=== PATIENT | male | born 1930 | race Caucasian/White ===

== ENCOUNTER 2017-11-12 19:06 | Inpatient (IN) | payer MEDICARE ==
[~2017-11-12] VITALS: Ht 182.9 cm; Wt 61.0 kg
--- NOTE | 2017-11-12 19:41 | PHYS DOC ---
Adult General Chief Complaint Chief Complaint: PSYCH EVALUATION HPI HPI Patient is a 87 year old M who presents with medical clearance for [facility]. Patient has been accepted to the [facility] for increased combativeness and worsening altered mental status. Patient has no family at bedside and is an alert and oriented 1. Review of Systems Review of Systems Review of systems unable to obtain secondary to clinical condition All other systems were reviewed and found to be within normal limits, except as documented in this note. Physical Exam Physical Exam GEN.: No apparent distress. Alert and oriented x 1 HEENT: Head is normocephalic, atraumatic NECK: Supple. LUNGS: CTAB. HEART: RRR, 4/6 REFUGIO. Peripheral pulses intact ABDOMEN: Soft, nontender. Positive bowel sounds. EXTREMITIES: Without any cyanosis. NEUROLOGIC: AOx1 PSYCHIATRIC: Confused SKIN: No ulcerations EKG EKG 1943: EKG shows normal sinus rhythm rate of 85 no STEMI[] Radiology/Procedures Radiology/Procedures [] Course & Med Decision Making Course & Med Decision Making Pertinent Labs and Imaging studies reviewed. (See chart for details) MDM: After reviewing the chart, CC/HPI/PMH, physical exam, [lab results], I do not believe the patient has emergent medical condition warranting further workup and /or admission at this time. I believe the patient is stable to be transferred to the [facility] unit for further psychiatric evaluation. [] Dragon Disclaimer Dragon Disclaimer This electronic medical record was generated, in whole or in part, using a voice recognition dictation system. Departure Departure: Impression: Primary Impression: Combative behavior Additional Impression: Dementia Disposition: 65 XFER TO PSYCH HOSP/UNIT Condition: STABLE Referrals: PCP,UNKNOWN (PCP) Problem Qualifiers JAYY GARY DO Nov 12, 2017 19:41
[2017-11-12 19:45] VITALS: BP 172/72
[2017-11-12 20:31] LABS: BASO # 0.1 x10^3/uL (0.0-0.2); BASO % 1 % (0-3); EOS # 0.4 x10^3/uL (0.0-0.7); EOS % 7 % (0-3); HEMATOCRIT 35.5 % (39.0-53.0); HEMOGLOBIN 12.1 g/dL (13.0-17.5); LYMPH # 1.2 x10^3/uL (1.0-4.8); LYMPH % 20 % (24-48); MEAN CORPUSCULAR HEMOGLOBIN 31 pg (25-35); MEAN CORPUSCULAR HGB CONC 34 g/dL (31-37); MEAN CORPUSCULAR VOLUME 92 fL (79-100); MONO # 0.7 x10^3/uL (0.0-1.1); MONO % 11 % (0-9); NEUT # 3.8 x10^3uL (1.8-7.7); NEUT % 62 % (31-73); PLATELET COUNT 223 x10^3/uL (140-400); RED BLOOD COUNT 3.85 x10^6/uL (4.30-5.70); RED CELL DISTRIBUTION WIDTH 15.8 % (11.5-14.5); WHITE BLOOD COUNT 6.2 x10^3/uL (4.0-11.0)
[2017-11-12 20:51] LABS: ALBUMIN 3.2 g/dL (3.4-5.0); ALBUMIN/GLOBULIN RATIO 0.9 (1.0-1.7); CALCIUM 8.6 mg/dL (8.5-10.1); GFR 70.4; POTASSIUM 3.6 mmol/L (3.5-5.1); TOTAL BILIRUBIN 0.4 mg/dL (0.2-1.0); TOTAL PROTEIN 6.7 g/dL (6.4-8.2)
[2017-11-12 20:53] LABS: BILIRUBIN,URINE NEG (NEG); CLARITY,URINE CLEAR; COLOR,URINE YELLOW; GLUCOSE,URINE NEG (NEG)
[2017-11-12 20:54] LABS: BACTERIA,URINE 0 /HPF (0-FEW); NITRITE,URINE NEG (NEG); SQUAMOUS EPITHELIAL CELL,UR OCC /LPF; UROBILINOGEN,URINE 2 mg/dL (0.2 mg/dL); WBC,URINE OCC /HPF (0-4)
[2017-11-12 20:58] LABS: AMPHETAMINE/METHAMPHETAMINE NEG (NEG); BARBITURATES NEG (NEG); BENZODIAZEPINES NEG (NEG); CANNABINOIDS NEG (NEG); COCAINE NEG (NEG); METHADONE NEG (NEG); OPIATES NEG (NEG); PHENCYCLIDINE NEG (NEG)
[2017-11-12] MEDS ORDERED: CLOP75TA PO (22:01)
[2017-11-12] MEDS ORDERED: ACET325T9 PO ×2 (22:01)
[2017-11-12] MEDS ORDERED: LEVE500T56 PO (22:01)
[2017-11-12] MEDS ORDERED: CHOL500021 PO (22:01)
[2017-11-12] MEDS ORDERED: TRIA15CR50 TP (22:01)
[2017-11-12] MEDS ORDERED: HYDR1TAB12 PO (22:01)
[2017-11-12] MEDS ORDERED: LEVO100T5 PO (22:01)
[2017-11-12] MEDS ORDERED: VIT1CAPS12 PO (22:01)
[2017-11-12] MEDS ORDERED: MIRT15TA PO (22:01)
[2017-11-12] MEDS ORDERED: LORA0.5T PO (22:01)
[2017-11-12] MEDS ORDERED: MAG HYDROX/AL HYDROX/SIMETH 30 ML ORAL.SUSP PO PRN (22:15)
[2017-11-12] MEDS ORDERED: ACETAMINOPHEN 325 MG TABLET PO PRN ×2 (22:15→23:15)
[2017-11-12 22:22] VITALS: BP 142/75
[2017-11-12] MEDS: MIRTAZAPINE 15 MG TABLET PO SCH (22:30)
[2017-11-12] MEDS: LORazepam 0.5 MG TABLET PO SCH (22:30)
--- NOTE | 2017-11-12 22:41 | EKG ---
[address] [address] Test Date: 2017-11-12 Test Time: 19:40:14 Pat Name: CHRIS MEHTA Department: Room: [address] [place] [address] Gender: M [employer]per: : 1930 Requested By: JAYY GARY Order Number: [id number] Reading MD: Tanvir Whitman Measurements Intervals [place] Rate: 85 P: 36 SD: 186 QRS: 33 QRSD: 78 T: 44 QT: 356 QTc: 429 Interpretive Statements SINUS RHYTHM Electronically Signed On 11-25-2017 9:54:45 CDT by Tanvir Whitman
[2017-11-12] MEDS ORDERED: TRIAMCINOLONE ACETONIDE 0.1% TOPICAL CREAM 15GM TUBE. TP PRN (23:15)
[2017-11-13] MEDS: MIRTAZAPINE 15 MG TABLET PO SCH ×2 (02:09→19:33)
[2017-11-13] MEDS: LORazepam 0.5 MG TABLET PO SCH ×4 (02:09→19:33)
[2017-11-13 06:29] VITALS: BP 137/65
[2017-11-13] MEDS: LEVOTHYROXINE 100 MCG TABLET PO SCH (08:34)
[2017-11-13] MEDS: MULTIVITAMIN I-VITE TABLET. PO SCH (08:34)
[2017-11-13] MEDS: ACETAMINOPHEN 325 MG TABLET PO SCH ×2 (08:34→19:33)
[2017-11-13] MEDS: CLOPIDOGREL BISULFATE 75 MG TABLET PO SCH (08:34)
[2017-11-13] MEDS ORDERED: levETIRAcetam 500 MG TABLET PO SCH (09:00)
[2017-11-13 14:29] LABS: THYROID STIM HORMONE (TSH) 1.443 uIU/mL (0.358-3.740)
[2017-11-13 15:55] VITALS: BP 120/57
[2017-11-13] MEDS: CYANOCOBALAMIN (VITAMIN B-12) 1,000 MCG/ML VIAL IM SCH (18:23)
[2017-11-13 19:12] LABS: T3 TOTAL 80 ng/dL (71-180)
--- NOTE | 2017-11-13 19:47 | HP ---
ADMIT DATE: 11/13/2017 PSYCHIATRIC ADMISSION HISTORY/EVALUATION This note covers elements not covered in my initial note of 11/13/2017. IDENTIFYING DATA: The patient is an 87-year-old male referred from [facility] by Dr. Mccormick, his primary care physician, Dr. Phipps, psychiatrist on account of worsening confusion and agitation. The patient has been combative, restless, having increased falls, disoriented. Ativan p.r.n. was utilized and he had to be placed on one-on-one status due to his restlessness and he was unmanageable at the long term, thus resulting in this referral. CHIEF COMPLAINT: "I have been here a long time." In fact, the patient was just admitted yesterday. HISTORY OF PRESENT ILLNESS: The patient has a history of dementia, Alzheimer's vascular type. He has been residing at [facility]. More recently, he has been increasingly agitated with marked mood lability from appearing depressed, psychotic sleep and appetite changes. No clear history of suicidal or homicidal ideation. No clear history of bipolar disorder. Confusion has been progressively worsening. PAST PSYCHIATRIC HISTORY: As above. PAST MEDICAL HISTORY: Hypothyroidism, macular degeneration, impaired ambulation, in wheelchair, history of kidney stones, seizure disorder, vitamin deficiency. ALLERGIES: TO ASPIRIN. CODE STATUS: DNR. DIET: Regular. FAMILY HISTORY: Noncontributory. SOCIAL HISTORY: No history of alcohol, drug abuse, physical, sexual or elder abuse history is noted. Not known to be a perpetrator. CURRENT PSYCHOTROPICS: Keppra 500 mg b.i.d., Ativan 0.5 mg t.i.d., Remeron 7.5 mg at bedtime. FAMILY HISTORY: Noncontributory. MENTAL STATUS EXAMINATION: The patient was seen individually in evening of 11/13/2017. He is in his wheelchair. Eye contact is poor. Speech moderate to marked latency, low in rate and rhythm, low in volume, often responses monosyllabic. He is not very verbal. Insight, judgment, recent and remote memory, attention, concentration, fund of knowledge is poor, consistent with his diagnoses. ASSETS: Stable living at the long term. REACTION TO HOSPITALIZATION: The patient is oblivious and accepting. IMPRESSION: Major neurocognitive disorder, Alzheimer, vascular with depression, delusion, behavioral disturbance; anxiety disorder, unspecified; impulse control disorder, unspecified. Rest as above. PLAN: Admit the Geropsychiatry Unit at [facility]. I will see the patient daily individually from a psychiatric standpoint, medical followup per Dr. Martins/Dr Martin. Could continue current psychotropics, observe baseline followup with routine labs then adjust psychotropics as clinically indicated. Estimated length of stay is 10-12 days. DISCHARGE PLANS: Back to [facility] when stable. MAN Rosas SEPULVEDA MD DR: CHASE/wally JOB#: [id number] / [id number]
--- NOTE | 2017-11-13 20:33 | PDOC ---
Exam Note: Slava Note: Please also refer to the separate dictated note~for this date of service dictated separately.~Patient seen individually. Discussed the patient with Nursing staff reviewed the chart.~Reviewed interim history and current functioning. Reviewed vital signs,~Labs/ Radiology~and current medications noted below. Continue current treatment with the changes noted in the dictated addendum note Assessment: Vital Signs: Vital Signs Date Time Temp Pulse Resp B/P (MAP) Pulse Ox O2 Delivery O2 Flow Rate FiO2 11/13/17 15:55 97.1 74 16 120/57 (78) 93 11/12/17 19:57 Room Air I&O Intake and Output 11/13/17 07:00 Intake Total 120 ml Balance 120 ml Intake Oral 120 ml # Voids 1 Current Medications: Meds: Current Medications Acetaminophen (Tylenol) 650 mg PRN Q6HRS PRN PO PAIN / TEMP; Start 11/12/17 at 22:15; Stop 11/12/17 at 23:06; Status DC Al Hydroxide/Mg Hydroxide (Mylanta Plus Xs) 15 ml PRN AFTMEALHC PRN PO DYSPEPSIA; Start 11/12/17 at 22:15 Magnesium Hydroxide (Milk Of Magnesia) 2,400 mg PRN QHS PRN PO CONSTIPATION; Start 11/12/17 at 22:15 Lorazepam (Ativan) 0.5 mg TID PO Last administered on 11/13/17at 19:33; Start at 22:30 Mirtazapine (Remeron) 15 mg QHS PO Last administered on 11/13/17 19:33; Start 11/12/17 at 22:30 Acetaminophen (Tylenol) 650 mg BID PO Last administered on 11/13/17at 19:33; Start 11/13/17 at 09:00 Acetaminophen (Tylenol) 650 mg PRN Q4HRS PRN PO PAIN / TEMP; Start 11/12/17 at 23:15 Vitamin D (Vitamin D3) 50,000 unit QTH PO ; Start 11/14/17 at 16:00 Clopidogrel Bisulfate (Plavix) 75 mg DAILY PO Last administered on 11/13/17at 08 :34; Start 11/13/17 at 09:00 Levetiracetam (Keppra) 500 mg BID PO Last administered on 11/13/17at 08:34; Start 11/13/17 at 09:00; Stop 11/13/17 at 09:43; Status DC Levothyroxine Sodium (Synthroid) 100 mcg DAILYAC PO Last administered on at 08:34; Start 11/13/17 at 07:30 Acetaminophen/ Hydrocodone Bitart (Lortab 5/325) 1 tab PRN Q4HRS PRN PO PAIN; Start 11/12/17 at 23:15 Triamcinolone Acetonide (Kenalog) 1 jyoti PRN DAILY PRN TP ITCHING/REDNESS; Start 11/12/17 at 23:15 Multivitamins/ Minerals (I-Kevin) 1 tab DAILY PO Last administered on 11/13/17at 08:34; Start 11/13/17 at 09:00 Levetiracetam (Keppra) 500 mg BID PO Last administered on 11/13/17at 19:34; Start 11/13/17 at 10:00 Cyanocobalamin (Vitamin B-12) 1,000 mcg WEEKLY IM Last administered on at 18:23; Start 11/13/17 at 17:30 Active Scripts Active Reported D3-50 (Cholecalciferol (Vitamin D3)) 50,000 Unit Capsule 50,000 Unit PO QTH Vicodin 5-300 Mg Tablet (Hydrocodone Bit/Acetaminophen) 1 Each Tablet 1 Tab PO PRN Q4HRS PRN Tylenol (Acetaminophen) 325 Mg Tablet 650 Mg PO BID Tylenol (Acetaminophen) 325 Mg Tablet 650 Mg PO PRN Q4HRS PRN Triamcinolone Acetonide 15 Gm Cream..g. 1 Gm TP PRN DAILY PRN Remeron (Mirtazapine) 15 Mg Tablet 7.5 Mg PO QHS Preservision Areds Softgel (Vit A/Vit C/Vit E/Zinc/Copper) 1 Each Capsule 1 Cap PO DAILY Lorazepam 0.5 Mg Tablet 0.5 Mg PO TID Levothyroxine Sodium 100 Mcg Tablet 100 Mcg PO DAILYAC Keppra (Levetiracetam) 500 Mg Tablet 500 Mg PO BID Clopidogrel (Clopidogrel Bisulfate) 75 Mg Tablet 75 Mg PO DAILY I have reviewed the current psychotropics carefully including drug interactions. Risk benefit ratio favors no change other than as noted in my dictated progress note. Diagnosis: Problems: (1) Dementia (2) Combative behavior (3) Anxiety disorder (4) Dementia in Alzheimer's disease with delusions (5) Dementia in Alzheimer's disease with depression (6) Dementia, vascular, with delusions (7) Dementia, vascular, with depression (8) Impulse control disorder (9) Psychosis, atypical AYSHA SEPULVEDA MD Nov 13, 2017 20:33
[2017-11-14 02:08] LABS: HEMOGLOBIN A1C 5.3 % (4.8-5.6)
[2017-11-14 06:23] VITALS: BP 171/63
[2017-11-14] MEDS: LEVOTHYROXINE 100 MCG TABLET PO SCH (09:17)
[2017-11-14] MEDS: CLOPIDOGREL BISULFATE 75 MG TABLET PO SCH (09:17)
[2017-11-14] MEDS: ACETAMINOPHEN 325 MG TABLET PO SCH ×2 (09:17→19:33)
[2017-11-14] MEDS: LORazepam 0.5 MG TABLET PO SCH ×3 (09:17→19:32)
[2017-11-14] MEDS: MULTIVITAMIN I-VITE TABLET. PO SCH (09:17)
--- NOTE | 2017-11-14 13:14 | CONS ---
DATE OF CONSULTATION: 11/13/2017 REASON FOR CONSULTATION: Medical management. HISTORY OF PRESENT ILLNESS: The patient is an 87-year-old male patient who basically was [facility] on account of increasing combativeness, worsening altered mental status. He apparently has been more disoriented with increased falls. All this in the background of dementia with behavioral disorder and was admitted to this facility for inpatient psychiatric stabilization. PAST MEDICAL HISTORY: Significant for hypothyroidism, senile macular degeneration, kidney stones, seizure disorder, and vitamin deficiency. PAST SURGICAL HISTORY: Unremarkable. PAST PSYCHIATRIC HISTORY: Significant for dementia, insomnia, major depressive disorder and generalized anxiety disorder. ALLERGIES: He is allergic to ASPIRIN. MEDICATIONS: He is currently on following medications: He is on Plavix 75 mg once a day, hydrocodone/APAP 5/325 mg 1 tablet every 4 hours, Tylenol 650 every 4 hours as needed, Keppra 500 mg twice a day, mirtazapine 7.5 mg at bedtime, lorazepam 0.5 mg 3 times a day, levothyroxine sodium 100 mcg once a day, triamcinolone acetonide cream applied topically as needed for inflammation or redness, ergocalciferol 50,000 units once a week, multivitamin 1 tablet once a day. REVIEW OF SYSTEMS: As per history of present illness. FAMILY HISTORY: Unremarkable. SOCIAL HISTORY: He apparently a resident at [facility]. He is , has a son and a daughter has never smoked, does not drink alcohol. PHYSICAL EXAMINATION: GENERAL: When I examined him, he was pale, cachectic, but no jaundice or cyanosis. No lymphadenopathy, no thyromegaly. No jugular venous distension. No limb edema. VITAL SIGNS: His heart rate was 74, blood pressure was 120/57, temperature was 97.1, respiratory rate was 16, and oxygen saturation was 93%. HEAD, EYES, EARS, NOSE, AND THROAT: Showed normocephalic, atraumatic. NECK: Supple. HEART: Showed normal first and second heart sounds with no gallop, rub or murmur. CHEST: Clear to auscultation. No crepitation or rhonchi. ABDOMEN: Distended, soft, nontender. No guarding or rigidity. No organomegaly. Hernial orifices intact. Bowel sounds normal. NEUROLOGIC: He is awake, alert, clearly visually impaired, but all other cranial nerves are intact. EXTREMITIES: He moves extremities without difficulty; however, he is mostly wheelchair bound. LABORATORY DATA: Showed a white cell count of 6200, hemoglobin 12, hematocrit 36, MCV 92, and platelet count 223,000. His chemistry showed a serum sodium 143, potassium 3.6, chloride 106, bicarbonate 32, anion gap of 5, BUN 15, creatinine 1, estimated GFR was 70 mL per minute. His glucose was 122, calcium was 8.6, magnesium was 2. Serum iron 149, TIBC was 227 and percent saturation was 22%. Total bilirubin, AST, ALT, alkaline phosphatase were normal. Total protein 6.7, albumin was 3.2. His serum triglycerides were 69, total cholesterol 191, LDL 125, VLDL was 13, and HDL cholesterol was 53. His TSH is normal at 1.44, 25-hydroxy vitamin D was 60; however, vitamin B12 is low at 245 pg/mL. His urinalysis which showed on the urine was yellow, clear with a pH of 6.5, specific gravity of 1.025. There was small amount of blood, negative for nitrite and leukocyte esterase. There is 1-2 rbc's, occasional wbc's, no bacteria and toxic screen was negative. IMPRESSION: In summary, this is an 87-year-old male patient who was admitted on account of increasing combativeness, restlessness, agitation. All this in a background of dementia with behavioral disorder and his signs are stable. His lab work is mostly within acceptable range except his vitamin B12 is low for which I will start him on cyanocobalamin. I will follow all his other lab work and decide on further management. Thank you, Dr. Pena for allowing me to participate in the care of this patient. CRIS BOBBY MD DR: OMER/wally JOB#: [id number] / [id number]
[2017-11-14] MEDS ORDERED: LORazepam 0.5 MG TABLET PO PRN (14:00)
[2017-11-14] MEDS: CHOLECALCIFEROL (VITAMIN D3) 50,000 UNIT CAPSULE PO SCH (16:20)
[2017-11-14 16:38] VITALS: BP 114/68
[2017-11-14] MEDS: MIRTAZAPINE 15 MG TABLET PO SCH (19:32)
[2017-11-14] MEDS ORDERED: LORazepam 0.5 MG TABLET PO SCH (21:00)
--- NOTE | 2017-11-14 21:18 | PDOC ---
Exam Note: Slava Note: Please also refer to the separate dictated note~for this date of service dictated separately.~Patient seen individually. Discussed the patient with Nursing staff reviewed the chart.~Reviewed interim history and current functioning. Reviewed vital signs,~Labs/ Radiology~and current medications noted below. Continue current treatment with the changes noted in the dictated addendum note Assessment: Vital Signs: Vital Signs Date Time Temp Pulse Resp B/P (MAP) Pulse Ox O2 Delivery O2 Flow Rate FiO2 11/14/17 16:38 97.4 85 16 114/68 (83) 96 11/12/17 19:57 Room Air I&O Intake and Output 11/14/17 07:00 Intake Total 1020 ml Balance 1020 ml Intake Oral 1020 ml # Voids 1 Current Medications: Meds: Current Medications Acetaminophen (Tylenol) 650 mg PRN Q6HRS PRN PO PAIN / TEMP; Start 11/12/17 at 22:15; Stop 11/12/17 at 23:06; Status DC Al Hydroxide/Mg Hydroxide (Mylanta Plus Xs) 15 ml PRN AFTMEALHC PRN PO DYSPEPSIA; Start 11/12/17 at 22:15 Magnesium Hydroxide (Milk Of Magnesia) 2,400 mg PRN QHS PRN PO CONSTIPATION; Start 11/12/17 at 22:15 Lorazepam (Ativan) 0.5 mg TID PO Last administered on 11/14/17at 09:17; Start at 22:30; Stop 11/14/17 at 13:07; Status DC Mirtazapine (Remeron) 15 mg QHS PO Last administered on 11/14/17at 19:32; Start 11/12/17 at 22:30 Acetaminophen (Tylenol) 650 mg BID PO Last administered on 11/14/17at 19:33; Start 11/13/17 at 09:00 Acetaminophen (Tylenol) 650 mg PRN Q4HRS PRN PO PAIN / TEMP; Start 11/12/17 at 23:15 Vitamin D (Vitamin D3) 50,000 unit QTH PO Last administered on 11/14/17at 16:20 ; Start 11/14/17 at 16:00 Clopidogrel Bisulfate (Plavix) 75 mg DAILY PO Last administered on 11/14/17at 09 :17; Start 11/13/17 at 09:00 Levetiracetam (Keppra) 500 mg BID PO Last administered on 11/13/17at 08:34; Start 11/13/17 at 09:00; Stop 11/13/17 at 09:43; Status DC Levothyroxine Sodium (Synthroid) 100 mcg DAILYAC PO Last administered on at 09:17; Start 11/13/17 at 07:30; Stop 11/14/17 at 16:49; Status DC Acetaminophen/ Hydrocodone Bitart (Lortab 5/325) 1 tab PRN Q4HRS PRN PO PAIN; Start 11/12/17 at 23:15 Triamcinolone Acetonide (Kenalog) 1 jyoti PRN DAILY PRN TP ITCHING/REDNESS; Start 11/12/17 at 23:15 Multivitamins/ Minerals (I-Kevin) 1 tab DAILY PO Last administered on 11/14/17at 09:17; Start 11/13/17 at 09:00 Levetiracetam (Keppra) 500 mg BID PO Last administered on 11/14/17at 19:32; Start 11/13/17 at 10:00 Cyanocobalamin (Vitamin B-12) 1,000 mcg WEEKLY IM Last administered on at 18:23; Start 11/13/17 at 17:30 Lorazepam (Ativan) 0.5 mg BID PO ; Start 11/14/17 at 21:00; Stop 11/14/17 at 21: 00; Status DC Lorazepam (Ativan) 0.25 mg DAILY@1400 PRN PO ANXIETY / AGITATION; Start at 14:00; Stop 11/14/17 at 14:00; Status DC Lorazepam (Ativan) 0.25 mg DAILY PO ; Start 11/16/17 at 09:00; Stop 11/23/17 at 09:01 Lorazepam (Ativan) 0.25 mg DAILY@1400 PO Last administered on 11/14/17at 13:40; Start 11/14/17 at 14:00; Stop 11/19/17 at 14:01 Lorazepam (Ativan) 0.5 mg QHS PO Last administered on 11/14/17at 19:32; Start at 21:00; Stop 4/29/18 at 21:01 Lorazepam (Ativan) 0.25 mg QHS PO ; Start 11/18/17 at 21:00; Stop 11/21/17 at 21: 01 Lorazepam (Ativan) 0.5 mg DAILY PO ; Start 11/15/17 at 09:00; Stop 11/15/17 at 09:01 Levothyroxine Sodium (Synthroid) 100 mcg DAILY06 PO ; Start 11/15/17 at 06:00 Quetiapine Fumarate (SEROquel) 12.5 mg DAILY PO ; Start 11/15/17 at 09:00 Olanzapine (ZyPREXA ZYDIS) 1.25 mg PRN Q2HR PRN PO PSYCHOSIS; Start 11/14/17 at 18:15 Active Scripts Active Reported D3-50 (Cholecalciferol (Vitamin D3)) 50,000 Unit Capsule 50,000 Unit PO QTH Vicodin 5-300 Mg Tablet (Hydrocodone Bit/Acetaminophen) 1 Each Tablet 1 Tab PO PRN Q4HRS PRN Tylenol (Acetaminophen) 325 Mg Tablet 650 Mg PO BID Tylenol (Acetaminophen) 325 Mg Tablet 650 Mg PO PRN Q4HRS PRN Triamcinolone Acetonide 15 Gm Cream..g. 1 Gm TP PRN DAILY PRN Remeron (Mirtazapine) 15 Mg Tablet 7.5 Mg PO QHS Preservision Areds Softgel (Vit A/Vit C/Vit E/Zinc/Copper) 1 Each Capsule 1 Cap PO DAILY Lorazepam 0.5 Mg Tablet 0.5 Mg PO TID Levothyroxine Sodium 100 Mcg Tablet 100 Mcg PO DAILYAC Keppra (Levetiracetam) 500 Mg Tablet 500 Mg PO BID Clopidogrel (Clopidogrel Bisulfate) 75 Mg Tablet 75 Mg PO DAILY I have reviewed the current psychotropics carefully including drug interactions. Risk benefit ratio favors no change other than as noted in my dictated progress note. Diagnosis: Problems: (1) Dementia (2) Combative behavior (3) Anxiety disorder (4) Dementia in Alzheimer's disease with delusions (5) Dementia in Alzheimer's disease with depression (6) Dementia, vascular, with delusions (7) Dementia, vascular, with depression (8) Impulse control disorder (9) Psychosis, atypical AYSHA SEPULVEDA MD Nov 14, 2017 21:17
[2017-11-15] MEDS: LEVOTHYROXINE 100 MCG TABLET PO SCH (05:45)
[2017-11-15 06:03] VITALS: BP 123/65
[2017-11-15] MEDS ORDERED: LORazepam 0.5 MG TABLET PO SCH (09:00)
[2017-11-15] MEDS: CLOPIDOGREL BISULFATE 75 MG TABLET PO SCH (09:41)
[2017-11-15] MEDS: ACETAMINOPHEN 325 MG TABLET PO SCH ×2 (09:41→19:25)
[2017-11-15] MEDS: MULTIVITAMIN I-VITE TABLET. PO SCH (09:41)
[2017-11-15] MEDS: QUEtiapine 25 MG TABLET. PO SCH (09:44)
[2017-11-15] MEDS: LORazepam 0.5 MG TABLET PO SCH ×2 (14:10→19:27)
[2017-11-15 16:34] VITALS: BP 106/53
[2017-11-15] MEDS: MIRTAZAPINE 15 MG TABLET PO SCH (19:25)
--- NOTE | 2017-11-15 23:05 | PDOC ---
Exam Note: Slava Note: Please also refer to the separate dictated note~for this date of service dictated separately.~Patient seen individually. Discussed the patient with Nursing staff reviewed the chart.~Reviewed interim history and current functioning. Reviewed vital signs,~Labs/ Radiology~and current medications noted below. Continue current treatment with the changes noted in the dictated addendum note Assessment: Vital Signs: Vital Signs Date Time Temp Pulse Resp B/P (MAP) Pulse Ox O2 Delivery O2 Flow Rate FiO2 11/15/17 16:34 98.4 91 20 106/53 (70) 96 11/12/17 19:57 Room Air I&O Intake and Output 11/15/17 07:00 Intake Total 480 ml Balance 480 ml Intake Oral 480 ml # Voids 3 Current Medications: Meds: Current Medications Acetaminophen (Tylenol) 650 mg PRN Q6HRS PRN PO PAIN / TEMP; Start 11/12/17 at 22:15; Stop 11/12/17 at 23:06; Status DC Al Hydroxide/Mg Hydroxide (Mylanta Plus Xs) 15 ml PRN AFTMEALHC PRN PO DYSPEPSIA; Start 11/12/17 at 22:15 Magnesium Hydroxide (Milk Of Magnesia) 2,400 mg PRN QHS PRN PO CONSTIPATION; Start 11/12/17 at 22:15 Lorazepam (Ativan) 0.5 mg TID PO Last administered on 11/14/17at 09:17; Start at 22:30; Stop 11/14/17 at 13:07; Status DC Mirtazapine (Remeron) 15 mg QHS PO Last administered on 11/15/17at 19:25; Start 11/12/17 at 22:30 Acetaminophen (Tylenol) 650 mg BID PO Last administered on 11/15/17 19:25; Start 11/13/17 at 09:00 Acetaminophen (Tylenol) 650 mg PRN Q4HRS PRN PO PAIN / TEMP; Start 11/12/17 at 23:15 Vitamin D (Vitamin D3) 50,000 unit QTH PO Last administered on 11/14/17at 16:20 ; Start 11/14/17 at 16:00 Clopidogrel Bisulfate (Plavix) 75 mg DAILY PO Last administered on 11/15/17at 09 :41; Start 11/13/17 at 09:00 Levetiracetam (Keppra) 500 mg BID PO Last administered on 11/13/17at 08:34; Start 11/13/17 at 09:00; Stop 11/13/17 at 09:43; Status DC Levothyroxine Sodium (Synthroid) 100 mcg DAILYAC PO Last administered on at 09:17; Start 11/13/17 at 07:30; Stop 11/14/17 at 16:49; Status DC Acetaminophen/ Hydrocodone Bitart (Lortab 5/325) 1 tab PRN Q4HRS PRN PO PAIN; Start 11/12/17 at 23:15 Triamcinolone Acetonide (Kenalog) 1 jyoti PRN DAILY PRN TP ITCHING/REDNESS; Start 11/12/17 at 23:15 Multivitamins/ Minerals (I-Kevin) 1 tab DAILY PO Last administered on 11/15/17at 09:41; Start 11/13/17 at 09:00 Levetiracetam (Keppra) 500 mg BID PO Last administered on 11/15/17at 19:27; Start 11/13/17 at 10:00 Cyanocobalamin (Vitamin B-12) 1,000 mcg WEEKLY IM Last administered on at 18:23; Start 11/13/17 at 17:30 Lorazepam (Ativan) 0.5 mg BID PO ; Start 11/14/17 at 21:00; Stop 11/14/17 at 21: 00; Status DC Lorazepam (Ativan) 0.25 mg DAILY@1400 PRN PO ANXIETY / AGITATION; Start at 14:00; Stop 11/14/17 at 14:00; Status DC Lorazepam (Ativan) 0.25 mg DAILY PO ; Start 11/16/17 at 09:00; Stop 11/23/17 at 09:01 Lorazepam (Ativan) 0.25 mg DAILY@1400 PO Last administered on 11/15/17at 14:10; Start 11/14/17 at 14:00; Stop 11/19/17 at 14:01 Lorazepam (Ativan) 0.5 mg QHS PO Last administered on 11/15/17at 19:27; Start at 21:00; Stop 11/17/17 at 21:01 Lorazepam (Ativan) 0.25 mg QHS PO ; Start 11/18/17 at 21:00; Stop 11/21/17 at 21: 01 Lorazepam (Ativan) 0.5 mg DAILY PO Last administered on 11/15/17at 09:43; Start 11/15/17 at 09:00; Stop 11/15/17 at 09:01; Status DC Levothyroxine Sodium (Synthroid) 100 mcg DAILY06 PO Last administered on at 05:45; Start 11/15/17 at 06:00 Quetiapine Fumarate (SEROquel) 12.5 mg DAILY PO Last administered on 11/15/17at 09:44; Start 11/15/17 at 09:00 Olanzapine (ZyPREXA ZYDIS) 1.25 mg PRN Q2HR PRN PO PSYCHOSIS Last administered on 11/15/17at 14:25; Start 11/14/17 at 18:15 Active Scripts Active Reported D3-50 (Cholecalciferol (Vitamin D3)) 50,000 Unit Capsule 50,000 Unit PO QTH Vicodin 5-300 Mg Tablet (Hydrocodone Bit/Acetaminophen) 1 Each Tablet 1 Tab PO PRN Q4HRS PRN Tylenol (Acetaminophen) 325 Mg Tablet 650 Mg PO BID Tylenol (Acetaminophen) 325 Mg Tablet 650 Mg PO PRN Q4HRS PRN Triamcinolone Acetonide 15 Gm Cream..g. 1 Gm TP PRN DAILY PRN Remeron (Mirtazapine) 15 Mg Tablet 7.5 Mg PO QHS Preservision Areds Softgel (Vit A/Vit C/Vit E/Zinc/Copper) 1 Each Capsule 1 Cap PO DAILY Lorazepam 0.5 Mg Tablet 0.5 Mg PO TID Levothyroxine Sodium 100 Mcg Tablet 100 Mcg PO DAILYAC Keppra (Levetiracetam) 500 Mg Tablet 500 Mg PO BID Clopidogrel (Clopidogrel Bisulfate) 75 Mg Tablet 75 Mg PO DAILY I have reviewed the current psychotropics carefully including drug interactions. Risk benefit ratio favors no change other than as noted in my dictated progress note. Diagnosis: Problems: (1) Dementia (2) Combative behavior (3) Anxiety disorder (4) Dementia in Alzheimer's disease with delusions (5) Dementia in Alzheimer's disease with depression (6) Dementia, vascular, with delusions (7) Dementia, vascular, with depression (8) Impulse control disorder (9) Psychosis, atypical AYSHA SEPULVEDA MD Nov 15, 2017 23:05
[2017-11-16] MEDS: LEVOTHYROXINE 100 MCG TABLET PO SCH (06:16)
[2017-11-16 06:45] VITALS: BP 137/77
[2017-11-16] MEDS: MULTIVITAMIN I-VITE TABLET. PO SCH (08:46)
[2017-11-16] MEDS: LORazepam 0.5 MG TABLET PO SCH ×3 (08:46→20:04)
[2017-11-16] MEDS: CLOPIDOGREL BISULFATE 75 MG TABLET PO SCH (08:47)
[2017-11-16] MEDS: QUEtiapine 25 MG TABLET. PO SCH (08:47)
[2017-11-16] MEDS: ACETAMINOPHEN 325 MG TABLET PO SCH ×2 (08:48→20:01)
[2017-11-16 17:46] VITALS: BP 109/68
[2017-11-16] MEDS: MIRTAZAPINE 15 MG TABLET PO SCH (20:01)
--- NOTE | 2017-11-16 21:51 | PN ---
DATE: 11/14/2017 PSYCHIATRIC PROGRESS NOTE This is a late entry for 11/14/2017, covers elements not covered in my initial note of 11/14/2017. SUBJECTIVE: The patient was staffed at a treatment team meeting with the entire team in the morning and the patient's son, Celestino attended this conference and seen individually in the evening. The patient slept about 6 hours. He is resistive to taking his medications, appropriate with assessments, takes his medications crushed in ice cream, quite confused, needs helping fed as well, restless, anxious, more so in the morning. History from the son indicates he had a seizure episode in August, started on Keppra in 03/2017. Son would like the Ativan reduced, which is very understandable since part of the problems the patient has been are recurrent falls and worsening confusion. Benzodiazepines could contribute to this within the context of his dementia. REVIEW OF SYSTEMS: Ambulation impaired. No CV, , pulmonary, eye, ENT system symptoms on review. Reliability poor. MENTAL STATUS EXAM: Oriented to himself. Insight, judgment, recent and remote memory, attention, concentration, fund of knowledge poor, consistent with his diagnosis. IMPRESSION: Major neurocognitive disorder, Alzheimer, vascular with depression, delusion, behavioral disturbance. Rest unchanged. PLAN: Taper the Ativan gradually and I have entered a detailed taper for this. Continue rest unchanged. We will add Seroquel 12.5 mg at 9:00 a.m. to help with the marked agitation noted by nursing staff in the morning. AYSHA SEPULVEDA MD DR: CHASE/wally JOB#: [id number] / [id number]
--- NOTE | 2017-11-16 22:39 | PDOC ---
Exam Note: Slava Note: Please also refer to the separate dictated note~for this date of service dictated separately.~Patient seen individually. Discussed the patient with Nursing staff reviewed the chart.~Reviewed interim history and current functioning. Reviewed vital signs,~Labs/ Radiology~and current medications noted below. Continue current treatment with the changes noted in the dictated addendum note Assessment: Vital Signs: Vital Signs Date Time Temp Pulse Resp B/P (MAP) Pulse Ox O2 Delivery O2 Flow Rate FiO2 11/16/17 17:46 97.9 66 18 109/68 (82) 97 11/12/17 19:57 Room Air I&O Intake and Output 11/16/17 07:00 Intake Total 780 ml Balance 780 ml Intake Oral 780 ml # Voids 3 Current Medications: Meds: Current Medications Acetaminophen (Tylenol) 650 mg PRN Q6HRS PRN PO PAIN / TEMP; Start 11/12/17 at 22:15; Stop 11/12/17 at 23:06; Status DC Al Hydroxide/Mg Hydroxide (Mylanta Plus Xs) 15 ml PRN AFTMEALHC PRN PO DYSPEPSIA; Start 11/12/17 at 22:15 Magnesium Hydroxide (Milk Of Magnesia) 2,400 mg PRN QHS PRN PO CONSTIPATION; Start 11/12/17 at 22:15 Lorazepam (Ativan) 0.5 mg TID PO Last administered on 11/14/17at 09:17; Start at 22:30; Stop 11/14/17 at 13:07; Status DC Mirtazapine (Remeron) 15 mg QHS PO Last administered on 11/16/17at 20:01; Start 11/12/17 at 22:30 Acetaminophen (Tylenol) 650 mg BID PO Last administered on 11/16/17at 20:01; Start 11/13/17 at 09:00 Acetaminophen (Tylenol) 650 mg PRN Q4HRS PRN PO PAIN / TEMP; Start 11/12/17 at 23:15 Vitamin D (Vitamin D3) 50,000 unit QTH PO Last administered on 11/14/17at 16:20 ; Start 11/14/17 at 16:00 Clopidogrel Bisulfate (Plavix) 75 mg DAILY PO Last administered on 11/16/17at 08 :47; Start 11/13/17 at 09:00 Levetiracetam (Keppra) 500 mg BID PO Last administered on 11/13/17at 08:34; Start 11/13/17 at 09:00; Stop 11/13/17 at 09:43; Status DC Levothyroxine Sodium (Synthroid) 100 mcg DAILYAC PO Last administered on at 09:17; Start 11/13/17 at 07:30; Stop 11/14/17 at 16:49; Status DC Acetaminophen/ Hydrocodone Bitart (Lortab 5/325) 1 tab PRN Q4HRS PRN PO PAIN; Start 11/12/17 at 23:15 Triamcinolone Acetonide (Kenalog) 1 jyoti PRN DAILY PRN TP ITCHING/REDNESS; Start 11/12/17 at 23:15 Multivitamins/ Minerals (I-Kevin) 1 tab DAILY PO Last administered on 11/16/17at 08:46; Start 11/13/17 at 09:00 Levetiracetam (Keppra) 500 mg BID PO Last administered on 11/16/17at 20:11; Start 11/13/17 at 10:00 Cyanocobalamin (Vitamin B-12) 1,000 mcg WEEKLY IM Last administered on at 18:23; Start 11/13/17 at 17:30 Lorazepam (Ativan) 0.5 mg BID PO ; Start 11/14/17 at 21:00; Stop 11/14/17 at 21: 00; Status DC Lorazepam (Ativan) 0.25 mg DAILY@1400 PRN PO ANXIETY / AGITATION; Start at 14:00; Stop 11/14/17 at 14:00; Status DC Lorazepam (Ativan) 0.25 mg DAILY PO Last administered on 11/16/17at 08:46; Start 11/16/17 at 09:00; Stop 11/23/17 at 09:01 Lorazepam (Ativan) 0.25 mg DAILY@1400 PO Last administered on 11/16/17at 13:25; Start 11/14/17 at 14:00; Stop 11/19/17 at 14:01 Lorazepam (Ativan) 0.5 mg QHS PO Last administered on 11/16/17at 20:04; Start at 21:00; Stop 11/17/17 at 21:01 Lorazepam (Ativan) 0.25 mg QHS PO ; Start 11/18/17 at 21:00; Stop 11/21/17 at 21: 01 Lorazepam (Ativan) 0.5 mg DAILY PO Last administered on 11/15/17at 09:43; Start 11/15/17 at 09:00; Stop 11/15/17 at 09:01; Status DC Levothyroxine Sodium (Synthroid) 100 mcg DAILY06 PO Last administered on at 06:16; Start 11/15/17 at 06:00 Quetiapine Fumarate (SEROquel) 12.5 mg DAILY PO Last administered on 11/16/17at 08:47; Start 11/15/17 at 09:00 Olanzapine (ZyPREXA ZYDIS) 1.25 mg PRN Q2HR PRN PO PSYCHOSIS Last administered on 11/15/17at 23:34; Start 11/14/17 at 18:15 Active Scripts Active Reported D3-50 (Cholecalciferol (Vitamin D3)) 50,000 Unit Capsule 50,000 Unit PO QTH Vicodin 5-300 Mg Tablet (Hydrocodone Bit/Acetaminophen) 1 Each Tablet 1 Tab PO PRN Q4HRS PRN Tylenol (Acetaminophen) 325 Mg Tablet 650 Mg PO BID Tylenol (Acetaminophen) 325 Mg Tablet 650 Mg PO PRN Q4HRS PRN Triamcinolone Acetonide 15 Gm Cream..g. 1 Gm TP PRN DAILY PRN Remeron (Mirtazapine) 15 Mg Tablet 7.5 Mg PO QHS Preservision Areds Softgel (Vit A/Vit C/Vit E/Zinc/Copper) 1 Each Capsule 1 Cap PO DAILY Lorazepam 0.5 Mg Tablet 0.5 Mg PO TID Levothyroxine Sodium 100 Mcg Tablet 100 Mcg PO DAILYAC Keppra (Levetiracetam) 500 Mg Tablet 500 Mg PO BID Clopidogrel (Clopidogrel Bisulfate) 75 Mg Tablet 75 Mg PO DAILY I have reviewed the current psychotropics carefully including drug interactions. Risk benefit ratio favors no change other than as noted in my dictated progress note. Diagnosis: Problems: (1) Dementia (2) Combative behavior (3) Anxiety disorder (4) Dementia in Alzheimer's disease with delusions (5) Dementia in Alzheimer's disease with depression (6) Dementia, vascular, with delusions (7) Dementia, vascular, with depression (8) Impulse control disorder (9) Psychosis, atypical AYSHA SEPULVEDA MD Nov 16, 2017 22:39
[2017-11-17] MEDS: LEVOTHYROXINE 100 MCG TABLET PO SCH (06:14)
[2017-11-17 06:34] VITALS: BP 123/68
[2017-11-17 08:26] LABS: BASO # 0.1 x10^3/uL (0.0-0.2); BASO % 1 % (0-3); EOS # 0.5 x10^3/uL (0.0-0.7); EOS % 5 % (0-3); HEMATOCRIT 36.6 % (39.0-53.0); HEMOGLOBIN 12.6 g/dL (13.0-17.5); LYMPH # 1.5 x10^3/uL (1.0-4.8); LYMPH % 16 % (24-48); MEAN CORPUSCULAR HEMOGLOBIN 32 pg (25-35); MEAN CORPUSCULAR HGB CONC 35 g/dL (31-37); MEAN CORPUSCULAR VOLUME 92 fL (79-100); MONO # 0.9 x10^3/uL (0.0-1.1); MONO % 10 % (0-9); NEUT # 6.2 x10^3uL (1.8-7.7); NEUT % 68 % (31-73); PLATELET COUNT 249 x10^3/uL (140-400); RED BLOOD COUNT 3.97 x10^6/uL (4.30-5.70); RED CELL DISTRIBUTION WIDTH 16.2 % (11.5-14.5); WHITE BLOOD COUNT 9.1 x10^3/uL (4.0-11.0)
[2017-11-17] MEDS: MULTIVITAMIN I-VITE TABLET. PO SCH (08:29)
[2017-11-17] MEDS: LORazepam 0.5 MG TABLET PO SCH ×3 (08:29→20:05)
[2017-11-17] MEDS: QUEtiapine 25 MG TABLET. PO SCH (08:30)
[2017-11-17] MEDS: CLOPIDOGREL BISULFATE 75 MG TABLET PO SCH (08:30)
[2017-11-17] MEDS: ACETAMINOPHEN 325 MG TABLET PO SCH ×3 (08:30→21:00)
[2017-11-17 08:44] LABS: ALBUMIN 3.4 g/dL (3.4-5.0); ALBUMIN/GLOBULIN RATIO 0.9 (1.0-1.7); GFR 70.4; POTASSIUM 3.6 mmol/L (3.5-5.1); TOTAL BILIRUBIN 0.6 mg/dL (0.2-1.0); TOTAL PROTEIN 7.1 g/dL (6.4-8.2)
[2017-11-17 16:20] VITALS: BP 98/64
[2017-11-17] MEDS: MIRTAZAPINE 15 MG TABLET PO SCH ×2 (20:03→21:00)
--- NOTE | 2017-11-17 22:26 | PDOC ---
Exam Note: Slava Note: Please also refer to the separate dictated note~for this date of service dictated separately.~Patient seen individually. Discussed the patient with Nursing staff reviewed the chart.~Reviewed interim history and current functioning. Reviewed vital signs,~Labs/ Radiology~and current medications noted below. Continue current treatment with the changes noted in the dictated addendum note Assessment: Vital Signs: Vital Signs Date Time Temp Pulse Resp B/P (MAP) Pulse Ox O2 Delivery O2 Flow Rate FiO2 11/17/17 16:20 98.0 87 16 98/64 (75) 97 11/12/17 19:57 Room Air I&O Intake and Output 11/17/17 07:00 Intake Total 480 ml Balance 480 ml Intake Oral 480 ml # Voids 1 Labs: Laboratory Tests Test 11/17/17 07:43 White Blood Count 9.1 x10^3/uL (4.0-11.0) Red Blood Count 3.97 x10^6/uL (4.30-5.70) L Hemoglobin 12.6 g/dL (13.0-17.5) L Hematocrit 36.6 % (39.0-53.0) L Mean Corpuscular Volume 92 fL (79-100) Mean Corpuscular Hemoglobin 32 pg (25-35) Mean Corpuscular Hemoglobin Concent 35 g/dL (31-37) Red Cell Distribution Width 16.2 % (11.5-14.5) H Platelet Count 249 x10^3/uL (140-400) Neutrophils (%) (Auto) 68 % (31-73) Lymphocytes (%) (Auto) 16 % (24-48) L Monocytes (%) (Auto) 10 % (0-9) H Eosinophils (%) (Auto) 5 % (0-3) H Basophils (%) (Auto) 1 % (0-3) Neutrophils # (Auto) 6.2 x10^3uL (1.8-7.7) Lymphocytes # (Auto) 1.5 x10^3/uL (1.0-4.8) Monocytes # (Auto) 0.9 x10^3/uL (0.0-1.1) Eosinophils # (Auto) 0.5 x10^3/uL (0.0-0.7) Basophils # (Auto) 0.1 x10^3/uL (0.0-0.2) Sodium Level 140 mmol/L (136-145) Potassium Level 3.6 mmol/L (3.5-5.1) Chloride Level 103 mmol/L (98-107) Carbon Dioxide Level 30 mmol/L (21-32) Anion Gap 7 (6-14) Blood Urea Nitrogen 21 mg/dL (8-26) Creatinine 1.0 mg/dL (0.7-1.3) Estimated GFR (Cockcroft-Gault) 70.4 BUN/Creatinine Ratio 21 (6-20) H Glucose Level 93 mg/dL (70-99) Calcium Level 9.0 mg/dL (8.5-10.1) Total Bilirubin 0.6 mg/dL (0.2-1.0) Aspartate Amino Transferase (AST) 28 U/L (15-37) Alanine Aminotransferase (ALT) 24 U/L (16-63) Alkaline Phosphatase 96 U/L (46-116) Total Protein 7.1 g/dL (6.4-8.2) Albumin 3.4 g/dL (3.4-5.0) Albumin/Globulin Ratio 0.9 (1.0-1.7) L Current Medications: Meds: Current Medications Acetaminophen (Tylenol) 650 mg PRN Q6HRS PRN PO PAIN / TEMP; Start 11/12/17 at 22:15; Stop 11/12/17 at 23:06; Status DC Al Hydroxide/Mg Hydroxide (Mylanta Plus Xs) 15 ml PRN AFTMEALHC PRN PO DYSPEPSIA; Start 11/12/17 at 22:15 Magnesium Hydroxide (Milk Of Magnesia) 2,400 mg PRN QHS PRN PO CONSTIPATION; Start 11/12/17 at 22:15 Lorazepam (Ativan) 0.5 mg TID PO Last administered on 11/14/17at 09:17; Start at 22:30; Stop 11/14/17 at 13:07; Status DC Mirtazapine (Remeron) 15 mg QHS PO Last administered on 11/16/17at 20:01; Start 11/12/17 at 22:30 Acetaminophen (Tylenol) 650 mg BID PO Last administered on 11/17/17at 08:30; Start 11/13/17 at 09:00 Acetaminophen (Tylenol) 650 mg PRN Q4HRS PRN PO PAIN / TEMP; Start 11/12/17 at 23:15 Vitamin D (Vitamin D3) 50,000 unit QTH PO Last administered on 11/14/17at 16:20 ; Start 11/14/17 at 16:00 Clopidogrel Bisulfate (Plavix) 75 mg DAILY PO Last administered on 11/17/17 08 :30; Start 11/13/17 at 09:00 Levetiracetam (Keppra) 500 mg BID PO Last administered on 11/13/17at 08:34; Start 11/13/17 at 09:00; Stop 11/13/17 at 09:43; Status DC Levothyroxine Sodium (Synthroid) 100 mcg DAILYAC PO Last administered on at 09:17; Start 11/13/17 at 07:30; Stop 11/14/17 at 16:49; Status DC Acetaminophen/ Hydrocodone Bitart (Lortab 5/325) 1 tab PRN Q4HRS PRN PO PAIN; Start 11/12/17 at 23:15 Triamcinolone Acetonide (Kenalog) 1 jyoti PRN DAILY PRN TP ITCHING/REDNESS; Start 11/12/17 at 23:15 Multivitamins/ Minerals (I-Kevin) 1 tab DAILY PO Last administered on 11/17/17at 08:29; Start 11/13/17 at 09:00 Levetiracetam (Keppra) 500 mg BID PO Last administered on 11/17/17at 08:30; Start 11/13/17 at 10:00 Cyanocobalamin (Vitamin B-12) 1,000 mcg WEEKLY IM Last administered on at 18:23; Start 11/13/17 at 17:30 Lorazepam (Ativan) 0.5 mg BID PO ; Start 11/14/17 at 21:00; Stop 11/14/17 at 21: 00; Status DC Lorazepam (Ativan) 0.25 mg DAILY@1400 PRN PO ANXIETY / AGITATION; Start at 14:00; Stop 11/14/17 at 14:00; Status DC Lorazepam (Ativan) 0.25 mg DAILY PO Last administered on 11/17/17at 08:29; Start 11/16/17 at 09:00; Stop 11/23/17 at 09:01 Lorazepam (Ativan) 0.25 mg DAILY@1400 PO Last administered on 11/16/17at 13:25; Start 11/14/17 at 14:00; Stop 11/19/17 at 14:01 Lorazepam (Ativan) 0.5 mg QHS PO Last administered on 11/17/17at 20:05; Start at 21:00; Stop 11/17/17 at 21:01; Status DC Lorazepam (Ativan) 0.25 mg QHS PO ; Start 11/18/17 at 21:00; Stop 11/21/17 at 21: 01 Lorazepam (Ativan) 0.5 mg DAILY PO Last administered on 11/15/17at 09:43; Start 11/15/17 at 09:00; Stop 11/15/17 at 09:01; Status DC Levothyroxine Sodium (Synthroid) 100 mcg DAILY06 PO Last administered on at 06:14; Start 11/15/17 at 06:00 Quetiapine Fumarate (SEROquel) 12.5 mg DAILY PO Last administered on 11/17/17at 08:30; Start 11/15/17 at 09:00 Olanzapine (ZyPREXA ZYDIS) 1.25 mg PRN Q2HR PRN PO PSYCHOSIS Last administered on 11/15/17at 23:34; Start 11/14/17 at 18:15 Active Scripts Active Reported D3-50 (Cholecalciferol (Vitamin D3)) 50,000 Unit Capsule 50,000 Unit PO QTH Vicodin 5-300 Mg Tablet (Hydrocodone Bit/Acetaminophen) 1 Each Tablet 1 Tab PO PRN Q4HRS PRN Tylenol (Acetaminophen) 325 Mg Tablet 650 Mg PO BID Tylenol (Acetaminophen) 325 Mg Tablet 650 Mg PO PRN Q4HRS PRN Triamcinolone Acetonide 15 Gm Cream..g. 1 Gm TP PRN DAILY PRN Remeron (Mirtazapine) 15 Mg Tablet 7.5 Mg PO QHS Preservision Areds Softgel (Vit A/Vit C/Vit E/Zinc/Copper) 1 Each Capsule 1 Cap PO DAILY Lorazepam 0.5 Mg Tablet 0.5 Mg PO TID Levothyroxine Sodium 100 Mcg Tablet 100 Mcg PO DAILYAC Keppra (Levetiracetam) 500 Mg Tablet 500 Mg PO BID Clopidogrel (Clopidogrel Bisulfate) 75 Mg Tablet 75 Mg PO DAILY I have reviewed the current psychotropics carefully including drug interactions. Risk benefit ratio favors no change other than as noted in my dictated progress note. Diagnosis: Problems: (1) Dementia (2) Combative behavior (3) Anxiety disorder (4) Dementia in Alzheimer's disease with delusions (5) Dementia in Alzheimer's disease with depression (6) Dementia, vascular, with delusions (7) Dementia, vascular, with depression (8) Impulse control disorder (9) Psychosis, atypical AYSHA SEPULVEDA MD Nov 17, 2017 22:26
--- NOTE | 2017-11-18 00:35 | PN ---
DATE: 11/15/2017 This is a late entry, 11/15/2017, covers the elements not covered in my initial note, 11/15/2017. SUBJECTIVE: I met with the patient in the evening. The patient slept 4-1/2 hours after lunch, he was anxious, restless. Received Zyprexa then was better. We are tapering the Ativan. REVIEW OF SYSTEMS: No CV, , pulmonary, eye, ENT system symptoms on review. Gait unsteady in wheelchair. Reliability poor. MENTAL STATUS EXAM: Oriented to himself. Insight, judgment, recent and remote memory, attention, concentration, fund of knowledge poor, consistent with his diagnosis. He is somewhat sedated withdrawn, less so than before. LABORATORY DATA: Reviewed. IMPRESSION: Unchanged from initial note. PLAN: Taper the Ativan. Rest unchanged from initial note. MAN Rosas SEPULVEDA MD DR: CHASE/wally JOB#: [id number] / [id number]
[2017-11-18] MEDS: LEVOTHYROXINE 100 MCG TABLET PO SCH (05:12)
[2017-11-18 06:20] VITALS: BP 165/83
[2017-11-18] MEDS: LORazepam 0.5 MG TABLET PO SCH ×3 (08:30→21:16)
[2017-11-18] MEDS: ACETAMINOPHEN 325 MG TABLET PO SCH ×2 (08:31→21:15)
[2017-11-18] MEDS: QUEtiapine 25 MG TABLET. PO SCH (08:31)
[2017-11-18] MEDS: CLOPIDOGREL BISULFATE 75 MG TABLET PO SCH (08:31)
[2017-11-18] MEDS: MULTIVITAMIN I-VITE TABLET. PO SCH (09:00)
[2017-11-18 16:20] VITALS: BP 110/75
[2017-11-18] MEDS: MIRTAZAPINE 15 MG TABLET PO SCH (21:14)
--- NOTE | 2017-11-18 21:38 | PDOC ---
Exam Note: Slava Note: Please also refer to the separate dictated note~for this date of service dictated separately.~Patient seen individually. Discussed the patient with Nursing staff reviewed the chart.~Reviewed interim history and current functioning. Reviewed vital signs,~Labs/ Radiology~and current medications noted below. Continue current treatment with the changes noted in the dictated addendum note Assessment: Vital Signs: Vital Signs Date Time Temp Pulse Resp B/P (MAP) Pulse Ox O2 Delivery O2 Flow Rate FiO2 11/18/17 16:20 98.7 84 20 110/75 (87) 98 11/12/17 19:57 Room Air I&O Intake and Output 11/18/17 07:00 Intake Total 740 ml Balance 740 ml Intake Oral 740 ml # Voids 2 Current Medications: Meds: Current Medications Acetaminophen (Tylenol) 650 mg PRN Q6HRS PRN PO PAIN / TEMP; Start 11/12/17 at 22:15; Stop 11/12/17 at 23:06; Status DC Al Hydroxide/Mg Hydroxide (Mylanta Plus Xs) 15 ml PRN AFTMEALHC PRN PO DYSPEPSIA; Start 11/12/17 at 22:15 Magnesium Hydroxide (Milk Of Magnesia) 2,400 mg PRN QHS PRN PO CONSTIPATION; Start 11/12/17 at 22:15 Lorazepam (Ativan) 0.5 mg TID PO Last administered on 11/14/17at 09:17; Start at 22:30; Stop 11/14/17 at 13:07; Status DC Mirtazapine (Remeron) 15 mg QHS PO Last administered on 11/18/17at 21:14; Start 11/12/17 at 22:30 Acetaminophen (Tylenol) 650 mg BID PO Last administered on 11/18/17at 21:15; Start 11/13/17 at 09:00 Acetaminophen (Tylenol) 650 mg PRN Q4HRS PRN PO PAIN / TEMP; Start 11/12/17 at 23:15 Vitamin D (Vitamin D3) 50,000 unit QTH PO Last administered on 11/14/17at 16:20 ; Start 11/14/17 at 16:00 Clopidogrel Bisulfate (Plavix) 75 mg DAILY PO Last administered on 11/18/17at 08 :31; Start 11/13/17 at 09:00 Levetiracetam (Keppra) 500 mg BID PO Last administered on 11/13/17at 08:34; Start 11/13/17 at 09:00; Stop 11/13/17 at 09:43; Status DC Levothyroxine Sodium (Synthroid) 100 mcg DAILYAC PO Last administered on at 09:17; Start 11/13/17 at 07:30; Stop 11/14/17 at 16:49; Status DC Acetaminophen/ Hydrocodone Bitart (Lortab 5/325) 1 tab PRN Q4HRS PRN PO PAIN; Start 11/12/17 at 23:15 Triamcinolone Acetonide (Kenalog) 1 jyoti PRN DAILY PRN TP ITCHING/REDNESS; Start 11/12/17 at 23:15 Multivitamins/ Minerals (I-Kevin) 1 tab DAILY PO Last administered on 11/17/17at 08:29; Start 11/13/17 at 09:00 Levetiracetam (Keppra) 500 mg BID PO Last administered on 11/18/17at 21:14; Start 11/13/17 at 10:00 Cyanocobalamin (Vitamin B-12) 1,000 mcg WEEKLY IM Last administered on at 18:23; Start 11/13/17 at 17:30 Lorazepam (Ativan) 0.5 mg BID PO ; Start 11/14/17 at 21:00; Stop 11/14/17 at 21: 00; Status DC Lorazepam (Ativan) 0.25 mg DAILY@1400 PRN PO ANXIETY / AGITATION; Start at 14:00; Stop 11/14/17 at 14:00; Status DC Lorazepam (Ativan) 0.25 mg DAILY PO Last administered on 11/18/17at 08:30; Start 11/16/17 at 09:00; Stop 11/23/17 at 09:01 Lorazepam (Ativan) 0.25 mg DAILY@1400 PO Last administered on 11/18/17at 13:35; Start 11/14/17 at 14:00; Stop 11/19/17 at 14:01 Lorazepam (Ativan) 0.5 mg QHS PO Last administered on 11/17/17at 20:05; Start at 21:00; Stop 11/17/17 at 21:01; Status DC Lorazepam (Ativan) 0.25 mg QHS PO Last administered on 11/18/17at 21:16; Start 11/18/17 at 21:00; Stop 11/21/17 at 21:01 Lorazepam (Ativan) 0.5 mg DAILY PO Last administered on 11/15/17at 09:43; Start 11/15/17 at 09:00; Stop 11/15/17 at 09:01; Status DC Levothyroxine Sodium (Synthroid) 100 mcg DAILY06 PO Last administered on at 05:12; Start 11/15/17 at 06:00 Quetiapine Fumarate (SEROquel) 12.5 mg DAILY PO Last administered on 11/18/17at 08:31; Start 11/15/17 at 09:00 Olanzapine (ZyPREXA ZYDIS) 1.25 mg PRN Q2HR PRN PO PSYCHOSIS Last administered on 11/15/17at 23:34; Start 11/14/17 at 18:15 Active Scripts Active Reported D3-50 (Cholecalciferol (Vitamin D3)) 50,000 Unit Capsule 50,000 Unit PO QTH Vicodin 5-300 Mg Tablet (Hydrocodone Bit/Acetaminophen) 1 Each Tablet 1 Tab PO PRN Q4HRS PRN Tylenol (Acetaminophen) 325 Mg Tablet 650 Mg PO BID Tylenol (Acetaminophen) 325 Mg Tablet 650 Mg PO PRN Q4HRS PRN Triamcinolone Acetonide 15 Gm Cream..g. 1 Gm TP PRN DAILY PRN Remeron (Mirtazapine) 15 Mg Tablet 7.5 Mg PO QHS Preservision Areds Softgel (Vit A/Vit C/Vit E/Zinc/Copper) 1 Each Capsule 1 Cap PO DAILY Lorazepam 0.5 Mg Tablet 0.5 Mg PO TID Levothyroxine Sodium 100 Mcg Tablet 100 Mcg PO DAILYAC Keppra (Levetiracetam) 500 Mg Tablet 500 Mg PO BID Clopidogrel (Clopidogrel Bisulfate) 75 Mg Tablet 75 Mg PO DAILY I have reviewed the current psychotropics carefully including drug interactions. Risk benefit ratio favors no change other than as noted in my dictated progress note. Diagnosis: Problems: (1) Dementia (2) Combative behavior (3) Anxiety disorder (4) Dementia in Alzheimer's disease with delusions (5) Dementia in Alzheimer's disease with depression (6) Dementia, vascular, with delusions (7) Dementia, vascular, with depression (8) Impulse control disorder (9) Psychosis, atypical AYSHA SEPULVEDA MD Nov 18, 2017 21:38
--- NOTE | 2017-11-19 03:31 | PN ---
DATE: 11/16/2017 This late entry for 11/16/2017 covers elements not covered in my initial note of 11/16/2017. SUBJECTIVE: I met with the patient in the evening. The patient slept 4-1/2 hours previous evening, was quite agitated, restless at night, spitting out his meds, took them later. REVIEW OF SYSTEMS: Ambulation impaired, in wheelchair. No CV, , pulmonary, eye, ENT system symptoms on review. Reliability poor. MENTAL STATUS EXAM: Oriented to himself. Insight, judgment, recent and remote memory, attention, concentration, fund of knowledge poor, consistent with his diagnosis mentioned in my initial note. IMPRESSION: Major neurocognitive disorder, Alzheimer, vascular with delusion, depression, behavioral disturbance. Rest unchanged. PLAN: Continue psychotropics mentioned in my initial note. Adjust as indicated. Ativan is being tapered. He is on Remeron, low-dose Seroquel for now and we are trying to minimize all psychotropics as much as we can. MAN Rosas SEPULVEDA MD DR: CHASE/wally JOB#: [id number] / [id number]
--- NOTE | 2017-11-19 04:55 | PN ---
DATE: 11/17/2017 PSYCHIATRIC PROGRESS NOTE This late entry 11/17/2017 covers elements not covered in my initial note 11/17/2017. SUBJECTIVE: I met with the patient in the evening. The patient slept 7 hours previous evening, somewhat sedated, confused. Ativan was held at 1400 due to sedation. Family revealed that he told the son prior to admission that everyone was dying around him. He wanted to pass off himself. This was more of an observation rather than an intent to end his life. REVIEW OF SYSTEMS: No CV, , pulmonary, eye, ENT system symptoms on review. Reliability poor. He is in a wheelchair. MENTAL STATUS EXAM: Oriented to himself. Insight, judgment, recent and remote memory, attention, concentration, fund of knowledge poor, consistent with his diagnosis mentioned in my initial note. PLAN: Continue current psychotropics, taper the Ativan until is discontinued. Maintain Seroquel. MAN Rosas SEPULVEDA MD DR: CHASE/wally JOB#: [id number] / [id number]
[2017-11-19] MEDS: LEVOTHYROXINE 100 MCG TABLET PO SCH (05:35)
[2017-11-19 06:37] VITALS: BP 111/71
[2017-11-19] MEDS: QUEtiapine 25 MG TABLET. PO SCH (08:01)
[2017-11-19] MEDS: ACETAMINOPHEN 325 MG TABLET PO SCH ×2 (08:01→19:56)
[2017-11-19] MEDS: CLOPIDOGREL BISULFATE 75 MG TABLET PO SCH (08:01)
[2017-11-19] MEDS: MULTIVITAMIN I-VITE TABLET. PO SCH (08:01)
[2017-11-19] MEDS: LORazepam 0.5 MG TABLET PO SCH ×3 (08:04→21:00)
[2017-11-19] MEDS: HYDROcodone/APAP 5/325MG 1 TAB TABLET PO PRN (13:01)
[2017-11-19] MEDS: MAGNESIUM HYDROXIDE 2,400 MG/30 ML ORAL.SUSP. PO PRN ×2 (13:06→19:55)
[2017-11-19 16:01] VITALS: BP 105/82
[2017-11-19] MEDS: MIRTAZAPINE 15 MG TABLET PO SCH (19:56)
--- NOTE | 2017-11-19 21:39 | PDOC ---
Exam Note: Slava Note: Please also refer to the separate dictated note~for this date of service dictated separately.~Patient seen individually. Discussed the patient with Nursing staff reviewed the chart.~Reviewed interim history and current functioning. Reviewed vital signs,~Labs/ Radiology~and current medications noted below. Continue current treatment with the changes noted in the dictated addendum note Assessment: Vital Signs: Vital Signs Date Time Temp Pulse Resp B/P (MAP) Pulse Ox O2 Delivery O2 Flow Rate FiO2 11/19/17 16:01 96.4 69 20 105/82 (90) 96 I&O Intake and Output 11/19/17 07:00 Intake Total 600 ml Balance 600 ml Intake Oral 600 ml # Voids 1 Current Medications: Meds: Current Medications Acetaminophen (Tylenol) 650 mg PRN Q6HRS PRN PO PAIN / TEMP; Start 11/12/17 at 22:15; Stop 11/12/17 at 23:06; Status DC Al Hydroxide/Mg Hydroxide (Mylanta Plus Xs) 15 ml PRN AFTMEALHC PRN PO DYSPEPSIA; Start 11/12/17 at 22:15 Magnesium Hydroxide (Milk Of Magnesia) 2,400 mg PRN QHS PRN PO CONSTIPATION Last administered on 11/19/17at 19:55; Start 11/12/17 at 22:15 Lorazepam (Ativan) 0.5 mg TID PO Last administered on 11/14/17at 09:17; Start at 22:30; Stop 11/14/17 at 13:07; Status DC Mirtazapine (Remeron) 15 mg QHS PO Last administered on 11/19/17 19:56; Start 11/12/17 at 22:30 Acetaminophen (Tylenol) 650 mg BID PO Last administered on 11/19/17 19:56; Start 11/13/17 at 09:00 Acetaminophen (Tylenol) 650 mg PRN Q4HRS PRN PO PAIN / TEMP; Start 11/12/17 at 23:15 Vitamin D (Vitamin D3) 50,000 unit QTH PO Last administered on 11/14/17at 16:20 ; Start 11/14/17 at 16:00 Clopidogrel Bisulfate (Plavix) 75 mg DAILY PO Last administered on 11/19/17at 08: 01; Start 11/13/17 at 09:00 Levetiracetam (Keppra) 500 mg BID PO Last administered on 11/13/17at 08:34; Start 11/13/17 at 09:00; Stop 11/13/17 at 09:43; Status DC Levothyroxine Sodium (Synthroid) 100 mcg DAILYAC PO Last administered on at 09:17; Start 11/13/17 at 07:30; Stop 11/14/17 at 16:49; Status DC Acetaminophen/ Hydrocodone Bitart (Lortab 5/325) 1 tab PRN Q4HRS PRN PO PAIN Last administered on 11/19/17 13:01; Start 11/12/17 at 23:15 Triamcinolone Acetonide (Kenalog) 1 jyoti PRN DAILY PRN TP ITCHING/REDNESS; Start 11/12/17 at 23:15 Multivitamins/ Minerals (I-Kevin) 1 tab DAILY PO Last administered on 11/19/17at 08:01; Start 11/13/17 at 09:00 Levetiracetam (Keppra) 500 mg BID PO Last administered on 11/19/17at 19:56; Start 11/13/17 at 10:00 Cyanocobalamin (Vitamin B-12) 1,000 mcg WEEKLY IM Last administered on at 18:23; Start 11/13/17 at 17:30 Lorazepam (Ativan) 0.5 mg BID PO ; Start 11/14/17 at 21:00; Stop 11/14/17 at 21: 00; Status DC Lorazepam (Ativan) 0.25 mg DAILY@1400 PRN PO ANXIETY / AGITATION; Start at 14:00; Stop 11/14/17 at 14:00; Status DC Lorazepam (Ativan) 0.25 mg DAILY PO Last administered on 11/19/17at 08:04; Start 11/16/17 at 09:00; Stop 11/23/17 at 09:01 Lorazepam (Ativan) 0.25 mg DAILY@1400 PO Last administered on 11/19/17at 13:00; Start 11/14/17 at 14:00; Stop 11/19/17 at 14:02; Status DC Lorazepam (Ativan) 0.5 mg QHS PO Last administered on 11/17/17at 20:05; Start at 21:00; Stop 11/17/17 at 21:01; Status DC Lorazepam (Ativan) 0.25 mg QHS PO Last administered on 11/18/17at 21:16; Start 11/18/17 at 21:00; Stop 11/21/17 at 21:01 Lorazepam (Ativan) 0.5 mg DAILY PO Last administered on 11/15/17at 09:43; Start 11/15/17 at 09:00; Stop 11/15/17 at 09:01; Status DC Levothyroxine Sodium (Synthroid) 100 mcg DAILY06 PO Last administered on at 05:35; Start 11/15/17 at 06:00 Quetiapine Fumarate (SEROquel) 12.5 mg DAILY PO Last administered on 11/19/17at 08:01; Start 11/15/17 at 09:00 Olanzapine (ZyPREXA ZYDIS) 1.25 mg PRN Q2HR PRN PO PSYCHOSIS Last administered on 11/15/17at 23:34; Start 11/14/17 at 18:15 Quetiapine Fumarate (SEROquel) 6.25 mg DAILY@1300 PO ; Start 11/20/17 at 13:00 Active Scripts Active Reported D3-50 (Cholecalciferol (Vitamin D3)) 50,000 Unit Capsule 50,000 Unit PO QTH Vicodin 5-300 Mg Tablet (Hydrocodone Bit/Acetaminophen) 1 Each Tablet 1 Tab PO PRN Q4HRS PRN Tylenol (Acetaminophen) 325 Mg Tablet 650 Mg PO BID Tylenol (Acetaminophen) 325 Mg Tablet 650 Mg PO PRN Q4HRS PRN Triamcinolone Acetonide 15 Gm Cream..g. 1 Gm TP PRN DAILY PRN Remeron (Mirtazapine) 15 Mg Tablet 7.5 Mg PO QHS Preservision Areds Softgel (Vit A/Vit C/Vit E/Zinc/Copper) 1 Each Capsule 1 Cap PO DAILY Lorazepam 0.5 Mg Tablet 0.5 Mg PO TID Levothyroxine Sodium 100 Mcg Tablet 100 Mcg PO DAILYAC Keppra (Levetiracetam) 500 Mg Tablet 500 Mg PO BID Clopidogrel (Clopidogrel Bisulfate) 75 Mg Tablet 75 Mg PO DAILY I have reviewed the current psychotropics carefully including drug interactions. Risk benefit ratio favors no change other than as noted in my dictated progress note. 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
--- NOTE | 2017-11-20 03:06 | PN ---
DATE: 11/18/2017 PSYCHIATRIC PROGRESS NOTE This is a late entry for 11/18/2017, covers elements not covered in my initial note of 11/18/2017. SUBJECTIVE: I met with the patient in the evening, the patient slept 9-1/4 hours previous evening. He is quite sedated at night and at bedtime medications were held because BP was low as well. Staff are feeding him. REVIEW OF SYSTEMS: Ambulation impaired, in wheelchair, poor vision due to macular degeneration. No CV, , pulmonary, ENT system symptoms on review. Reliability poor. MENTAL STATUS EXAM: Oriented to himself. Insight, judgment, recent and remote memory, attention, concentration, fund of knowledge poor, consistent with his diagnosis mentioned in my initial note. PLAN: Continue to taper the Ativan. Continue rest unchanged. MAN Rosas SEPULVEDA MD DR: CHASE/wally JOB#: [id number] / [id number]
[2017-11-20] MEDS: LEVOTHYROXINE 100 MCG TABLET PO SCH ×2 (05:24→08:48)
[2017-11-20 06:28] VITALS: BP 108/65
[2017-11-20] MEDS: MULTIVITAMIN I-VITE TABLET. PO SCH (08:47)
[2017-11-20] MEDS: CLOPIDOGREL BISULFATE 75 MG TABLET PO SCH (08:48)
[2017-11-20] MEDS: QUEtiapine 25 MG TABLET. PO SCH ×2 (08:48→13:56)
[2017-11-20] MEDS: ACETAMINOPHEN 325 MG TABLET PO SCH ×2 (08:48→20:28)
[2017-11-20] MEDS: CYANOCOBALAMIN (VITAMIN B-12) 1,000 MCG/ML VIAL IM SCH (08:51)
[2017-11-20] MEDS: LORazepam 0.5 MG TABLET PO SCH ×2 (08:52→20:33)
--- NOTE | 2017-11-20 13:50 | RAD ---
KUB, 11/20/2017: HISTORY: No bowel sounds There is gas and a moderate amount of stool scattered throughout the colon in a nonspecific pattern. There is no evidence of organomegaly. Extensive aortoiliac calcific plaquing is present. There is a mild lumbar scoliosis with moderate multilevel degenerative change. IMPRESSION: No acute abdominal abnormality is detected. Electronically signed by: Byron Peoples MD (11/20/2017 1:47 PM) [facility]
[2017-11-20 16:58] VITALS: BP 95/57
[2017-11-20] MEDS: MIRTAZAPINE 15 MG TABLET PO SCH (20:28)
[2017-11-20] MEDS: MELATONIN 3 MG TABLET PO SCH (20:33)
[2017-11-20] MEDS: BISACODYL 10 MG SUPP.RECT PR PRN (20:38)
--- NOTE | 2017-11-20 21:02 | PDOC ---
Exam Note: Slava Note: Please also refer to the separate dictated note~for this date of service dictated separately.~Patient seen individually. Discussed the patient with Nursing staff reviewed the chart.~Reviewed interim history and current functioning. Reviewed vital signs,~Labs/ Radiology~and current medications noted below. Continue current treatment with the changes noted in the dictated addendum note Assessment: Vital Signs: Vital Signs Date Time Temp Pulse Resp B/P (MAP) Pulse Ox O2 Delivery O2 Flow Rate FiO2 11/20/17 16:58 97.5 80 18 95/57 (70) 95 I&O Intake and Output 11/20/17 07:00 Intake Total 480 ml Balance 480 ml Intake Oral 480 ml # Voids 1 Current Medications: Meds: Current Medications Acetaminophen (Tylenol) 650 mg PRN Q6HRS PRN PO PAIN / TEMP; Start 11/12/17 at 22:15; Stop 11/12/17 at 23:06; Status DC Al Hydroxide/Mg Hydroxide (Mylanta Plus Xs) 15 ml PRN AFTMEALHC PRN PO DYSPEPSIA; Start 11/12/17 at 22:15 Magnesium Hydroxide (Milk Of Magnesia) 2,400 mg PRN QHS PRN PO CONSTIPATION Last administered on 11/19/17at 19:55; Start 11/12/17 at 22:15 Lorazepam (Ativan) 0.5 mg TID PO Last administered on 11/14/17at 09:17; Start at 22:30; Stop 11/14/17 at 13:07; Status DC Mirtazapine (Remeron) 15 mg QHS PO Last administered on 11/20/17 20:28; Start 11/12/17 at 22:30 Acetaminophen (Tylenol) 650 mg BID PO Last administered on 11/20/17 20:28; Start 11/13/17 at 09:00 Acetaminophen (Tylenol) 650 mg PRN Q4HRS PRN PO PAIN / TEMP; Start 11/12/17 at 23:15 Vitamin D (Vitamin D3) 50,000 unit QTH PO Last administered on 11/14/17at 16:20 ; Start 11/14/17 at 16:00 Clopidogrel Bisulfate (Plavix) 75 mg DAILY PO Last administered on 11/20/17at 08: 48; Start 11/13/17 at 09:00 Levetiracetam (Keppra) 500 mg BID PO Last administered on 11/13/17at 08:34; Start 11/13/17 at 09:00; Stop 11/13/17 at 09:43; Status DC Levothyroxine Sodium (Synthroid) 100 mcg DAILYAC PO Last administered on at 09:17; Start 11/13/17 at 07:30; Stop 11/14/17 at 16:49; Status DC Acetaminophen/ Hydrocodone Bitart (Lortab 5/325) 1 tab PRN Q4HRS PRN PO PAIN Last administered on 11/19/17 13:01; Start 11/12/17 at 23:15 Triamcinolone Acetonide (Kenalog) 1 jyoti PRN DAILY PRN TP ITCHING/REDNESS; Start 11/12/17 at 23:15 Multivitamins/ Minerals (I-Kevin) 1 tab DAILY PO Last administered on 11/20/17at 08:47; Start 11/13/17 at 09:00 Levetiracetam (Keppra) 500 mg BID PO Last administered on 11/20/17at 20:29; Start 11/13/17 at 10:00 Cyanocobalamin (Vitamin B-12) 1,000 mcg WEEKLY IM Last administered on at 08:51; Start 11/13/17 at 17:30 Lorazepam (Ativan) 0.5 mg BID PO ; Start 11/14/17 at 21:00; Stop 11/14/17 at 21: 00; Status DC Lorazepam (Ativan) 0.25 mg DAILY@1400 PRN PO ANXIETY / AGITATION; Start at 14:00; Stop 11/14/17 at 14:00; Status DC Lorazepam (Ativan) 0.25 mg DAILY PO Last administered on 11/20/17at 08:52; Start 11/16/17 at 09:00; Stop 11/23/17 at 09:01 Lorazepam (Ativan) 0.25 mg DAILY@1400 PO Last administered on 11/19/17at 13:00; Start 11/14/17 at 14:00; Stop 11/19/17 at 14:02; Status DC Lorazepam (Ativan) 0.5 mg QHS PO Last administered on 11/17/17 20:05; Start at 21:00; Stop 11/17/17 at 21:01; Status DC Lorazepam (Ativan) 0.25 mg QHS PO Last administered on 11/20/17 20:33; Start at 21:00; Stop 11/21/17 at 21:01 Lorazepam (Ativan) 0.5 mg DAILY PO Last administered on 11/15/17 09:43; Start 11/15/17 at 09:00; Stop 11/15/17 at 09:01; Status DC Levothyroxine Sodium (Synthroid) 100 mcg DAILY06 PO Last administered on 05:35; Start 11/15/17 at 06:00 Quetiapine Fumarate (SEROquel) 12.5 mg DAILY PO Last administered on 11/20/17 08:48; Start 11/15/17 at 09:00 Olanzapine (ZyPREXA ZYDIS) 1.25 mg PRN Q2HR PRN PO PSYCHOSIS Last administered on 11/15/17 23:34; Start 11/14/17 at 18:15 Quetiapine Fumarate (SEROquel) 6.25 mg DAILY@1300 PO Last administered on 13:56; Start 11/20/17 at 13:00 Bisacodyl (Dulcolax Supp) 10 mg PRN DAILY PRN [place] CONSTIPATION Last administered on 11/20/17 20:38; Start 11/20/17 at 19:15 Melatonin 3 mg HS PO Last administered on 11/20/17 20:33; Start 11/20/17 at 21: 00 Active Scripts Active Reported D3-50 (Cholecalciferol (Vitamin D3)) 50,000 Unit Capsule 50,000 Unit PO QTH Vicodin 5-300 Mg Tablet (Hydrocodone Bit/Acetaminophen) 1 Each Tablet 1 Tab PO PRN Q4HRS PRN Tylenol (Acetaminophen) 325 Mg Tablet 650 Mg PO BID Tylenol (Acetaminophen) 325 Mg Tablet 650 Mg PO PRN Q4HRS PRN Triamcinolone Acetonide 15 Gm Cream..g. 1 Gm TP PRN DAILY PRN Remeron (Mirtazapine) 15 Mg Tablet 7.5 Mg PO QHS Preservision Areds Softgel (Vit A/Vit C/Vit E/Zinc/Copper) 1 Each Capsule 1 Cap PO DAILY Lorazepam 0.5 Mg Tablet 0.5 Mg PO TID Levothyroxine Sodium 100 Mcg Tablet 100 Mcg PO DAILYAC Keppra (Levetiracetam) 500 Mg Tablet 500 Mg PO BID Clopidogrel (Clopidogrel Bisulfate) 75 Mg Tablet 75 Mg PO DAILY I have reviewed the current psychotropics carefully including drug interactions. Risk benefit ratio favors no change other than as noted in my dictated progress note. Diagnosis: Problems: (1) Dementia (2) Combative behavior (3) Anxiety disorder (4) Dementia in Alzheimer's disease with delusions (5) Dementia in Alzheimer's disease with depression (6) Dementia, vascular, with delusions (7) Dementia, vascular, with depression (8) Impulse control disorder (9) Psychosis, atypical AYSHA SEPULVEDA MD November 20, 2017 21:02
--- NOTE | 2017-11-20 23:31 | PN ---
DATE: 11/19/2017 This is a late entry of 11/19/2017 covers elements not covered in my initial note of 11/19/2017. SUBJECTIVE: I met with the patient in the evening. The patient slept 6-1/2 hours, somewhat restless in his chair, talked to his son, was a little calmer after this. REVIEW OF SYSTEMS: Ambulation impaired, in his wheelchair, poor vision. No CV, , pulmonary, eye system symptoms on review other than above. Reliability poor. MENTAL STATUS EXAM: Oriented to himself. Insight, judgment, recent and remote memory, attention, concentration, fund of knowledge poor, consistent with his diagnosis mentioned in my initial note. IMPRESSION: Major neurocognitive disorder, Alzheimer, vascular with delusion, depression, behavioral disturbance. PLAN: Increase Seroquel from 12.5 mg daily to 12.5 mg in the morning and 6.25 mg at 01:00 p.m. Rest unchanged. Taper the Ativan. MAN Rosas SEPULVEDA MD DR: CHASE/wally JOB#: [id number] / [id number]
[2017-11-21 05:43] VITALS: BP 134/59
[2017-11-21] MEDS: ACETAMINOPHEN 325 MG TABLET PO SCH ×2 (09:21→20:05)
[2017-11-21] MEDS: QUEtiapine 25 MG TABLET. PO SCH ×2 (09:21→12:22)
[2017-11-21] MEDS: MULTIVITAMIN I-VITE TABLET. PO SCH (09:21)
[2017-11-21] MEDS: CLOPIDOGREL BISULFATE 75 MG TABLET PO SCH (09:21)
[2017-11-21] MEDS: LEVOTHYROXINE 100 MCG TABLET PO SCH (09:21)
[2017-11-21] MEDS: LORazepam 0.5 MG TABLET PO SCH ×2 (09:24→20:07)
[2017-11-21] MEDS: CHOLECALCIFEROL (VITAMIN D3) 50,000 UNIT CAPSULE PO SCH (16:23)
[2017-11-21 16:29] VITALS: BP 121/74
[2017-11-21] MEDS: MELATONIN 3 MG TABLET PO SCH (20:04)
[2017-11-21] MEDS: MIRTAZAPINE 15 MG TABLET PO SCH (20:05)
--- NOTE | 2017-11-21 21:06 | PDOC ---
Exam Note: Slava Note: Please also refer to the separate dictated note~for this date of service dictated separately.~Patient seen individually. Discussed the patient with Nursing staff reviewed the chart.~Reviewed interim history and current functioning. Reviewed vital signs,~Labs/ Radiology~and current medications noted below. Continue current treatment with the changes noted in the dictated addendum note Assessment: Vital Signs: Vital Signs Date Time Temp Pulse Resp B/P (MAP) Pulse Ox O2 Delivery O2 Flow Rate FiO2 11/21/17 16:29 97.8 105 20 121/74 (90) 94 I&O Intake and Output 11/21/17 07:00 Intake Total 270 ml Balance 270 ml Intake Oral 270 ml # Voids 2 # Bowel Movements 1 Current Medications: Meds: Current Medications Acetaminophen (Tylenol) 650 mg PRN Q6HRS PRN PO PAIN / TEMP; Start 11/12/17 at 22:15; Stop 11/12/17 at 23:06; Status DC Al Hydroxide/Mg Hydroxide (Mylanta Plus Xs) 15 ml PRN AFTMEALHC PRN PO DYSPEPSIA; Start 11/12/17 at 22:15 Magnesium Hydroxide (Milk Of Magnesia) 2,400 mg PRN QHS PRN PO CONSTIPATION Last administered on 11/19/17at 19:55; Start 11/12/17 at 22:15 Lorazepam (Ativan) 0.5 mg TID PO Last administered on 11/14/17at 09:17; Start at 22:30; Stop 11/14/17 at 13:07; Status DC Mirtazapine (Remeron) 15 mg QHS PO Last administered on 11/21/17 20:05; Start 11/12/17 at 22:30 Acetaminophen (Tylenol) 650 mg BID PO Last administered on 11/21/17 20:05; Start 11/13/17 at 09:00 Acetaminophen (Tylenol) 650 mg PRN Q4HRS PRN PO PAIN / TEMP; Start 11/12/17 at 23:15 Vitamin D (Vitamin D3) 50,000 unit QTH PO Last administered on 11/21/17at 16:23; Start 11/14/17 at 16:00 Clopidogrel Bisulfate (Plavix) 75 mg DAILY PO Last administered on 11/21/17at 09: 21; Start 11/13/17 at 09:00 Levetiracetam (Keppra) 500 mg BID PO Last administered on 11/13/17at 08:34; Start 11/13/17 at 09:00; Stop 11/13/17 at 09:43; Status DC Levothyroxine Sodium (Synthroid) 100 mcg DAILYAC PO Last administered on at 09:17; Start 11/13/17 at 07:30; Stop 11/14/17 at 16:49; Status DC Acetaminophen/ Hydrocodone Bitart (Lortab 5/325) 1 tab PRN Q4HRS PRN PO PAIN Last administered on 11/19/17at 13:01; Start 11/12/17 at 23:15 Triamcinolone Acetonide (Kenalog) 1 jyoti PRN DAILY PRN TP ITCHING/REDNESS; Start 11/12/17 at 23:15 Multivitamins/ Minerals (I-Kevin) 1 tab DAILY PO Last administered on 11/21/17 09:21; Start 11/13/17 at 09:00 Levetiracetam (Keppra) 500 mg BID PO Last administered on 11/21/17at 20:05; Start 11/13/17 at 10:00 Cyanocobalamin (Vitamin B-12) 1,000 mcg WEEKLY IM Last administered on at 08:51; Start 11/13/17 at 17:30 Lorazepam (Ativan) 0.5 mg BID PO ; Start 11/14/17 at 21:00; Stop 11/14/17 at 21: 00; Status DC Lorazepam (Ativan) 0.25 mg DAILY@1400 PRN PO ANXIETY / AGITATION; Start at 14:00; Stop 11/14/17 at 14:00; Status DC Lorazepam (Ativan) 0.25 mg DAILY PO Last administered on 11/21/17 09:24; Start 11/16/17 at 09:00; Stop 11/23/17 at 09:01 Lorazepam (Ativan) 0.25 mg DAILY@1400 PO Last administered on 11/19/17at 13:00; Start 11/14/17 at 14:00; Stop 11/19/17 at 14:02; Status DC Lorazepam (Ativan) 0.5 mg QHS PO Last administered on 11/17/17 20:05; Start at 21:00; Stop 11/17/17 at 21:01; Status DC Lorazepam (Ativan) 0.25 mg QHS PO Last administered on 11/21/17 20:07; Start at 21:00; Stop 11/21/17 at 21:01; Status DC Lorazepam (Ativan) 0.5 mg DAILY PO Last administered on 11/15/17 09:43; Start 11/15/17 at 09:00; Stop 11/15/17 at 09:01; Status DC Levothyroxine Sodium (Synthroid) 100 mcg DAILY06 PO Last administered on 09:21; Start 11/15/17 at 06:00 Quetiapine Fumarate (SEROquel) 12.5 mg DAILY PO Last administered on 11/21/17 09:21; Start 11/15/17 at 09:00 Olanzapine (ZyPREXA ZYDIS) 1.25 mg PRN Q2HR PRN PO PSYCHOSIS Last administered on 11/21/17 17:29; Start 11/14/17 at 18:15 Quetiapine Fumarate (SEROquel) 6.25 mg DAILY@1300 PO Last administered on 12:22; Start 11/20/17 at 13:00 Bisacodyl (Dulcolax Supp) 10 mg PRN DAILY PRN [place] CONSTIPATION Last administered on 11/20/17 20:38; Start 11/20/17 at 19:15 Melatonin 3 mg HS PO Last administered on 11/21/17 20:04; Start 11/20/17 at 21: 00 Active Scripts Active Reported D3-50 (Cholecalciferol (Vitamin D3)) 50,000 Unit Capsule 50,000 Unit PO QTH Vicodin 5-300 Mg Tablet (Hydrocodone Bit/Acetaminophen) 1 Each Tablet 1 Tab PO PRN Q4HRS PRN Tylenol (Acetaminophen) 325 Mg Tablet 650 Mg PO BID Tylenol (Acetaminophen) 325 Mg Tablet 650 Mg PO PRN Q4HRS PRN Triamcinolone Acetonide 15 Gm Cream..g. 1 Gm TP PRN DAILY PRN Remeron (Mirtazapine) 15 Mg Tablet 7.5 Mg PO QHS Preservision Areds Softgel (Vit A/Vit C/Vit E/Zinc/Copper) 1 Each Capsule 1 Cap PO DAILY Lorazepam 0.5 Mg Tablet 0.5 Mg PO TID Levothyroxine Sodium 100 Mcg Tablet 100 Mcg PO DAILYAC Keppra (Levetiracetam) 500 Mg Tablet 500 Mg PO BID Clopidogrel (Clopidogrel Bisulfate) 75 Mg Tablet 75 Mg PO DAILY I have reviewed the current psychotropics carefully including drug interactions. Risk benefit ratio favors no change other than as noted in my dictated progress note. Diagnosis: Problems: (1) Dementia (2) Combative behavior (3) Anxiety disorder (4) Dementia in Alzheimer's disease with delusions (5) Dementia in Alzheimer's disease with depression (6) Dementia, vascular, with delusions (7) Dementia, vascular, with depression (8) Impulse control disorder (9) Psychosis, atypical AYSHA SEPULVEDA MD November 21, 2017 21:06
[2017-11-22 06:02] VITALS: BP 114/66
[2017-11-22] MEDS: LEVOTHYROXINE 100 MCG TABLET PO SCH (06:07)
[2017-11-22] MEDS: MULTIVITAMIN I-VITE TABLET. PO SCH (08:41)
[2017-11-22] MEDS: ACETAMINOPHEN 325 MG TABLET PO SCH ×2 (08:41→20:04)
[2017-11-22] MEDS: CLOPIDOGREL BISULFATE 75 MG TABLET PO SCH (08:41)
[2017-11-22] MEDS: QUEtiapine 25 MG TABLET. PO SCH ×2 (08:42→12:50)
[2017-11-22] MEDS: LORazepam 0.5 MG TABLET PO SCH (08:44)
[2017-11-22 15:59] VITALS: BP 93/50
[2017-11-22] MEDS: MELATONIN 3 MG TABLET PO SCH (20:03)
[2017-11-22] MEDS: MIRTAZAPINE 15 MG TABLET PO SCH (20:04)
[2017-11-22] MEDS: traZODone 50 MG TABLET. PO PRN ×2 (20:05→21:03)
--- NOTE | 2017-11-22 21:10 | PDOC ---
Exam Note: Slava Note: Please also refer to the separate dictated note~for this date of service dictated separately.~Patient seen individually. Discussed the patient with Nursing staff reviewed the chart.~Reviewed interim history and current functioning. Reviewed vital signs,~Labs/ Radiology~and current medications noted below. Continue current treatment with the changes noted in the dictated addendum note Assessment: Vital Signs: Vital Signs Date Time Temp Pulse Resp B/P (MAP) Pulse Ox O2 Delivery O2 Flow Rate FiO2 11/22/17 15:59 97.1 97 16 93/50 (64) 92 I&O Intake and Output 11/22/17 07:00 Intake Total 240 ml Balance 240 ml Intake Oral 240 ml Current Medications: Meds: Current Medications Acetaminophen (Tylenol) 650 mg PRN Q6HRS PRN PO PAIN / TEMP; Start 11/12/17 at 22:15; Stop 11/12/17 at 23:06; Status DC Al Hydroxide/Mg Hydroxide (Mylanta Plus Xs) 15 ml PRN AFTMEALHC PRN PO DYSPEPSIA; Start 11/12/17 at 22:15 Magnesium Hydroxide (Milk Of Magnesia) 2,400 mg PRN QHS PRN PO CONSTIPATION Last administered on 11/19/17at 19:55; Start 11/12/17 at 22:15 Lorazepam (Ativan) 0.5 mg TID PO Last administered on 11/14/17at 09:17; Start at 22:30; Stop 11/14/17 at 13:07; Status DC Mirtazapine (Remeron) 15 mg QHS PO Last administered on 11/22/17 20:04; Start 11/12/17 at 22:30 Acetaminophen (Tylenol) 650 mg BID PO Last administered on 11/22/17 20:04; Start 11/13/17 at 09:00 Acetaminophen (Tylenol) 650 mg PRN Q4HRS PRN PO PAIN / TEMP; Start 11/12/17 at 23:15 Vitamin D (Vitamin D3) 50,000 unit QTH PO Last administered on 11/21/17 16:23; Start 11/14/17 at 16:00 Clopidogrel Bisulfate (Plavix) 75 mg DAILY PO Last administered on 11/22/17at 08: 41; Start 11/13/17 at 09:00 Levetiracetam (Keppra) 500 mg BID PO Last administered on 11/13/17 08:34; Start 11/13/17 at 09:00; Stop 11/13/17 at 09:43; Status DC Levothyroxine Sodium (Synthroid) 100 mcg DAILYAC PO Last administered on at 09:17; Start 11/13/17 at 07:30; Stop 11/14/17 at 16:49; Status DC Acetaminophen/ Hydrocodone Bitart (Lortab 5/325) 1 tab PRN Q4HRS PRN PO PAIN Last administered on 11/19/17at 13:01; Start 11/12/17 at 23:15 Triamcinolone Acetonide (Kenalog) 1 jyoti PRN DAILY PRN TP ITCHING/REDNESS; Start 11/12/17 at 23:15 Multivitamins/ Minerals (I-Kevin) 1 tab DAILY PO Last administered on 11/22/17at 08:41; Start 11/13/17 at 09:00 Levetiracetam (Keppra) 500 mg BID PO Last administered on 11/22/17at 20:04; Start 11/13/17 at 10:00 Cyanocobalamin (Vitamin B-12) 1,000 mcg WEEKLY IM Last administered on at 08:51; Start 11/13/17 at 17:30 Lorazepam (Ativan) 0.5 mg BID PO ; Start 11/14/17 at 21:00; Stop 11/14/17 at 21: 00; Status DC Lorazepam (Ativan) 0.25 mg DAILY@1400 PRN PO ANXIETY / AGITATION; Start at 14:00; Stop 11/14/17 at 14:00; Status DC Lorazepam (Ativan) 0.25 mg DAILY PO Last administered on 11/22/17 08:44; Start 11/16/17 at 09:00; Stop 11/23/17 at 09:01 Lorazepam (Ativan) 0.25 mg DAILY@1400 PO Last administered on 11/19/17at 13:00; Start 11/14/17 at 14:00; Stop 11/19/17 at 14:02; Status DC Lorazepam (Ativan) 0.5 mg QHS PO Last administered on 11/17/17at 20:05; Start at 21:00; Stop 11/17/17 at 21:01; Status DC Lorazepam (Ativan) 0.25 mg QHS PO Last administered on 11/21/17 20:07; Start at 21:00; Stop 11/21/17 at 21:01; Status DC Lorazepam (Ativan) 0.5 mg DAILY PO Last administered on 11/15/17 09:43; Start 11/15/17 at 09:00; Stop 11/15/17 at 09:01; Status DC Levothyroxine Sodium (Synthroid) 100 mcg DAILY06 PO Last administered on 06:07; Start 11/15/17 at 06:00 Quetiapine Fumarate (SEROquel) 12.5 mg DAILY PO Last administered on 11/22/17 08:42; Start 11/15/17 at 09:00 Olanzapine (ZyPREXA ZYDIS) 1.25 mg PRN Q2HR PRN PO PSYCHOSIS Last administered on 11/22/17 02:49; Start 11/14/17 at 18:15 Quetiapine Fumarate (SEROquel) 6.25 mg DAILY@1300 PO Last administered on 12:50; Start 11/20/17 at 13:00 Bisacodyl (Dulcolax Supp) 10 mg PRN DAILY PRN [place] CONSTIPATION Last administered on 11/20/17 20:38; Start 11/20/17 at 19:15 Melatonin 3 mg HS PO Last administered on 11/22/17 20:03; Start 11/20/17 at 21: 00 Trazodone HCl (Desyrel) 25 mg PRN QHS PRN PO INSOMNIA, MAY REPEAT X1 Last administered on 11/22/17 21:03; Start 11/22/17 at 18:45 Active Scripts Active Reported D3-50 (Cholecalciferol (Vitamin D3)) 50,000 Unit Capsule 50,000 Unit PO QTH Vicodin 5-300 Mg Tablet (Hydrocodone Bit/Acetaminophen) 1 Each Tablet 1 Tab PO PRN Q4HRS PRN Tylenol (Acetaminophen) 325 Mg Tablet 650 Mg PO BID Tylenol (Acetaminophen) 325 Mg Tablet 650 Mg PO PRN Q4HRS PRN Triamcinolone Acetonide 15 Gm Cream..g. 1 Gm TP PRN DAILY PRN Remeron (Mirtazapine) 15 Mg Tablet 7.5 Mg PO QHS Preservision Areds Softgel (Vit A/Vit C/Vit E/Zinc/Copper) 1 Each Capsule 1 Cap PO DAILY Lorazepam 0.5 Mg Tablet 0.5 Mg PO TID Levothyroxine Sodium 100 Mcg Tablet 100 Mcg PO DAILYAC Keppra (Levetiracetam) 500 Mg Tablet 500 Mg PO BID Clopidogrel (Clopidogrel Bisulfate) 75 Mg Tablet 75 Mg PO DAILY I have reviewed the current psychotropics carefully including drug interactions. Risk benefit ratio favors no change other than as noted in my dictated progress note. Diagnosis: Problems: (1) Dementia (2) Combative behavior (3) Anxiety disorder (4) Dementia in Alzheimer's disease with delusions (5) Dementia in Alzheimer's disease with depression (6) Dementia, vascular, with delusions (7) Dementia, vascular, with depression (8) Impulse control disorder (9) Psychosis, atypical AYSHA SEPULVEDA MD November 22, 2017 21:10
--- NOTE | 2017-11-23 05:00 | PN ---
DATE: 11/20/2017 PSYCHIATRIC PROGRESS NOTE This late entry 11/20/2017 covers elements not covered in my initial note 11/20/2017. SUBJECTIVE: I met with the patient in the evening. The patient slept just 1-1/2 hours previous evening and we will start melatonin 3 mg at bedtime. Continue Remeron 7.5 mg at bedtime. Staff have to feed him his meals. REVIEW OF SYSTEMS: Ambulation impaired, in wheelchair. No CV, , pulmonary, eye system symptoms on review. Reliability poor. MENTAL STATUS EXAM: Oriented to himself. Insight, judgment, recent and remote memory, attention, concentration, fund of knowledge poor, consistent with his diagnosis mentioned in my initial note. PLAN: Continue current psychotropics with changes noted above. MAN Rosas SEPULVEDA MD DR: CHASE/wally JOB#: [id number] / [id number]
[2017-11-23] MEDS: LEVOTHYROXINE 100 MCG TABLET PO SCH (05:11)
[2017-11-23 06:26] VITALS: BP 113/65
[2017-11-23] MEDS: MULTIVITAMIN I-VITE TABLET. PO SCH (08:44)
[2017-11-23] MEDS: CLOPIDOGREL BISULFATE 75 MG TABLET PO SCH (08:44)
[2017-11-23] MEDS: QUEtiapine 25 MG TABLET. PO SCH ×2 (08:45→12:12)
[2017-11-23] MEDS: ACETAMINOPHEN 325 MG TABLET PO SCH ×2 (08:45→20:02)
[2017-11-23] MEDS: LORazepam 0.5 MG TABLET PO SCH (08:50)
[2017-11-23 17:00] VITALS: BP 121/93
--- NOTE | 2017-11-23 18:04 | PN ---
DATE: 11/21/2017 This is a late entry 11/21, covers elements not covered in my initial note. SUBJECTIVE: I met with the patient in the evening, staffed at a treatment team meeting with the entire team in the morning. His son, Celestino was to attend. We attempted to contact Celestino, but he was unavailable. The patient slept 3 hours previous evening. Appetite is 50%. He was better in the morning. In the evening, he was somewhat agitated, then quiet at times. Attempted to put himself on the floor. Ativan is being tapered. REVIEW OF SYSTEMS: Ambulation impaired, in wheelchair. No CV, , pulmonary, eye system symptoms on review. MENTAL STATUS EXAM: Oriented to himself. Insight, judgment, recent and remote memory, attention, concentration, fund of knowledge poor, consistent with his diagnosis mentioned in my initial note. PLAN: Continue to taper and stop the Ativan on 11/24. Rest continue unchanged per initial note. MAN Rosas SEPULVEDA MD DR: CHASE/wally JOB#: [id number] / [id number]
[2017-11-23] MEDS: MELATONIN 3 MG TABLET PO SCH (20:02)
[2017-11-23] MEDS: MIRTAZAPINE 15 MG TABLET PO SCH (20:02)
--- NOTE | 2017-11-23 23:06 | PDOC ---
Exam Note: Slava Note: Please also refer to the separate dictated note~for this date of service dictated separately.~Patient seen individually. Discussed the patient with Nursing staff reviewed the chart.~Reviewed interim history and current functioning. Reviewed vital signs,~Labs/ Radiology~and current medications noted below. Continue current treatment with the changes noted in the dictated addendum note Assessment: Vital Signs: Vital Signs Date Time Temp Pulse Resp B/P (MAP) Pulse Ox O2 Delivery O2 Flow Rate FiO2 11/23/17 19:36 95 11/23/17 17:00 95.8 105 16 121/93 (102) I&O Intake and Output 11/23/17 07:00 Intake Total 1200 ml Balance 1200 ml Intake Oral 1200 ml Current Medications: Meds: Current Medications Acetaminophen (Tylenol) 650 mg PRN Q6HRS PRN PO PAIN / TEMP; Start 11/12/17 at 22:15; Stop 11/12/17 at 23:06; Status DC Al Hydroxide/Mg Hydroxide (Mylanta Plus Xs) 15 ml PRN AFTMEALHC PRN PO DYSPEPSIA; Start 11/12/17 at 22:15 Magnesium Hydroxide (Milk Of Magnesia) 2,400 mg PRN QHS PRN PO CONSTIPATION Last administered on 11/19/17at 19:55; Start 11/12/17 at 22:15 Lorazepam (Ativan) 0.5 mg TID PO Last administered on 11/14/17at 09:17; Start at 22:30; Stop 11/14/17 at 13:07; Status DC Mirtazapine (Remeron) 15 mg QHS PO Last administered on 11/23/17 20:02; Start 11/12/17 at 22:30 Acetaminophen (Tylenol) 650 mg BID PO Last administered on 11/23/17 20:02; Start 11/13/17 at 09:00 Acetaminophen (Tylenol) 650 mg PRN Q4HRS PRN PO PAIN / TEMP; Start 11/12/17 at 23:15 Vitamin D (Vitamin D3) 50,000 unit QTH PO Last administered on 11/21/17 16:23; Start 11/14/17 at 16:00 Clopidogrel Bisulfate (Plavix) 75 mg DAILY PO Last administered on 11/23/17at 08: 44; Start 11/13/17 at 09:00 Levetiracetam (Keppra) 500 mg BID PO Last administered on 11/13/17at 08:34; Start 11/13/17 at 09:00; Stop 11/13/17 at 09:43; Status DC Levothyroxine Sodium (Synthroid) 100 mcg DAILYAC PO Last administered on at 09:17; Start 11/13/17 at 07:30; Stop 11/14/17 at 16:49; Status DC Acetaminophen/ Hydrocodone Bitart (Lortab 5/325) 1 tab PRN Q4HRS PRN PO PAIN Last administered on 11/19/17at 13:01; Start 11/12/17 at 23:15 Triamcinolone Acetonide (Kenalog) 1 jyoti PRN DAILY PRN TP ITCHING/REDNESS; Start 11/12/17 at 23:15 Multivitamins/ Minerals (I-Kevin) 1 tab DAILY PO Last administered on 11/23/17at 08:44; Start 11/13/17 at 09:00 Levetiracetam (Keppra) 500 mg BID PO Last administered on 11/23/17at 20:03; Start 11/13/17 at 10:00 Cyanocobalamin (Vitamin B-12) 1,000 mcg WEEKLY IM Last administered on at 08:51; Start 11/13/17 at 17:30 Lorazepam (Ativan) 0.5 mg BID PO ; Start 11/14/17 at 21:00; Stop 11/14/17 at 21: 00; Status DC Lorazepam (Ativan) 0.25 mg DAILY@1400 PRN PO ANXIETY / AGITATION; Start at 14:00; Stop 11/14/17 at 14:00; Status DC Lorazepam (Ativan) 0.25 mg DAILY PO Last administered on 11/23/17at 08:50; Start 11/16/17 at 09:00; Stop 11/23/17 at 09:01; Status DC Lorazepam (Ativan) 0.25 mg DAILY@1400 PO Last administered on 11/19/17at 13:00; Start 11/14/17 at 14:00; Stop 11/19/17 at 14:02; Status DC Lorazepam (Ativan) 0.5 mg QHS PO Last administered on 11/17/17 20:05; Start at 21:00; Stop 11/17/17 at 21:01; Status DC Lorazepam (Ativan) 0.25 mg QHS PO Last administered on 11/21/17 20:07; Start at 21:00; Stop 11/21/17 at 21:01; Status DC Lorazepam (Ativan) 0.5 mg DAILY PO Last administered on 11/15/17 09:43; Start 11/15/17 at 09:00; Stop 11/15/17 at 09:01; Status DC Levothyroxine Sodium (Synthroid) 100 mcg DAILY06 PO Last administered on 05:11; Start 11/15/17 at 06:00 Quetiapine Fumarate (SEROquel) 12.5 mg DAILY PO Last administered on 11/23/17 08:45; Start 11/15/17 at 09:00 Olanzapine (ZyPREXA ZYDIS) 1.25 mg PRN Q2HR PRN PO PSYCHOSIS Last administered on 11/23/17 11:15; Start 11/14/17 at 18:15 Quetiapine Fumarate (SEROquel) 6.25 mg DAILY@1300 PO Last administered on 12:12; Start 11/20/17 at 13:00 Bisacodyl (Dulcolax Supp) 10 mg PRN DAILY PRN [place] CONSTIPATION Last administered on 11/20/17 20:38; Start 11/20/17 at 19:15 Melatonin 3 mg HS PO Last administered on 11/23/17 20:02; Start 11/20/17 at 21: 00 Trazodone HCl (Desyrel) 25 mg PRN QHS PRN PO INSOMNIA, MAY REPEAT X1 Last administered on 11/22/17 21:03; Start 11/22/17 at 18:45 Polyethylene Glycol (miraLAX) 17 gm DAILY PO ; Start 11/24/17 at 09:00 Active Scripts Active Reported D3-50 (Cholecalciferol (Vitamin D3)) 50,000 Unit Capsule 50,000 Unit PO QTH Vicodin 5-300 Mg Tablet (Hydrocodone Bit/Acetaminophen) 1 Each Tablet 1 Tab PO PRN Q4HRS PRN Tylenol (Acetaminophen) 325 Mg Tablet 650 Mg PO BID Tylenol (Acetaminophen) 325 Mg Tablet 650 Mg PO PRN Q4HRS PRN Triamcinolone Acetonide 15 Gm Cream..g. 1 Gm TP PRN DAILY PRN Remeron (Mirtazapine) 15 Mg Tablet 7.5 Mg PO QHS Preservision Areds Softgel (Vit A/Vit C/Vit E/Zinc/Copper) 1 Each Capsule 1 Cap PO DAILY Lorazepam 0.5 Mg Tablet 0.5 Mg PO TID Levothyroxine Sodium 100 Mcg Tablet 100 Mcg PO DAILYAC Keppra (Levetiracetam) 500 Mg Tablet 500 Mg PO BID Clopidogrel (Clopidogrel Bisulfate) 75 Mg Tablet 75 Mg PO DAILY I have reviewed the current psychotropics carefully including drug interactions. Risk benefit ratio favors no change other than as noted in my dictated progress note. Diagnosis: Problems: (1) Dementia (2) Combative behavior (3) Anxiety disorder (4) Dementia in Alzheimer's disease with delusions (5) Dementia in Alzheimer's disease with depression (6) Dementia, vascular, with delusions (7) Dementia, vascular, with depression (8) Impulse control disorder (9) Psychosis, atypical AYSHA SEPULVEDA MD November 23, 2017 23:06
[2017-11-24] MEDS: LEVOTHYROXINE 100 MCG TABLET PO SCH (05:26)
[2017-11-24 06:26] VITALS: BP 117/51
[2017-11-24] MEDS: ACETAMINOPHEN 325 MG TABLET PO SCH ×2 (09:00→20:19)
[2017-11-24] MEDS: POLYETHYLENE GLYCOL 3350 17 GM PACKET. PO SCH (09:00)
[2017-11-24] MEDS: MULTIVITAMIN I-VITE TABLET. PO SCH (09:00)
[2017-11-24] MEDS: QUEtiapine 25 MG TABLET. PO SCH ×3 (09:00→20:20)
[2017-11-24] MEDS: CLOPIDOGREL BISULFATE 75 MG TABLET PO SCH (09:00)
[2017-11-24 10:09] LABS: BASO # 0.1 x10^3/uL (0.0-0.2); BASO % 1 % (0-3); EOS # 0.5 x10^3/uL (0.0-0.7); EOS % 7 % (0-3); HEMATOCRIT 35.4 % (39.0-53.0); HEMOGLOBIN 11.9 g/dL (13.0-17.5); LYMPH # 1.1 x10^3/uL (1.0-4.8); LYMPH % 15 % (24-48); MEAN CORPUSCULAR HEMOGLOBIN 31 pg (25-35); MEAN CORPUSCULAR HGB CONC 34 g/dL (31-37); MEAN CORPUSCULAR VOLUME 94 fL (79-100); MONO # 0.5 x10^3/uL (0.0-1.1); MONO % 7 % (0-9); NEUT % 70 % (31-73); PLATELET COUNT 245 x10^3/uL (140-400); RED BLOOD COUNT 3.78 x10^6/uL (4.30-5.70); RED CELL DISTRIBUTION WIDTH 15.8 % (11.5-14.5); WHITE BLOOD COUNT 7.2 x10^3/uL (4.0-11.0)
[2017-11-24 10:29] LABS: ALBUMIN 3.1 g/dL (3.4-5.0); ALBUMIN/GLOBULIN RATIO 0.9 (1.0-1.7); CALCIUM 8.8 mg/dL (8.5-10.1); GFR 70.4; POTASSIUM 3.6 mmol/L (3.5-5.1); TOTAL BILIRUBIN 0.5 mg/dL (0.2-1.0); TOTAL PROTEIN 6.7 g/dL (6.4-8.2)
[2017-11-24 16:44] VITALS: BP 114/60
--- NOTE | 2017-11-24 18:52 | PDOC ---
Exam Note: Slava Note: Please also refer to the separate dictated note~for this date of service dictated separately.~Patient seen individually. Discussed the patient with Nursing staff reviewed the chart.~Reviewed interim history and current functioning. Reviewed vital signs,~Labs/ Radiology~and current medications noted below. Continue current treatment with the changes noted in the dictated addendum note Assessment: Vital Signs: Vital Signs Date Time Temp Pulse Resp B/P (MAP) Pulse Ox O2 Delivery O2 Flow Rate FiO2 11/24/17 16:44 97.5 80 24 114/60 (78) 96 I&O Intake and Output 11/24/17 07:00 Intake Total 900 ml Balance 900 ml Intake Oral 900 ml Labs: Laboratory Tests Test 11/24/17 09:23 White Blood Count 7.2 x10^3/uL (4.0-11.0) Red Blood Count 3.78 x10^6/uL (4.30-5.70) L Hemoglobin 11.9 g/dL (13.0-17.5) L Hematocrit 35.4 % (39.0-53.0) L Mean Corpuscular Volume 94 fL (79-100) Mean Corpuscular Hemoglobin 31 pg (25-35) Mean Corpuscular Hemoglobin Concent 34 g/dL (31-37) Red Cell Distribution Width 15.8 % (11.5-14.5) H Platelet Count 245 x10^3/uL (140-400) Neutrophils (%) (Auto) 70 % (31-73) Lymphocytes (%) (Auto) 15 % (24-48) L Monocytes (%) (Auto) 7 % (0-9) Eosinophils (%) (Auto) 7 % (0-3) H Basophils (%) (Auto) 1 % (0-3) Neutrophils # (Auto) 5.0 x10^3uL (1.8-7.7) Lymphocytes # (Auto) 1.1 x10^3/uL (1.0-4.8) Monocytes # (Auto) 0.5 x10^3/uL (0.0-1.1) Eosinophils # (Auto) 0.5 x10^3/uL (0.0-0.7) Basophils # (Auto) 0.1 x10^3/uL (0.0-0.2) Sodium Level 146 mmol/L (136-145) H Potassium Level 3.6 mmol/L (3.5-5.1) Chloride Level 108 mmol/L (98-107) H Carbon Dioxide Level 33 mmol/L (21-32) H Anion Gap 5 (6-14) L Blood Urea Nitrogen 23 mg/dL (8-26) Creatinine 1.0 mg/dL (0.7-1.3) Estimated GFR (Cockcroft-Gault) 70.4 BUN/Creatinine Ratio 23 (6-20) H Glucose Level 134 mg/dL (70-99) H Calcium Level 8.8 mg/dL (8.5-10.1) Total Bilirubin 0.5 mg/dL (0.2-1.0) Aspartate Amino Transferase (AST) 41 U/L (15-37) H Alanine Aminotransferase (ALT) 31 U/L (16-63) Alkaline Phosphatase 89 U/L (46-116) Total Protein 6.7 g/dL (6.4-8.2) Albumin 3.1 g/dL (3.4-5.0) L Albumin/Globulin Ratio 0.9 (1.0-1.7) L Current Medications: Meds: Current Medications Acetaminophen (Tylenol) 650 mg PRN Q6HRS PRN PO PAIN / TEMP; Start 11/12/17 at 22:15; Stop 11/12/17 at 23:06; Status DC Al Hydroxide/Mg Hydroxide (Mylanta Plus Xs) 15 ml PRN AFTMEALHC PRN PO DYSPEPSIA; Start 11/12/17 at 22:15 Magnesium Hydroxide (Milk Of Magnesia) 2,400 mg PRN QHS PRN PO CONSTIPATION Last administered on 11/19/17at 19:55; Start 11/12/17 at 22:15 Lorazepam (Ativan) 0.5 mg TID PO Last administered on 11/14/17at 09:17; Start at 22:30; Stop 11/14/17 at 13:07; Status DC Mirtazapine (Remeron) 15 mg QHS PO Last administered on 11/23/17at 20:02; Start 11/12/17 at 22:30 Acetaminophen (Tylenol) 650 mg BID PO Last administered on 11/24/17at 09:00; Start 11/13/17 at 09:00 Acetaminophen (Tylenol) 650 mg PRN Q4HRS PRN PO PAIN / TEMP; Start 11/12/17 at 23:15 Vitamin D (Vitamin D3) 50,000 unit QTH PO Last administered on 11/21/17 16:23; Start 11/14/17 at 16:00 Clopidogrel Bisulfate (Plavix) 75 mg DAILY PO Last administered on 11/24/17 09: 00; Start 11/13/17 at 09:00 Levetiracetam (Keppra) 500 mg BID PO Last administered on 11/13/17at 08:34; Start 11/13/17 at 09:00; Stop 11/13/17 at 09:43; Status DC Levothyroxine Sodium (Synthroid) 100 mcg DAILYAC PO Last administered on 09:17; Start 11/13/17 at 07:30; Stop 11/14/17 at 16:49; Status DC Acetaminophen/ Hydrocodone Bitart (Lortab 5/325) 1 tab PRN Q4HRS PRN PO PAIN Last administered on 11/19/17at 13:01; Start 11/12/17 at 23:15 Triamcinolone Acetonide (Kenalog) 1 jyoti PRN DAILY PRN TP ITCHING/REDNESS; Start 11/12/17 at 23:15 Multivitamins/ Minerals (I-Kevin) 1 tab DAILY PO Last administered on 11/24/17at 09:00; Start 11/13/17 at 09:00 Levetiracetam (Keppra) 500 mg BID PO Last administered on 11/24/17 09:00; Start 11/13/17 at 10:00 Cyanocobalamin (Vitamin B-12) 1,000 mcg WEEKLY IM Last administered on at 08:51; Start 11/13/17 at 17:30 Lorazepam (Ativan) 0.5 mg BID PO ; Start 11/14/17 at 21:00; Stop 11/14/17 at 21: 00; Status DC Lorazepam (Ativan) 0.25 mg DAILY@1400 PRN PO ANXIETY / AGITATION; Start at 14:00; Stop 11/14/17 at 14:00; Status DC Lorazepam (Ativan) 0.25 mg DAILY PO Last administered on 11/23/17 08:50; Start 11/16/17 at 09:00; Stop 11/23/17 at 09:01; Status DC Lorazepam (Ativan) 0.25 mg DAILY@1400 PO Last administered on 11/19/17 13:00; Start 11/14/17 at 14:00; Stop 11/19/17 at 14:02; Status DC Lorazepam (Ativan) 0.5 mg QHS PO Last administered on 11/17/17 20:05; Start at 21:00; Stop 11/17/17 at 21:01; Status DC Lorazepam (Ativan) 0.25 mg QHS PO Last administered on 11/21/17 20:07; Start at 21:00; Stop 11/21/17 at 21:01; Status DC Lorazepam (Ativan) 0.5 mg DAILY PO Last administered on 11/15/17 09:43; Start 11/15/17 at 09:00; Stop 11/15/17 at 09:01; Status DC Levothyroxine Sodium (Synthroid) 100 mcg DAILY06 PO Last administered on 05:26; Start 11/15/17 at 06:00 Quetiapine Fumarate (SEROquel) 12.5 mg DAILY PO Last administered on 11/24/17 09:00; Start 11/15/17 at 09:00 Olanzapine (ZyPREXA ZYDIS) 1.25 mg PRN Q2HR PRN PO PSYCHOSIS Last administered on 11/23/17 11:15; Start 11/14/17 at 18:15 Quetiapine Fumarate (SEROquel) 6.25 mg DAILY@1300 PO Last administered on 15:18; Start 11/20/17 at 13:00 Bisacodyl (Dulcolax Supp) 10 mg PRN DAILY PRN [place] CONSTIPATION Last administered on 11/20/17 20:38; Start 11/20/17 at 19:15 Melatonin 3 mg HS PO Last administered on 11/23/17 20:02; Start 11/20/17 at 21: 00 Trazodone HCl (Desyrel) 25 mg PRN QHS PRN PO INSOMNIA, MAY REPEAT X1 Last administered on 5/4/18at 21:03; Start 11/22/17 at 18:45 Polyethylene Glycol (miraLAX) 17 gm DAILY PO Last administered on 11/24/17at 09: 00; Start 11/24/17 at 09:00 Active Scripts Active Reported D3-50 (Cholecalciferol (Vitamin D3)) 50,000 Unit Capsule 50,000 Unit PO QTH Vicodin 5-300 Mg Tablet (Hydrocodone Bit/Acetaminophen) 1 Each Tablet 1 Tab PO PRN Q4HRS PRN Tylenol (Acetaminophen) 325 Mg Tablet 650 Mg PO BID Tylenol (Acetaminophen) 325 Mg Tablet 650 Mg PO PRN Q4HRS PRN Triamcinolone Acetonide 15 Gm Cream..g. 1 Gm TP PRN DAILY PRN Remeron (Mirtazapine) 15 Mg Tablet 7.5 Mg PO QHS Preservision Areds Softgel (Vit A/Vit C/Vit E/Zinc/Copper) 1 Each Capsule 1 Cap PO DAILY Lorazepam 0.5 Mg Tablet 0.5 Mg PO TID Levothyroxine Sodium 100 Mcg Tablet 100 Mcg PO DAILYAC Keppra (Levetiracetam) 500 Mg Tablet 500 Mg PO BID Clopidogrel (Clopidogrel Bisulfate) 75 Mg Tablet 75 Mg PO DAILY I have reviewed the current psychotropics carefully including drug interactions. Risk benefit ratio favors no change other than as noted in my dictated progress note. Diagnosis: Problems: (1) Psychosis, atypical (2) Impulse control disorder (3) Dementia, vascular, with depression (4) Dementia, vascular, with delusions (5) Dementia in Alzheimer's disease with depression (6) Dementia in Alzheimer's disease with delusions (7) Anxiety disorder AYSHA SEPULVEDA MD November 24, 2017 18:52
[2017-11-24] MEDS: MIRTAZAPINE 15 MG TABLET PO SCH (20:19)
[2017-11-24] MEDS: MELATONIN 3 MG TABLET PO SCH (20:19)
[2017-11-25] MEDS: LEVOTHYROXINE 100 MCG TABLET PO SCH (05:04)
[2017-11-25 06:24] VITALS: BP 105/71
[2017-11-25] MEDS: ACETAMINOPHEN 325 MG TABLET PO SCH ×2 (06:28→20:56)
[2017-11-25] MEDS: POLYETHYLENE GLYCOL 3350 17 GM PACKET. PO SCH (06:28)
[2017-11-25] MEDS: MULTIVITAMIN I-VITE TABLET. PO SCH (06:28)
[2017-11-25] MEDS: QUEtiapine 25 MG TABLET. PO SCH ×3 (06:28→17:15)
[2017-11-25] MEDS: CLOPIDOGREL BISULFATE 75 MG TABLET PO SCH (06:28)
[2017-11-25] MEDS: BISACODYL 10 MG SUPP.RECT PR PRN (14:33)
[2017-11-25 16:34] VITALS: BP 118/74
[2017-11-25] MEDS: MELATONIN 3 MG TABLET PO SCH (20:56)
[2017-11-25] MEDS: MIRTAZAPINE 15 MG TABLET PO SCH (20:56)
--- NOTE | 2017-11-25 21:02 | PDOC ---
Exam Note: Slava Note: Please also refer to the separate dictated note~for this date of service dictated separately.~Patient seen individually. Discussed the patient with Nursing staff reviewed the chart.~Reviewed interim history and current functioning. Reviewed vital signs,~Labs/ Radiology~and current medications noted below. Continue current treatment with the changes noted in the dictated addendum note Assessment: Vital Signs: Vital Signs Date Time Temp Pulse Resp B/P (MAP) Pulse Ox O2 Delivery O2 Flow Rate FiO2 11/25/17 16:34 98.9 97 16 118/74 (89) 95 I&O Intake and Output 11/25/17 07:00 Intake Total 840 ml Balance 840 ml Intake Oral 840 ml Current Medications: Meds: Current Medications Acetaminophen (Tylenol) 650 mg PRN Q6HRS PRN PO PAIN / TEMP; Start 11/12/17 at 22:15; Stop 11/12/17 at 23:06; Status DC Al Hydroxide/Mg Hydroxide (Mylanta Plus Xs) 15 ml PRN AFTMEALHC PRN PO DYSPEPSIA; Start 11/12/17 at 22:15 Magnesium Hydroxide (Milk Of Magnesia) 2,400 mg PRN QHS PRN PO CONSTIPATION Last administered on 11/19/17at 19:55; Start 11/12/17 at 22:15 Lorazepam (Ativan) 0.5 mg TID PO Last administered on 11/14/17at 09:17; Start at 22:30; Stop 11/14/17 at 13:07; Status DC Mirtazapine (Remeron) 15 mg QHS PO Last administered on 11/25/17 20:56; Start 11/12/17 at 22:30 Acetaminophen (Tylenol) 650 mg BID PO Last administered on 11/25/17 20:56; Start 11/13/17 at 09:00 Acetaminophen (Tylenol) 650 mg PRN Q4HRS PRN PO PAIN / TEMP; Start 11/12/17 at 23:15 Vitamin D (Vitamin D3) 50,000 unit QTH PO Last administered on 11/21/17 16:23; Start 11/14/17 at 16:00 Clopidogrel Bisulfate (Plavix) 75 mg DAILY PO Last administered on 11/25/17at 06: 28; Start 11/13/17 at 09:00 Levetiracetam (Keppra) 500 mg BID PO Last administered on 11/13/17at 08:34; Start 11/13/17 at 09:00; Stop 11/13/17 at 09:43; Status DC Levothyroxine Sodium (Synthroid) 100 mcg DAILYAC PO Last administered on at 09:17; Start 11/13/17 at 07:30; Stop 11/14/17 at 16:49; Status DC Acetaminophen/ Hydrocodone Bitart (Lortab 5/325) 1 tab PRN Q4HRS PRN PO PAIN Last administered on 11/19/17 13:01; Start 11/12/17 at 23:15 Triamcinolone Acetonide (Kenalog) 1 jyoti PRN DAILY PRN TP ITCHING/REDNESS; Start 11/12/17 at 23:15 Multivitamins/ Minerals (I-Kevin) 1 tab DAILY PO Last administered on 11/25/17at 06:28; Start 11/13/17 at 09:00 Levetiracetam (Keppra) 500 mg BID PO Last administered on 11/25/17at 20:56; Start 11/13/17 at 10:00 Cyanocobalamin (Vitamin B-12) 1,000 mcg WEEKLY IM Last administered on at 08:51; Start 11/13/17 at 17:30 Lorazepam (Ativan) 0.5 mg BID PO ; Start 11/14/17 at 21:00; Stop 11/14/17 at 21: 00; Status DC Lorazepam (Ativan) 0.25 mg DAILY@1400 PRN PO ANXIETY / AGITATION; Start at 14:00; Stop 11/14/17 at 14:00; Status DC Lorazepam (Ativan) 0.25 mg DAILY PO Last administered on 11/23/17at 08:50; Start 11/16/17 at 09:00; Stop 11/23/17 at 09:01; Status DC Lorazepam (Ativan) 0.25 mg DAILY@1400 PO Last administered on 11/19/17at 13:00; Start 11/14/17 at 14:00; Stop 11/19/17 at 14:02; Status DC Lorazepam (Ativan) 0.5 mg QHS PO Last administered on 11/17/17 20:05; Start at 21:00; Stop 11/17/17 at 21:01; Status DC Lorazepam (Ativan) 0.25 mg QHS PO Last administered on 11/21/17 20:07; Start at 21:00; Stop 11/21/17 at 21:01; Status DC Lorazepam (Ativan) 0.5 mg DAILY PO Last administered on 11/15/17 09:43; Start 11/15/17 at 09:00; Stop 11/15/17 at 09:01; Status DC Levothyroxine Sodium (Synthroid) 100 mcg DAILY06 PO Last administered on 05:04; Start 11/15/17 at 06:00 Quetiapine Fumarate (SEROquel) 12.5 mg DAILY PO Last administered on 11/25/17 06:28; Start 11/15/17 at 09:00 Olanzapine (ZyPREXA ZYDIS) 1.25 mg PRN Q2HR PRN PO PSYCHOSIS Last administered on 11/25/17 11:46; Start 11/14/17 at 18:15 Quetiapine Fumarate (SEROquel) 6.25 mg DAILY@1300 PO Last administered on 12:33; Start 11/20/17 at 13:00 Bisacodyl (Dulcolax Supp) 10 mg PRN DAILY PRN [place] CONSTIPATION Last administered on 11/25/17 14:33; Start 11/20/17 at 19:15 Melatonin 3 mg HS PO Last administered on 11/25/17 20:56; Start 11/20/17 at 21: 00 Trazodone HCl (Desyrel) 25 mg PRN QHS PRN PO INSOMNIA, MAY REPEAT X1 Last administered on 11/22/17 21:03; Start 11/22/17 at 18:45 Polyethylene Glycol (miraLAX) 17 gm DAILY PO Last administered on 11/25/17 06: 28; Start 11/24/17 at 09:00; Stop 11/25/17 at 16:07; Status DC Quetiapine Fumarate (SEROquel) 6.25 mg DAILYBFRSUP PO Last administered on 17:15; Start 5/6/18 at 19:00 Sennosides (Senna) 8.6 mg DAILY PO ; Start 11/26/17 at 09:00 Active Scripts Active Reported D3-50 (Cholecalciferol (Vitamin D3)) 50,000 Unit Capsule 50,000 Unit PO QTH Vicodin 5-300 Mg Tablet (Hydrocodone Bit/Acetaminophen) 1 Each Tablet 1 Tab PO PRN Q4HRS PRN Tylenol (Acetaminophen) 325 Mg Tablet 650 Mg PO BID Tylenol (Acetaminophen) 325 Mg Tablet 650 Mg PO PRN Q4HRS PRN Triamcinolone Acetonide 15 Gm Cream..g. 1 Gm TP PRN DAILY PRN Remeron (Mirtazapine) 15 Mg Tablet 7.5 Mg PO QHS Preservision Areds Softgel (Vit A/Vit C/Vit E/Zinc/Copper) 1 Each Capsule 1 Cap PO DAILY Lorazepam 0.5 Mg Tablet 0.5 Mg PO TID Levothyroxine Sodium 100 Mcg Tablet 100 Mcg PO DAILYAC Keppra (Levetiracetam) 500 Mg Tablet 500 Mg PO BID Clopidogrel (Clopidogrel Bisulfate) 75 Mg Tablet 75 Mg PO DAILY I have reviewed the current psychotropics carefully including drug interactions. Risk benefit ratio favors no change other than as noted in my dictated progress note. Diagnosis: Problems: (1) Dementia (2) Combative behavior (3) Anxiety disorder (4) Dementia in Alzheimer's disease with delusions (5) Dementia in Alzheimer's disease with depression (6) Dementia, vascular, with delusions (7) Dementia, vascular, with depression (8) Impulse control disorder (9) Psychosis, atypical AYSHA SEPULVEDA MD November 25, 2017 21:02
--- NOTE | 2017-11-26 05:22 | PN ---
DATE: 11/22/2017 This is a late entry for 11/22/2017 and covers the elements not covered in my initial note of 11/22/2017. SUBJECTIVE: I met with the patient in the evening. The patient slept 4-1/4 hours. REVIEW OF SYSTEMS: Ambulation impaired, in wheelchair. No CV, , pulmonary, eye system symptoms on review. Reliability poor. MENTAL STATUS EXAM: Oriented to himself. Insight, judgment, recent and remote memory, attention, concentration, fund of knowledge poor, consistent with his diagnosis mentioned in my initial note. PLAN: Continue to taper the Ativan, start trazodone 25 mg at bedtime p.r.n., november repeat x 1 for insomnia. Rest unchanged from initial note. MAN Rosas SEPULVEDA MD DR: CHASE/wally JOB#: [id number] / [id number]
--- NOTE | 2017-11-26 05:24 | PN ---
DATE: 11/23/2017 This is a late entry for 11/23/2017 and covers the elements not covered in my initial note of 11/23/2017. SUBJECTIVE: I met with the patient in the evening. Overall, the patient remains confused, compliant with medications, takes some of them whole, restless, at times drowsy. REVIEW OF SYSTEMS: Ambulation impaired, in wheelchair. No CV, , pulmonary, eye, ENT system symptoms on review. Reliability poor. Sitting head bent forward not very verbal. MENTAL STATUS EXAM: Insight, judgment, recent and remote memory, attention, concentration, fund of knowledge poor, consistent with his diagnosis mentioned in my initial note. PLAN: Continue current psychotropics. Adjust as indicated. MAN Rosas SEPULVEDA MD DR: CHASE/wally JOB#: [id number] / [id number]
--- NOTE | 2017-11-26 05:28 | PN ---
DATE: 11/24/2017 This is a late entry for 11/24/2017 and covers the elements not covered in my initial note of 11/24/2017. SUBJECTIVE: I met with the patient in the evening. Overall, the patient did well in the morning, been restless around 4:00 p.m., did eat his breakfast, lunch, nothing for dinner, somewhat irritable. REVIEW OF SYSTEMS: Ambulation impaired, in wheelchair. No CV, , pulmonary, eye system symptoms on review. MENTAL STATUS EXAM: Oriented to himself. Insight, judgment, recent and remote memory, attention, concentration, fund of knowledge poor, consistent with his diagnosis. He is seated in the wheelchair head bent forward. IMPRESSION: Unchanged from initial note. PLAN: Continue psychotropics mentioned in my initial note, but add Seroquel 6.25 mg at 5 p.m. to help with his marked mood lability in the evening. MAN Rosas SEPULVEDA MD DR: CHASE/wally JOB#: [id number] / [id number]
[2017-11-26 06:09] VITALS: BP 125/65
[2017-11-26] MEDS: LEVOTHYROXINE 100 MCG TABLET PO SCH (06:19)
[2017-11-26] MEDS: CLOPIDOGREL BISULFATE 75 MG TABLET PO SCH (08:17)
[2017-11-26] MEDS: MULTIVITAMIN I-VITE TABLET. PO SCH (08:17)
[2017-11-26] MEDS: SENNOSIDES 8.6 MG TABLET PO SCH (08:17)
[2017-11-26] MEDS: QUEtiapine 25 MG TABLET. PO SCH ×3 (08:18→17:28)
[2017-11-26] MEDS: ACETAMINOPHEN 325 MG TABLET PO SCH ×2 (08:18→20:53)
[2017-11-26 16:18] VITALS: BP 105/54
[2017-11-26] MEDS: MELATONIN 3 MG TABLET PO SCH (20:52)
[2017-11-26] MEDS: MIRTAZAPINE 15 MG TABLET PO SCH (20:53)
--- NOTE | 2017-11-26 21:01 | PDOC ---
Exam Note: Slava Note: Please also refer to the separate dictated note~for this date of service dictated separately.~Patient seen individually. Discussed the patient with Nursing staff reviewed the chart.~Reviewed interim history and current functioning. Reviewed vital signs,~Labs/ Radiology~and current medications noted below. Continue current treatment with the changes noted in the dictated addendum note Assessment: Vital Signs: Vital Signs Date Time Temp Pulse Resp B/P (MAP) Pulse Ox O2 Delivery O2 Flow Rate FiO2 11/26/17 16:18 97.7 75 18 105/54 (71) 97 11/26/17 06:09 Room Air I&O Intake and Output 11/26/17 07:00 Intake Total 1920 ml Balance 1920 ml Intake Oral 1920 ml # Voids 2 # Bowel Movements 1 Current Medications: Meds: Current Medications Acetaminophen (Tylenol) 650 mg PRN Q6HRS PRN PO PAIN / TEMP; Start 11/12/17 at 22:15; Stop 11/12/17 at 23:06; Status DC Al Hydroxide/Mg Hydroxide (Mylanta Plus Xs) 15 ml PRN AFTMEALHC PRN PO DYSPEPSIA; Start 11/12/17 at 22:15 Magnesium Hydroxide (Milk Of Magnesia) 2,400 mg PRN QHS PRN PO CONSTIPATION Last administered on 11/19/17at 19:55; Start 11/12/17 at 22:15 Lorazepam (Ativan) 0.5 mg TID PO Last administered on 11/14/17at 09:17; Start at 22:30; Stop 11/14/17 at 13:07; Status DC Mirtazapine (Remeron) 15 mg QHS PO Last administered on 11/26/17at 20:53; Start 11/12/17 at 22:30 Acetaminophen (Tylenol) 650 mg BID PO Last administered on 11/26/17 20:53; Start 11/13/17 at 09:00 Acetaminophen (Tylenol) 650 mg PRN Q4HRS PRN PO PAIN / TEMP; Start 11/12/17 at 23:15 Vitamin D (Vitamin D3) 50,000 unit QTH PO Last administered on 11/21/17at 16:23; Start 11/14/17 at 16:00 Clopidogrel Bisulfate (Plavix) 75 mg DAILY PO Last administered on 11/26/17 08: 17; Start 11/13/17 at 09:00 Levetiracetam (Keppra) 500 mg BID PO Last administered on 11/13/17at 08:34; Start 11/13/17 at 09:00; Stop 11/13/17 at 09:43; Status DC Levothyroxine Sodium (Synthroid) 100 mcg DAILYAC PO Last administered on 09:17; Start 11/13/17 at 07:30; Stop 11/14/17 at 16:49; Status DC Acetaminophen/ Hydrocodone Bitart (Lortab 5/325) 1 tab PRN Q4HRS PRN PO PAIN Last administered on 11/19/17 13:01; Start 11/12/17 at 23:15 Triamcinolone Acetonide (Kenalog) 1 jyoti PRN DAILY PRN TP ITCHING/REDNESS; Start 11/12/17 at 23:15 Multivitamins/ Minerals (I-Kevin) 1 tab DAILY PO Last administered on 11/26/17 08:17; Start 11/13/17 at 09:00 Levetiracetam (Keppra) 500 mg BID PO Last administered on 11/26/17at 20:53; Start 11/13/17 at 10:00 Cyanocobalamin (Vitamin B-12) 1,000 mcg WEEKLY IM Last administered on at 08:51; Start 11/13/17 at 17:30 Lorazepam (Ativan) 0.5 mg BID PO ; Start 11/14/17 at 21:00; Stop 11/14/17 at 21: 00; Status DC Lorazepam (Ativan) 0.25 mg DAILY@1400 PRN PO ANXIETY / AGITATION; Start at 14:00; Stop 11/14/17 at 14:00; Status DC Lorazepam (Ativan) 0.25 mg DAILY PO Last administered on 11/23/17at 08:50; Start 11/16/17 at 09:00; Stop 11/23/17 at 09:01; Status DC Lorazepam (Ativan) 0.25 mg DAILY@1400 PO Last administered on 11/19/17at 13:00; Start 11/14/17 at 14:00; Stop 11/19/17 at 14:02; Status DC Lorazepam (Ativan) 0.5 mg QHS PO Last administered on 11/17/17 20:05; Start at 21:00; Stop 11/17/17 at 21:01; Status DC Lorazepam (Ativan) 0.25 mg QHS PO Last administered on 11/21/17 20:07; Start at 21:00; Stop 11/21/17 at 21:01; Status DC Lorazepam (Ativan) 0.5 mg DAILY PO Last administered on 11/15/17 09:43; Start 11/15/17 at 09:00; Stop 11/15/17 at 09:01; Status DC Levothyroxine Sodium (Synthroid) 100 mcg DAILY06 PO Last administered on 06:19; Start 11/15/17 at 06:00 Quetiapine Fumarate (SEROquel) 12.5 mg DAILY PO Last administered on 11/26/17 08:18; Start 11/15/17 at 09:00 Olanzapine (ZyPREXA ZYDIS) 1.25 mg PRN Q2HR PRN PO PSYCHOSIS Last administered on 11/25/17 11:46; Start 11/14/17 at 18:15 Quetiapine Fumarate (SEROquel) 6.25 mg DAILY@1300 PO Last administered on 13:04; Start 11/20/17 at 13:00 Bisacodyl (Dulcolax Supp) 10 mg PRN DAILY PRN [place] CONSTIPATION Last administered on 11/25/17 14:33; Start 11/20/17 at 19:15 Melatonin 3 mg HS PO Last administered on 11/26/17 20:52; Start 11/20/17 at 21: 00 Trazodone HCl (Desyrel) 25 mg PRN QHS PRN PO INSOMNIA, MAY REPEAT X1 Last administered on 11/22/17 21:03; Start 11/22/17 at 18:45 Polyethylene Glycol (miraLAX) 17 gm DAILY PO Last administered on 11/25/17 06: 28; Start 11/24/17 at 09:00; Stop 11/25/17 at 16:07; Status DC Quetiapine Fumarate (SEROquel) 6.25 mg DAILYBFRSUP PO Last administered on 5/8/ 18at 17:28; Start 11/24/17 at 19:00 Sennosides (Senna) 8.6 mg DAILY PO Last administered on 11/26/17at 08:17; Start 11/26/17 at 09:00 Active Scripts Active Reported D3-50 (Cholecalciferol (Vitamin D3)) 50,000 Unit Capsule 50,000 Unit PO QTH Vicodin 5-300 Mg Tablet (Hydrocodone Bit/Acetaminophen) 1 Each Tablet 1 Tab PO PRN Q4HRS PRN Tylenol (Acetaminophen) 325 Mg Tablet 650 Mg PO BID Tylenol (Acetaminophen) 325 Mg Tablet 650 Mg PO PRN Q4HRS PRN Triamcinolone Acetonide 15 Gm Cream..g. 1 Gm TP PRN DAILY PRN Remeron (Mirtazapine) 15 Mg Tablet 7.5 Mg PO QHS Preservision Areds Softgel (Vit A/Vit C/Vit E/Zinc/Copper) 1 Each Capsule 1 Cap PO DAILY Lorazepam 0.5 Mg Tablet 0.5 Mg PO TID Levothyroxine Sodium 100 Mcg Tablet 100 Mcg PO DAILYAC Keppra (Levetiracetam) 500 Mg Tablet 500 Mg PO BID Clopidogrel (Clopidogrel Bisulfate) 75 Mg Tablet 75 Mg PO DAILY I have reviewed the current psychotropics carefully including drug interactions. Risk benefit ratio favors no change other than as noted in my dictated progress note. Diagnosis: Problems: (1) Dementia (2) Combative behavior (3) Anxiety disorder (4) Dementia in Alzheimer's disease with delusions (5) Dementia in Alzheimer's disease with depression (6) Dementia, vascular, with delusions (7) Dementia, vascular, with depression (8) Impulse control disorder (9) Psychosis, atypical AYSHA SEPULVEDA MD November 26, 2017 21:01
--- NOTE | 2017-11-27 00:27 | PN ---
DATE: 11/25/2017 This late entry, 11/25/2017, covers elements not covered in my initial note of 11/25/2017. SUBJECTIVE: I met with the patient in the evening of 11/25/2017. Earlier in the day, discussed with Vaishnavi, social service staff, regarding the patient's progress, information from the son and also completed the statement to activate the patient's DPOA so that his son can help make decisions for him. I also had a message to call the patient's son and called and left a detailed message on the son's voice mail about the patient's current treatment progress. The patient slept 8-1/2 hours, somewhat agitated, restless at times earlier in the day. Later, he was given a suppository, had a large bowel movement, much calmer after that. REVIEW OF SYSTEMS: Ambulation impaired, in wheelchair. No CV, , pulmonary, eye, ENT system symptoms on review. Reliability poor. MENTAL STATUS EXAM: Oriented to himself. Insight, judgment, recent and remote memory, attention, concentration, fund of knowledge poor, consistent with his diagnosis mentioned in my initial note. As I met with the patient individually in the evening after his supper, he was able to tell me he had green beans for supper. One of the staff members felt it was peas, but on double checking this, the patient in fact was correct. IMPRESSION: Major neurocognitive disorder, Alzheimer, vascular with delusion, depression, behavioral disturbance. Rest unchanged. PLAN: Continue psychotropics mentioned in my initial note. Seroquel is 6.25 mg at 1300 and 1700 and 12.5 mg in the morning. Rest unchanged. MAN Rosas SEPULVEDA MD DR: CHASE/wally JOB#: [id number] / [id number]
[2017-11-27 05:58] VITALS: BP 103/47
[2017-11-27] MEDS: LEVOTHYROXINE 100 MCG TABLET PO SCH (06:17)
[2017-11-27] MEDS: MULTIVITAMIN I-VITE TABLET. PO SCH (09:24)
[2017-11-27] MEDS: SENNOSIDES 8.6 MG TABLET PO SCH (09:24)
[2017-11-27] MEDS: ACETAMINOPHEN 325 MG TABLET PO SCH ×2 (09:24→19:36)
[2017-11-27] MEDS: CLOPIDOGREL BISULFATE 75 MG TABLET PO SCH (09:24)
[2017-11-27] MEDS: QUEtiapine 25 MG TABLET. PO SCH ×3 (09:25→17:12)
[2017-11-27] MEDS: CYANOCOBALAMIN (VITAMIN B-12) 1,000 MCG/ML VIAL IM SCH (09:29)
[2017-11-27 18:23] VITALS: BP 115/55
[2017-11-27] MEDS: MELATONIN 3 MG TABLET PO SCH (19:36)
[2017-11-27] MEDS: MIRTAZAPINE 15 MG TABLET PO SCH (19:36)
--- NOTE | 2017-11-27 22:24 | PDOC ---
Exam Note: Slava Note: Please also refer to the separate dictated note~for this date of service dictated separately.~Patient seen individually. Discussed the patient with Nursing staff reviewed the chart.~Reviewed interim history and current functioning. Reviewed vital signs,~Labs/ Radiology~and current medications noted below. Continue current treatment with the changes noted in the dictated addendum note Assessment: Vital Signs: Vital Signs Date Time Temp Pulse Resp B/P (MAP) Pulse Ox O2 Delivery O2 Flow Rate FiO2 11/27/17 18:23 97.1 72 16 115/55 (75) 97 11/27/17 05:58 Room Air I&O Intake and Output 11/27/17 07:00 Intake Total 1080 ml Balance 1080 ml Intake Oral 1080 ml Current Medications: Meds: Current Medications Acetaminophen (Tylenol) 650 mg PRN Q6HRS PRN PO PAIN / TEMP; Start 11/12/17 at 22:15; Stop 11/12/17 at 23:06; Status DC Al Hydroxide/Mg Hydroxide (Mylanta Plus Xs) 15 ml PRN AFTMEALHC PRN PO DYSPEPSIA; Start 11/12/17 at 22:15 Magnesium Hydroxide (Milk Of Magnesia) 2,400 mg PRN QHS PRN PO CONSTIPATION Last administered on 11/19/17at 19:55; Start 11/12/17 at 22:15 Lorazepam (Ativan) 0.5 mg TID PO Last administered on 11/14/17at 09:17; Start at 22:30; Stop 11/14/17 at 13:07; Status DC Mirtazapine (Remeron) 15 mg QHS PO Last administered on 11/27/17 19:36; Start 11/12/17 at 22:30 Acetaminophen (Tylenol) 650 mg BID PO Last administered on 11/27/17 19:36; Start 11/13/17 at 09:00 Acetaminophen (Tylenol) 650 mg PRN Q4HRS PRN PO PAIN / TEMP; Start 11/12/17 at 23:15 Vitamin D (Vitamin D3) 50,000 unit QTH PO Last administered on 11/21/17 16:23; Start 11/14/17 at 16:00 Clopidogrel Bisulfate (Plavix) 75 mg DAILY PO Last administered on 11/27/17at 09: 24; Start 11/13/17 at 09:00 Levetiracetam (Keppra) 500 mg BID PO Last administered on 11/13/17at 08:34; Start 11/13/17 at 09:00; Stop 11/13/17 at 09:43; Status DC Levothyroxine Sodium (Synthroid) 100 mcg DAILYAC PO Last administered on at 09:17; Start 11/13/17 at 07:30; Stop 11/14/17 at 16:49; Status DC Acetaminophen/ Hydrocodone Bitart (Lortab 5/325) 1 tab PRN Q4HRS PRN PO PAIN Last administered on 11/19/17 13:01; Start 11/12/17 at 23:15 Triamcinolone Acetonide (Kenalog) 1 jyoti PRN DAILY PRN TP ITCHING/REDNESS; Start 11/12/17 at 23:15 Multivitamins/ Minerals (I-Kevin) 1 tab DAILY PO Last administered on 11/27/17at 09:24; Start 11/13/17 at 09:00 Levetiracetam (Keppra) 500 mg BID PO Last administered on 11/27/17at 19:39; Start 11/13/17 at 10:00 Cyanocobalamin (Vitamin B-12) 1,000 mcg WEEKLY IM Last administered on at 09:29; Start 11/13/17 at 17:30 Lorazepam (Ativan) 0.5 mg BID PO ; Start 11/14/17 at 21:00; Stop 11/14/17 at 21: 00; Status DC Lorazepam (Ativan) 0.25 mg DAILY@1400 PRN PO ANXIETY / AGITATION; Start at 14:00; Stop 11/14/17 at 14:00; Status DC Lorazepam (Ativan) 0.25 mg DAILY PO Last administered on 11/23/17at 08:50; Start 11/16/17 at 09:00; Stop 11/23/17 at 09:01; Status DC Lorazepam (Ativan) 0.25 mg DAILY@1400 PO Last administered on 11/19/17at 13:00; Start 11/14/17 at 14:00; Stop 11/19/17 at 14:02; Status DC Lorazepam (Ativan) 0.5 mg QHS PO Last administered on 11/17/17 20:05; Start at 21:00; Stop 11/17/17 at 21:01; Status DC Lorazepam (Ativan) 0.25 mg QHS PO Last administered on 11/21/17 20:07; Start at 21:00; Stop 11/21/17 at 21:01; Status DC Lorazepam (Ativan) 0.5 mg DAILY PO Last administered on 11/15/17 09:43; Start 11/15/17 at 09:00; Stop 11/15/17 at 09:01; Status DC Levothyroxine Sodium (Synthroid) 100 mcg DAILY06 PO Last administered on 06:17; Start 11/15/17 at 06:00 Quetiapine Fumarate (SEROquel) 12.5 mg DAILY PO Last administered on 11/27/17 09:25; Start 11/15/17 at 09:00 Olanzapine (ZyPREXA ZYDIS) 1.25 mg PRN Q2HR PRN PO PSYCHOSIS Last administered on 11/25/17 11:46; Start 11/14/17 at 18:15 Quetiapine Fumarate (SEROquel) 6.25 mg DAILY@1300 PO Last administered on 12:38; Start 11/20/17 at 13:00 Bisacodyl (Dulcolax Supp) 10 mg PRN DAILY PRN [place] CONSTIPATION Last administered on 11/25/17 14:33; Start 11/20/17 at 19:15 Melatonin 3 mg HS PO Last administered on 11/27/17 19:36; Start 11/20/17 at 21: 00 Trazodone HCl (Desyrel) 25 mg PRN QHS PRN PO INSOMNIA, MAY REPEAT X1 Last administered on 11/22/17 21:03; Start 11/22/17 at 18:45 Polyethylene Glycol (miraLAX) 17 gm DAILY PO Last administered on 11/25/17 06: 28; Start 11/24/17 at 09:00; Stop 11/25/17 at 16:07; Status DC Quetiapine Fumarate (SEROquel) 6.25 mg DAILYBFRSUP PO Last administered on 17:12; Start 11/24/17 at 19:00 Sennosides (Senna) 8.6 mg DAILY PO Last administered on 11/27/17at 09:24; Start 11/26/17 at 09:00 Active Scripts Active Reported D3-50 (Cholecalciferol (Vitamin D3)) 50,000 Unit Capsule 50,000 Unit PO QTH Vicodin 5-300 Mg Tablet (Hydrocodone Bit/Acetaminophen) 1 Each Tablet 1 Tab PO PRN Q4HRS PRN Tylenol (Acetaminophen) 325 Mg Tablet 650 Mg PO BID Tylenol (Acetaminophen) 325 Mg Tablet 650 Mg PO PRN Q4HRS PRN Triamcinolone Acetonide 15 Gm Cream..g. 1 Gm TP PRN DAILY PRN Remeron (Mirtazapine) 15 Mg Tablet 7.5 Mg PO QHS Preservision Areds Softgel (Vit A/Vit C/Vit E/Zinc/Copper) 1 Each Capsule 1 Cap PO DAILY Lorazepam 0.5 Mg Tablet 0.5 Mg PO TID Levothyroxine Sodium 100 Mcg Tablet 100 Mcg PO DAILYAC Keppra (Levetiracetam) 500 Mg Tablet 500 Mg PO BID Clopidogrel (Clopidogrel Bisulfate) 75 Mg Tablet 75 Mg PO DAILY I have reviewed the current psychotropics carefully including drug interactions. Risk benefit ratio favors no change other than as noted in my dictated progress note. Diagnosis: Problems: (1) Dementia (2) Combative behavior (3) Anxiety disorder (4) Dementia in Alzheimer's disease with delusions (5) Dementia in Alzheimer's disease with depression (6) Dementia, vascular, with delusions (7) Dementia, vascular, with depression (8) Impulse control disorder (9) Psychosis, atypical AYSHA SEPULVEDA MD November 27, 2017 22:24
--- NOTE | 2017-11-28 02:42 | PN ---
DATE: 11/27/2017 PSYCHIATRIC PROGRESS NOTE This is a late entry of 11/26/2017 covers elements not covered in my initial note of 11/26/2017. I met with the patient in the evening. The patient slept 5-1/2 hours previous evening, doing a little better, more awake, trying to feed himself. REVIEW OF SYSTEMS: Ambulation impaired, in Broda chair. Poor vision. No CV, , pulmonary system symptoms on review. Reliability poor. MENTAL STATUS EXAM: Oriented to himself. Insight, judgment, recent and remote memory, attention, concentration, fund of knowledge poor, consistent with his diagnosis mentioned in my initial note. PLAN: Continue current psychotropics including the increased Seroquel for now. MAN Rosas SEPULVEDA MD DR: CHASE/wally JOB#: [id number] / [id number]
[2017-11-28 06:00] VITALS: BP 125/60
[2017-11-28] MEDS: LEVOTHYROXINE 100 MCG TABLET PO SCH (06:00)
[2017-11-28] MEDS: QUEtiapine 25 MG TABLET. PO SCH ×3 (09:00→16:36)
[2017-11-28] MEDS: MULTIVITAMIN I-VITE TABLET. PO SCH (09:00)
[2017-11-28] MEDS: CLOPIDOGREL BISULFATE 75 MG TABLET PO SCH (09:00)
[2017-11-28] MEDS: SENNOSIDES 8.6 MG TABLET PO SCH (09:00)
[2017-11-28] MEDS: ACETAMINOPHEN 325 MG TABLET PO SCH ×2 (09:00→20:40)
[2017-11-28] MEDS: CHOLECALCIFEROL (VITAMIN D3) 50,000 UNIT CAPSULE PO SCH (16:36)
[2017-11-28 18:23] VITALS: BP 129/58
[2017-11-28] MEDS: MIRTAZAPINE 15 MG TABLET PO SCH (20:40)
[2017-11-28] MEDS: MELATONIN 3 MG TABLET PO SCH (20:40)
--- NOTE | 2017-11-28 20:58 | PDOC ---
Exam Note: Slava Note: Please also refer to the separate dictated note~for this date of service dictated separately.~Patient seen individually. Discussed the patient with Nursing staff reviewed the chart.~Reviewed interim history and current functioning. Reviewed vital signs,~Labs/ Radiology~and current medications noted below. Continue current treatment with the changes noted in the dictated addendum note Assessment: Vital Signs: Vital Signs Date Time Temp Pulse Resp B/P (MAP) Pulse Ox O2 Delivery O2 Flow Rate FiO2 11/28/17 18:23 97.8 85 18 129/58 (81) 95 11/27/17 05:58 Room Air I&O Intake and Output 11/28/17 07:00 Intake Total 840 ml Balance 840 ml Intake Oral 840 ml # Voids 1 Current Medications: Meds: Current Medications Acetaminophen (Tylenol) 650 mg PRN Q6HRS PRN PO PAIN / TEMP; Start 11/12/17 at 22:15; Stop 11/12/17 at 23:06; Status DC Al Hydroxide/Mg Hydroxide (Mylanta Plus Xs) 15 ml PRN AFTMEALHC PRN PO DYSPEPSIA; Start 11/12/17 at 22:15 Magnesium Hydroxide (Milk Of Magnesia) 2,400 mg PRN QHS PRN PO CONSTIPATION Last administered on 11/19/17at 19:55; Start 11/12/17 at 22:15 Lorazepam (Ativan) 0.5 mg TID PO Last administered on 11/14/17at 09:17; Start at 22:30; Stop 11/14/17 at 13:07; Status DC Mirtazapine (Remeron) 15 mg QHS PO Last administered on 11/28/17at 20:40; Start 11/12/17 at 22:30 Acetaminophen (Tylenol) 650 mg BID PO Last administered on 11/28/17at 20:40; Start 11/13/17 at 09:00 Acetaminophen (Tylenol) 650 mg PRN Q4HRS PRN PO PAIN / TEMP; Start 11/12/17 at 23:15 Vitamin D (Vitamin D3) 50,000 unit QTH PO Last administered on 11/28/17at 16:36 ; Start 11/14/17 at 16:00 Clopidogrel Bisulfate (Plavix) 75 mg DAILY PO Last administered on 11/28/17at 09 :00; Start 11/13/17 at 09:00 Levetiracetam (Keppra) 500 mg BID PO Last administered on 11/13/17at 08:34; Start 11/13/17 at 09:00; Stop 11/13/17 at 09:43; Status DC Levothyroxine Sodium (Synthroid) 100 mcg DAILYAC PO Last administered on at 09:17; Start 11/13/17 at 07:30; Stop 11/14/17 at 16:49; Status DC Acetaminophen/ Hydrocodone Bitart (Lortab 5/325) 1 tab PRN Q4HRS PRN PO PAIN Last administered on 11/19/17at 13:01; Start 11/12/17 at 23:15 Triamcinolone Acetonide (Kenalog) 1 jyoti PRN DAILY PRN TP ITCHING/REDNESS; Start 11/12/17 at 23:15 Multivitamins/ Minerals (I-Kevin) 1 tab DAILY PO Last administered on 11/28/17at 09:00; Start 11/13/17 at 09:00 Levetiracetam (Keppra) 500 mg BID PO Last administered on 11/28/17at 20:42; Start 11/13/17 at 10:00 Cyanocobalamin (Vitamin B-12) 1,000 mcg WEEKLY IM Last administered on at 09:29; Start 11/13/17 at 17:30 Lorazepam (Ativan) 0.5 mg BID PO ; Start 11/14/17 at 21:00; Stop 11/14/17 at 21: 00; Status DC Lorazepam (Ativan) 0.25 mg DAILY@1400 PRN PO ANXIETY / AGITATION; Start at 14:00; Stop 11/14/17 at 14:00; Status DC Lorazepam (Ativan) 0.25 mg DAILY PO Last administered on 11/23/17at 08:50; Start 11/16/17 at 09:00; Stop 11/23/17 at 09:01; Status DC Lorazepam (Ativan) 0.25 mg DAILY@1400 PO Last administered on 11/19/17at 13:00; Start 11/14/17 at 14:00; Stop 11/19/17 at 14:02; Status DC Lorazepam (Ativan) 0.5 mg QHS PO Last administered on 11/17/17 20:05; Start at 21:00; Stop 11/17/17 at 21:01; Status DC Lorazepam (Ativan) 0.25 mg QHS PO Last administered on 11/21/17 20:07; Start at 21:00; Stop 11/21/17 at 21:01; Status DC Lorazepam (Ativan) 0.5 mg DAILY PO Last administered on 11/15/17 09:43; Start 11/15/17 at 09:00; Stop 11/15/17 at 09:01; Status DC Levothyroxine Sodium (Synthroid) 100 mcg DAILY06 PO Last administered on 06:17; Start 11/15/17 at 06:00 Quetiapine Fumarate (SEROquel) 12.5 mg DAILY PO Last administered on 11/28/17 09:00; Start 11/15/17 at 09:00 Olanzapine (ZyPREXA ZYDIS) 1.25 mg PRN Q2HR PRN PO PSYCHOSIS Last administered on 11/28/17 17:14; Start 11/14/17 at 18:15 Quetiapine Fumarate (SEROquel) 6.25 mg DAILY@1300 PO Last administered on 12:42; Start 11/20/17 at 13:00 Bisacodyl (Dulcolax Supp) 10 mg PRN DAILY PRN [place] CONSTIPATION Last administered on 11/25/17 14:33; Start 11/20/17 at 19:15 Melatonin 3 mg HS PO Last administered on 11/28/17 20:40; Start 11/20/17 at 21: 00 Trazodone HCl (Desyrel) 25 mg PRN QHS PRN PO INSOMNIA, MAY REPEAT X1 Last administered on 11/22/17 21:03; Start 11/22/17 at 18:45 Polyethylene Glycol (miraLAX) 17 gm DAILY PO Last administered on 11/25/17 06: 28; Start 11/24/17 at 09:00; Stop 11/25/17 at 16:07; Status DC Quetiapine Fumarate (SEROquel) 6.25 mg DAILYBFRSUP PO Last administered on 5/10 /18at 16:36; Start 11/24/17 at 19:00 Sennosides (Senna) 8.6 mg DAILY PO Last administered on 11/28/17at 09:00; Start 11/26/17 at 09:00 Active Scripts Active Reported D3-50 (Cholecalciferol (Vitamin D3)) 50,000 Unit Capsule 50,000 Unit PO QTH Vicodin 5-300 Mg Tablet (Hydrocodone Bit/Acetaminophen) 1 Each Tablet 1 Tab PO PRN Q4HRS PRN Tylenol (Acetaminophen) 325 Mg Tablet 650 Mg PO BID Tylenol (Acetaminophen) 325 Mg Tablet 650 Mg PO PRN Q4HRS PRN Triamcinolone Acetonide 15 Gm Cream..g. 1 Gm TP PRN DAILY PRN Remeron (Mirtazapine) 15 Mg Tablet 7.5 Mg PO QHS Preservision Areds Softgel (Vit A/Vit C/Vit E/Zinc/Copper) 1 Each Capsule 1 Cap PO DAILY Lorazepam 0.5 Mg Tablet 0.5 Mg PO TID Levothyroxine Sodium 100 Mcg Tablet 100 Mcg PO DAILYAC Keppra (Levetiracetam) 500 Mg Tablet 500 Mg PO BID Clopidogrel (Clopidogrel Bisulfate) 75 Mg Tablet 75 Mg PO DAILY I have reviewed the current psychotropics carefully including drug interactions. Risk benefit ratio favors no change other than as noted in my dictated progress note. Diagnosis: Problems: (1) Dementia (2) Combative behavior (3) Anxiety disorder (4) Dementia in Alzheimer's disease with delusions (5) Dementia in Alzheimer's disease with depression (6) Dementia, vascular, with delusions (7) Dementia, vascular, with depression (8) Impulse control disorder (9) Psychosis, atypical AYSHA SEPULVEDA MD November 28, 2017 20:58
[2017-11-29 05:42] VITALS: BP 99/61
[2017-11-29] MEDS: LEVOTHYROXINE 100 MCG TABLET PO SCH (05:51)
[2017-11-29] MEDS: CLOPIDOGREL BISULFATE 75 MG TABLET PO SCH (07:44)
[2017-11-29] MEDS: MULTIVITAMIN I-VITE TABLET. PO SCH (07:44)
[2017-11-29] MEDS: SENNOSIDES 8.6 MG TABLET PO SCH (07:45)
[2017-11-29] MEDS: ACETAMINOPHEN 325 MG TABLET PO SCH ×2 (07:45→20:15)
[2017-11-29] MEDS: QUEtiapine 25 MG TABLET. PO SCH ×4 (07:45→18:47)
[2017-11-29 16:44] VITALS: BP 112/57
[2017-11-29] MEDS: MIRTAZAPINE 15 MG TABLET PO SCH (20:15)
[2017-11-29] MEDS: MELATONIN 3 MG TABLET PO SCH (20:15)
--- NOTE | 2017-11-29 20:54 | PDOC ---
Exam Note: Slava Note: Please also refer to the separate dictated note~for this date of service dictated separately.~Patient seen individually. Discussed the patient with Nursing staff reviewed the chart.~Reviewed interim history and current functioning. Reviewed vital signs,~Labs/ Radiology~and current medications noted below. Continue current treatment with the changes noted in the dictated addendum note Assessment: Vital Signs: Vital Signs Date Time Temp Pulse Resp B/P (MAP) Pulse Ox O2 Delivery O2 Flow Rate FiO2 11/29/17 16:44 97.1 94 18 112/57 (75) 95 11/27/17 05:58 Room Air I&O Intake and Output 11/29/17 07:00 Intake Total 360 ml Balance 360 ml Intake Oral 360 ml Current Medications: Meds: Current Medications Acetaminophen (Tylenol) 650 mg PRN Q6HRS PRN PO PAIN / TEMP; Start 11/12/17 at 22:15; Stop 11/12/17 at 23:06; Status DC Al Hydroxide/Mg Hydroxide (Mylanta Plus Xs) 15 ml PRN AFTMEALHC PRN PO DYSPEPSIA; Start 11/12/17 at 22:15 Magnesium Hydroxide (Milk Of Magnesia) 2,400 mg PRN QHS PRN PO CONSTIPATION Last administered on 11/19/17at 19:55; Start 11/12/17 at 22:15 Lorazepam (Ativan) 0.5 mg TID PO Last administered on 11/14/17at 09:17; Start at 22:30; Stop 11/14/17 at 13:07; Status DC Mirtazapine (Remeron) 15 mg QHS PO Last administered on 11/29/17at 20:15; Start 11/12/17 at 22:30 Acetaminophen (Tylenol) 650 mg BID PO Last administered on 11/29/17at 20:15; Start 11/13/17 at 09:00 Acetaminophen (Tylenol) 650 mg PRN Q4HRS PRN PO PAIN / TEMP; Start 11/12/17 at 23:15 Vitamin D (Vitamin D3) 50,000 unit QTH PO Last administered on 11/28/17at 16:36 ; Start 11/14/17 at 16:00 Clopidogrel Bisulfate (Plavix) 75 mg DAILY PO Last administered on 11/29/17at 07 :44; Start 11/13/17 at 09:00 Levetiracetam (Keppra) 500 mg BID PO Last administered on 11/13/17at 08:34; Start 11/13/17 at 09:00; Stop 11/13/17 at 09:43; Status DC Levothyroxine Sodium (Synthroid) 100 mcg DAILYAC PO Last administered on at 09:17; Start 11/13/17 at 07:30; Stop 11/14/17 at 16:49; Status DC Acetaminophen/ Hydrocodone Bitart (Lortab 5/325) 1 tab PRN Q4HRS PRN PO PAIN Last administered on 11/19/17at 13:01; Start 11/12/17 at 23:15 Triamcinolone Acetonide (Kenalog) 1 jyoti PRN DAILY PRN TP ITCHING/REDNESS; Start 11/12/17 at 23:15 Multivitamins/ Minerals (I-Kevin) 1 tab DAILY PO Last administered on 11/29/17at 07:44; Start 11/13/17 at 09:00 Levetiracetam (Keppra) 500 mg BID PO Last administered on 11/29/17at 20:15; Start 11/13/17 at 10:00 Cyanocobalamin (Vitamin B-12) 1,000 mcg WEEKLY IM Last administered on at 09:29; Start 11/13/17 at 17:30 Lorazepam (Ativan) 0.5 mg BID PO ; Start 11/14/17 at 21:00; Stop 11/14/17 at 21: 00; Status DC Lorazepam (Ativan) 0.25 mg DAILY@1400 PRN PO ANXIETY / AGITATION; Start at 14:00; Stop 11/14/17 at 14:00; Status DC Lorazepam (Ativan) 0.25 mg DAILY PO Last administered on 11/23/17at 08:50; Start 11/16/17 at 09:00; Stop 11/23/17 at 09:01; Status DC Lorazepam (Ativan) 0.25 mg DAILY@1400 PO Last administered on 11/19/17at 13:00; Start 11/14/17 at 14:00; Stop 11/19/17 at 14:02; Status DC Lorazepam (Ativan) 0.5 mg QHS PO Last administered on 11/17/17 20:05; Start at 21:00; Stop 11/17/17 at 21:01; Status DC Lorazepam (Ativan) 0.25 mg QHS PO Last administered on 11/21/17 20:07; Start at 21:00; Stop 11/21/17 at 21:01; Status DC Lorazepam (Ativan) 0.5 mg DAILY PO Last administered on 11/15/17 09:43; Start 11/15/17 at 09:00; Stop 11/15/17 at 09:01; Status DC Levothyroxine Sodium (Synthroid) 100 mcg DAILY06 PO Last administered on 05:51; Start 11/15/17 at 06:00 Quetiapine Fumarate (SEROquel) 12.5 mg DAILY PO Last administered on 11/29/17 07:45; Start 11/15/17 at 09:00 Olanzapine (ZyPREXA ZYDIS) 1.25 mg PRN Q2HR PRN PO PSYCHOSIS Last administered on 11/28/17 17:14; Start 11/14/17 at 18:15 Quetiapine Fumarate (SEROquel) 6.25 mg DAILY@1300 PO Last administered on 13:21; Start 11/20/17 at 13:00 Bisacodyl (Dulcolax Supp) 10 mg PRN DAILY PRN [place] CONSTIPATION Last administered on 11/25/17 14:33; Start 11/20/17 at 19:15 Melatonin 3 mg HS PO Last administered on 11/29/17 20:15; Start 11/20/17 at 21: 00 Trazodone HCl (Desyrel) 25 mg PRN QHS PRN PO INSOMNIA, MAY REPEAT X1 Last administered on 11/22/17 21:03; Start 11/22/17 at 18:45 Polyethylene Glycol (miraLAX) 17 gm DAILY PO Last administered on 11/25/17 06: 28; Start 11/24/17 at 09:00; Stop 11/25/17 at 16:07; Status DC Quetiapine Fumarate (SEROquel) 6.25 mg DAILYBFRSUP PO Last administered on 11/28at 16:36; Start 11/24/17 at 19:00 Sennosides (Senna) 8.6 mg DAILY PO Last administered on 11/29/17at 07:45; Start 11/26/17 at 09:00 Active Scripts Active Reported D3-50 (Cholecalciferol (Vitamin D3)) 50,000 Unit Capsule 50,000 Unit PO QTH Vicodin 5-300 Mg Tablet (Hydrocodone Bit/Acetaminophen) 1 Each Tablet 1 Tab PO PRN Q4HRS PRN Tylenol (Acetaminophen) 325 Mg Tablet 650 Mg PO BID Tylenol (Acetaminophen) 325 Mg Tablet 650 Mg PO PRN Q4HRS PRN Triamcinolone Acetonide 15 Gm Cream..g. 1 Gm TP PRN DAILY PRN Remeron (Mirtazapine) 15 Mg Tablet 7.5 Mg PO QHS Preservision Areds Softgel (Vit A/Vit C/Vit E/Zinc/Copper) 1 Each Capsule 1 Cap PO DAILY Lorazepam 0.5 Mg Tablet 0.5 Mg PO TID Levothyroxine Sodium 100 Mcg Tablet 100 Mcg PO DAILYAC Keppra (Levetiracetam) 500 Mg Tablet 500 Mg PO BID Clopidogrel (Clopidogrel Bisulfate) 75 Mg Tablet 75 Mg PO DAILY I have reviewed the current psychotropics carefully including drug interactions. Risk benefit ratio favors no change other than as noted in my dictated progress note. Diagnosis: Problems: (1) Dementia (2) Combative behavior (3) Anxiety disorder (4) Dementia in Alzheimer's disease with delusions (5) Dementia in Alzheimer's disease with depression (6) Dementia, vascular, with delusions (7) Dementia, vascular, with depression (8) Impulse control disorder (9) Psychosis, atypical AYSHA SEPULVEDA MD November 29, 2017 20:54
[2017-11-30] MEDS: LEVOTHYROXINE 100 MCG TABLET PO SCH (05:20)
[2017-11-30 06:27] VITALS: BP 109/53
[2017-11-30] MEDS: ACETAMINOPHEN 325 MG TABLET PO SCH ×2 (08:07→20:05)
[2017-11-30] MEDS: SENNOSIDES 8.6 MG TABLET PO SCH (08:07)
[2017-11-30] MEDS: CLOPIDOGREL BISULFATE 75 MG TABLET PO SCH (08:07)
[2017-11-30] MEDS: QUEtiapine 25 MG TABLET. PO SCH ×3 (08:07→17:00)
[2017-11-30] MEDS: MULTIVITAMIN I-VITE TABLET. PO SCH (08:07)
--- NOTE | 2017-11-30 12:37 | PN ---
DATE: 11/28/2017 PSYCHIATRIC PROGRESS NOTE This is a late entry 11/28/2017, covers elements not covered in my initial note. SUBJECTIVE: I met with the patient in the evening. Staffed it with the entire team in the morning and the patient's son, Celestino attended the conference in the morning. He gets a little delusional at times, restless, anxious, but better than before, especially in the morning, but by the evening, he was quite agitated, yelling, labile, sleeping about 5-1/2 hours. Appetite 70%, takes his medications whole. REVIEW OF SYSTEMS: Ambulation impaired, in a wheelchair. No CV, , pulmonary, eye system symptoms on review. Reliability poor. MENTAL STATUS EXAM: Oriented to himself. Insight, judgment, recent and remote memory, attention, concentration, fund of knowledge poor, consistent with his diagnoses mentioned in my initial note. PLAN: Continue current psychotropics, may need to increase Seroquel further if agitation, lability, yelling, screaming persists. MAN Rosas SEPULVEDA MD DR: CHASE/wally JOB#: [id number] / [id number]
--- NOTE | 2017-11-30 12:40 | PN ---
DATE: 11/27/2017 PSYCHIATRIC PROGRESS NOTE This late entry 11/27/2017 covers elements not covered in my initial note of 11/27/2017. SUBJECTIVE: Met with the patient in the evening. The patient slept 6 hours previous evening, restless redirected, feeding himself, told the staff he wanted to go to the bathroom. REVIEW OF SYSTEMS: Ambulation impaired, in Broda chair. No CV, , pulmonary, eye system symptoms on review. Reliability is poor. MENTAL STATUS EXAM: Oriented to himself. Insight, judgment, recent and remote memory, attention, concentration, fund of knowledge is poor, consistent with his diagnoses mentioned in my initial note. PLAN: No change from initial note. MAN Rosas SEPULVEDA MD DR: CHASE/wally JOB#: [id number] / [id number]
[2017-11-30 16:11] VITALS: BP 107/65
[2017-11-30] MEDS: MIRTAZAPINE 15 MG TABLET PO SCH (20:05)
[2017-11-30] MEDS: MELATONIN 3 MG TABLET PO SCH (20:05)
--- NOTE | 2017-11-30 22:58 | PDOC ---
Exam Note: Slava Note: Please also refer to the separate dictated note~for this date of service dictated separately.~Patient seen individually. Discussed the patient with Nursing staff reviewed the chart.~Reviewed interim history and current functioning. Reviewed vital signs,~Labs/ Radiology~and current medications noted below. Continue current treatment with the changes noted in the dictated addendum note Assessment: Vital Signs: Vital Signs Date Time Temp Pulse Resp B/P (MAP) Pulse Ox O2 Delivery O2 Flow Rate FiO2 11/30/17 16:11 98.1 94 16 107/65 (79) 97 11/27/17 05:58 Room Air I&O Intake and Output 11/30/17 07:00 Intake Total 1080 ml Balance 1080 ml Intake Oral 1080 ml # Voids 1 Labs: Laboratory Tests Test 11/30/17 07:53 Glucose (Fingerstick) 76 mg/dL (70-99) Current Medications: Meds: Current Medications Acetaminophen (Tylenol) 650 mg PRN Q6HRS PRN PO PAIN / TEMP; Start 11/12/17 at 22:15; Stop 11/12/17 at 23:06; Status DC Al Hydroxide/Mg Hydroxide (Mylanta Plus Xs) 15 ml PRN AFTMEALHC PRN PO DYSPEPSIA; Start 11/12/17 at 22:15 Magnesium Hydroxide (Milk Of Magnesia) 2,400 mg PRN QHS PRN PO CONSTIPATION Last administered on 11/19/17at 19:55; Start 11/12/17 at 22:15 Lorazepam (Ativan) 0.5 mg TID PO Last administered on 11/14/17at 09:17; Start at 22:30; Stop 11/14/17 at 13:07; Status DC Mirtazapine (Remeron) 15 mg QHS PO Last administered on 11/30/17at 20:05; Start 11/12/17 at 22:30 Acetaminophen (Tylenol) 650 mg BID PO Last administered on 11/30/17at 20:05; Start 11/13/17 at 09:00 Acetaminophen (Tylenol) 650 mg PRN Q4HRS PRN PO PAIN / TEMP; Start 11/12/17 at 23:15 Vitamin D (Vitamin D3) 50,000 unit QTH PO Last administered on 11/28/17at 16:36 ; Start 11/14/17 at 16:00 Clopidogrel Bisulfate (Plavix) 75 mg DAILY PO Last administered on 11/30/17 08 :07; Start 11/13/17 at 09:00 Levetiracetam (Keppra) 500 mg BID PO Last administered on 11/13/17at 08:34; Start 11/13/17 at 09:00; Stop 11/13/17 at 09:43; Status DC Levothyroxine Sodium (Synthroid) 100 mcg DAILYAC PO Last administered on 09:17; Start 11/13/17 at 07:30; Stop 11/14/17 at 16:49; Status DC Acetaminophen/ Hydrocodone Bitart (Lortab 5/325) 1 tab PRN Q4HRS PRN PO PAIN Last administered on 11/19/17 13:01; Start 11/12/17 at 23:15 Triamcinolone Acetonide (Kenalog) 1 jyoti PRN DAILY PRN TP ITCHING/REDNESS; Start 11/12/17 at 23:15 Multivitamins/ Minerals (I-Kevin) 1 tab DAILY PO Last administered on 11/30/17at 08:07; Start 11/13/17 at 09:00 Levetiracetam (Keppra) 500 mg BID PO Last administered on 11/30/17at 20:06; Start 11/13/17 at 10:00 Cyanocobalamin (Vitamin B-12) 1,000 mcg WEEKLY IM Last administered on at 09:29; Start 11/13/17 at 17:30 Lorazepam (Ativan) 0.5 mg BID PO ; Start 11/14/17 at 21:00; Stop 11/14/17 at 21: 00; Status DC Lorazepam (Ativan) 0.25 mg DAILY@1400 PRN PO ANXIETY / AGITATION; Start at 14:00; Stop 11/14/17 at 14:00; Status DC Lorazepam (Ativan) 0.25 mg DAILY PO Last administered on 11/23/17at 08:50; Start 11/16/17 at 09:00; Stop 11/23/17 at 09:01; Status DC Lorazepam (Ativan) 0.25 mg DAILY@1400 PO Last administered on 11/19/17at 13:00; Start 11/14/17 at 14:00; Stop 11/19/17 at 14:02; Status DC Lorazepam (Ativan) 0.5 mg QHS PO Last administered on 11/17/17 20:05; Start at 21:00; Stop 11/17/17 at 21:01; Status DC Lorazepam (Ativan) 0.25 mg QHS PO Last administered on 11/21/17 20:07; Start at 21:00; Stop 11/21/17 at 21:01; Status DC Lorazepam (Ativan) 0.5 mg DAILY PO Last administered on 11/15/17 09:43; Start 11/15/17 at 09:00; Stop 11/15/17 at 09:01; Status DC Levothyroxine Sodium (Synthroid) 100 mcg DAILY06 PO Last administered on 05:20; Start 11/15/17 at 06:00 Quetiapine Fumarate (SEROquel) 12.5 mg DAILY PO Last administered on 11/30/17 08:07; Start 11/15/17 at 09:00; Stop 11/30/17 at 20:29; Status DC Olanzapine (ZyPREXA ZYDIS) 1.25 mg PRN Q2HR PRN PO PSYCHOSIS Last administered on 11/28/17 17:14; Start 11/14/17 at 18:15 Quetiapine Fumarate (SEROquel) 6.25 mg DAILY@1300 PO Last administered on 14:07; Start 11/20/17 at 13:00; Stop 11/30/17 at 20:29; Status DC Bisacodyl (Dulcolax Supp) 10 mg PRN DAILY PRN IN CONSTIPATION Last administered on 11/25/17 14:33; Start 11/20/17 at 19:15 Melatonin 3 mg HS PO Last administered on 11/30/17 20:05; Start 11/20/17 at 21: 00 Trazodone HCl (Desyrel) 25 mg PRN QHS PRN PO INSOMNIA, MAY REPEAT X1 Last administered on 11/22/17 21:03; Start 11/22/17 at 18:45 Polyethylene Glycol (miraLAX) 17 gm DAILY PO Last administered on 5/7/18at 06: 28; Start 11/24/17 at 09:00; Stop 11/25/17 at 16:07; Status DC Quetiapine Fumarate (SEROquel) 6.25 mg DAILYBFRSUP PO Last administered on 11/30at 17:00; Start 11/24/17 at 19:00; Stop 11/30/17 at 20:32; Status DC Sennosides (Senna) 8.6 mg DAILY PO Last administered on 11/30/17at 08:07; Start 11/26/17 at 09:00 Quetiapine Fumarate (SEROquel) 12.5 mg TIDWMEALS PO ; Start 12/01/17 at 08:00 Active Scripts Active Reported D3-50 (Cholecalciferol (Vitamin D3)) 50,000 Unit Capsule 50,000 Unit PO QTH Vicodin 5-300 Mg Tablet (Hydrocodone Bit/Acetaminophen) 1 Each Tablet 1 Tab PO PRN Q4HRS PRN Tylenol (Acetaminophen) 325 Mg Tablet 650 Mg PO BID Tylenol (Acetaminophen) 325 Mg Tablet 650 Mg PO PRN Q4HRS PRN Triamcinolone Acetonide 15 Gm Cream..g. 1 Gm TP PRN DAILY PRN Remeron (Mirtazapine) 15 Mg Tablet 7.5 Mg PO QHS Preservision Areds Softgel (Vit A/Vit C/Vit E/Zinc/Copper) 1 Each Capsule 1 Cap PO DAILY Lorazepam 0.5 Mg Tablet 0.5 Mg PO TID Levothyroxine Sodium 100 Mcg Tablet 100 Mcg PO DAILYAC Keppra (Levetiracetam) 500 Mg Tablet 500 Mg PO BID Clopidogrel (Clopidogrel Bisulfate) 75 Mg Tablet 75 Mg PO DAILY I have reviewed the current psychotropics carefully including drug interactions. Risk benefit ratio favors no change other than as noted in my dictated progress note. Diagnosis: Problems: (1) Dementia (2) Combative behavior (3) Anxiety disorder (4) Dementia in Alzheimer's disease with delusions (5) Dementia in Alzheimer's disease with depression (6) Dementia, vascular, with delusions (7) Dementia, vascular, with depression (8) Impulse control disorder (9) Psychosis, atypical AYSHA SEPULVEDA MD November 30, 2017 22:58
[2017-12-01 05:17] VITALS: BP 111/61
[2017-12-01] MEDS: MAGNESIUM HYDROXIDE 2,400 MG/30 ML ORAL.SUSP. PO PRN (05:33)
[2017-12-01] MEDS: LEVOTHYROXINE 100 MCG TABLET PO SCH (05:33)
[2017-12-01] MEDS: ACETAMINOPHEN 325 MG TABLET PO SCH ×2 (08:10→21:02)
[2017-12-01] MEDS: MULTIVITAMIN I-VITE TABLET. PO SCH (08:10)
[2017-12-01] MEDS: SENNOSIDES 8.6 MG TABLET PO SCH (08:10)
[2017-12-01] MEDS: CLOPIDOGREL BISULFATE 75 MG TABLET PO SCH (08:11)
[2017-12-01] MEDS: QUEtiapine 25 MG TABLET. PO SCH ×3 (08:13→17:00)
[2017-12-01 16:52] VITALS: BP 97/50
[2017-12-01] MEDS: QUEtiapine 50 MG TABLET. PO SCH (18:00)
--- NOTE | 2017-12-01 20:56 | PDOC ---
Exam Note: Slava Note: Please also refer to the separate dictated note~for this date of service dictated separately.~Patient seen individually. Discussed the patient with Nursing staff reviewed the chart.~Reviewed interim history and current functioning. Reviewed vital signs,~Labs/ Radiology~and current medications noted below. Continue current treatment with the changes noted in the dictated addendum note Assessment: Vital Signs: Vital Signs Date Time Temp Pulse Resp B/P (MAP) Pulse Ox O2 Delivery O2 Flow Rate FiO2 12/01/17 16:52 98.0 84 19 97/50 (66) 100 11/27/17 05:58 Room Air I&O Intake and Output 12/01/17 07:00 Intake Total 960 ml Balance 960 ml Intake Oral 960 ml Current Medications: Meds: Current Medications Acetaminophen (Tylenol) 650 mg PRN Q6HRS PRN PO PAIN / TEMP; Start 11/12/17 at 22:15; Stop 11/12/17 at 23:06; Status DC Al Hydroxide/Mg Hydroxide (Mylanta Plus Xs) 15 ml PRN AFTMEALHC PRN PO DYSPEPSIA; Start 11/12/17 at 22:15 Magnesium Hydroxide (Milk Of Magnesia) 2,400 mg PRN QHS PRN PO CONSTIPATION Last administered on 12/01/17at 05:33; Start 11/12/17 at 22:15 Lorazepam (Ativan) 0.5 mg TID PO Last administered on 11/14/17at 09:17; Start at 22:30; Stop 11/14/17 at 13:07; Status DC Mirtazapine (Remeron) 15 mg QHS PO Last administered on 11/30/17at 20:05; Start 11/12/17 at 22:30 Acetaminophen (Tylenol) 650 mg BID PO Last administered on 12/01/17at 08:10; Start 11/13/17 at 09:00 Acetaminophen (Tylenol) 650 mg PRN Q4HRS PRN PO PAIN / TEMP; Start 11/12/17 at 23:15 Vitamin D (Vitamin D3) 50,000 unit QTH PO Last administered on 11/28/17at 16:36 ; Start 11/14/17 at 16:00 Clopidogrel Bisulfate (Plavix) 75 mg DAILY PO Last administered on 12/01/17at 08 :11; Start 11/13/17 at 09:00 Levetiracetam (Keppra) 500 mg BID PO Last administered on 11/13/17at 08:34; Start 11/13/17 at 09:00; Stop 11/13/17 at 09:43; Status DC Levothyroxine Sodium (Synthroid) 100 mcg DAILYAC PO Last administered on at 09:17; Start 11/13/17 at 07:30; Stop 11/14/17 at 16:49; Status DC Acetaminophen/ Hydrocodone Bitart (Lortab 5/325) 1 tab PRN Q4HRS PRN PO PAIN Last administered on 11/19/17at 13:01; Start 11/12/17 at 23:15 Triamcinolone Acetonide (Kenalog) 1 jyoti PRN DAILY PRN TP ITCHING/REDNESS; Start 11/12/17 at 23:15 Multivitamins/ Minerals (I-Kevin) 1 tab DAILY PO Last administered on 12/01/17at 08:10; Start 11/13/17 at 09:00 Levetiracetam (Keppra) 500 mg BID PO Last administered on 12/01/17at 08:11; Start 11/13/17 at 10:00 Cyanocobalamin (Vitamin B-12) 1,000 mcg WEEKLY IM Last administered on at 09:29; Start 11/13/17 at 17:30 Lorazepam (Ativan) 0.5 mg BID PO ; Start 11/14/17 at 21:00; Stop 11/14/17 at 21: 00; Status DC Lorazepam (Ativan) 0.25 mg DAILY@1400 PRN PO ANXIETY / AGITATION; Start at 14:00; Stop 11/14/17 at 14:00; Status DC Lorazepam (Ativan) 0.25 mg DAILY PO Last administered on 11/23/17at 08:50; Start 11/16/17 at 09:00; Stop 11/23/17 at 09:01; Status DC Lorazepam (Ativan) 0.25 mg DAILY@1400 PO Last administered on 11/19/17at 13:00; Start 11/14/17 at 14:00; Stop 11/19/17 at 14:02; Status DC Lorazepam (Ativan) 0.5 mg QHS PO Last administered on 11/17/17 20:05; Start at 21:00; Stop 11/17/17 at 21:01; Status DC Lorazepam (Ativan) 0.25 mg QHS PO Last administered on 11/21/17 20:07; Start at 21:00; Stop 11/21/17 at 21:01; Status DC Lorazepam (Ativan) 0.5 mg DAILY PO Last administered on 11/15/17 09:43; Start 11/15/17 at 09:00; Stop 11/15/17 at 09:01; Status DC Levothyroxine Sodium (Synthroid) 100 mcg DAILY06 PO Last administered on 05:33; Start 11/15/17 at 06:00 Quetiapine Fumarate (SEROquel) 12.5 mg DAILY PO Last administered on 11/30/17 08:07; Start 11/15/17 at 09:00; Stop 11/30/17 at 20:29; Status DC Olanzapine (ZyPREXA ZYDIS) 1.25 mg PRN Q2HR PRN PO PSYCHOSIS Last administered on 12/01/17 17:38; Start 11/14/17 at 18:15 Quetiapine Fumarate (SEROquel) 6.25 mg DAILY@1300 PO Last administered on 14:07; Start 11/20/17 at 13:00; Stop 11/30/17 at 20:29; Status DC Bisacodyl (Dulcolax Supp) 10 mg PRN DAILY PRN IN CONSTIPATION Last administered on 11/25/17 14:33; Start 11/20/17 at 19:15 Melatonin 3 mg HS PO Last administered on 11/30/17 20:05; Start 11/20/17 at 21: 00 Trazodone HCl (Desyrel) 25 mg PRN QHS PRN PO INSOMNIA, MAY REPEAT X1 Last administered on 11/22/17 21:03; Start 11/22/17 at 18:45 Polyethylene Glycol (miraLAX) 17 gm DAILY PO Last administered on 11/25/17 06: 28; Start 11/24/17 at 09:00; Stop 11/25/17 at 16:07; Status DC Quetiapine Fumarate (SEROquel) 6.25 mg DAILYBFRSUP PO Last administered on 11/30at 17:00; Start 11/24/17 at 19:00; Stop 11/30/17 at 20:32; Status DC Sennosides (Senna) 8.6 mg DAILY PO Last administered on 12/01/17at 08:10; Start 11/26/17 at 09:00 Quetiapine Fumarate (SEROquel) 12.5 mg TIDWMEALS PO Last administered on at 08:13; Start 12/01/17 at 08:00 Quetiapine Fumarate (SEROquel) 12.5 mg TIDWMEALS PO Last administered on at 18:00; Start 12/01/17 at 18:00; Stop 12/02/17 at 12:01 Active Scripts Active Reported D3-50 (Cholecalciferol (Vitamin D3)) 50,000 Unit Capsule 50,000 Unit PO QTH Vicodin 5-300 Mg Tablet (Hydrocodone Bit/Acetaminophen) 1 Each Tablet 1 Tab PO PRN Q4HRS PRN Tylenol (Acetaminophen) 325 Mg Tablet 650 Mg PO BID Tylenol (Acetaminophen) 325 Mg Tablet 650 Mg PO PRN Q4HRS PRN Triamcinolone Acetonide 15 Gm Cream..g. 1 Gm TP PRN DAILY PRN Remeron (Mirtazapine) 15 Mg Tablet 7.5 Mg PO QHS Preservision Areds Softgel (Vit A/Vit C/Vit E/Zinc/Copper) 1 Each Capsule 1 Cap PO DAILY Lorazepam 0.5 Mg Tablet 0.5 Mg PO TID Levothyroxine Sodium 100 Mcg Tablet 100 Mcg PO DAILYAC Keppra (Levetiracetam) 500 Mg Tablet 500 Mg PO BID Clopidogrel (Clopidogrel Bisulfate) 75 Mg Tablet 75 Mg PO DAILY I have reviewed the current psychotropics carefully including drug interactions. Risk benefit ratio favors no change other than as noted in my dictated progress note. Diagnosis: Problems: (1) Dementia (2) Combative behavior (3) Anxiety disorder (4) Dementia in Alzheimer's disease with delusions (5) Dementia in Alzheimer's disease with depression (6) Dementia, vascular, with delusions (7) Dementia, vascular, with depression (8) Impulse control disorder (9) Psychosis, atypical DERICK,MAN M MD December 01, 2017 20:56
[2017-12-01] MEDS: MIRTAZAPINE 15 MG TABLET PO SCH (21:02)
[2017-12-01] MEDS: MELATONIN 3 MG TABLET PO SCH (21:02)
--- NOTE | 2017-12-01 23:30 | PN ---
DATE: 11/29/2017 This is a late entry of 11/29/2017 covers elements not covered in my initial note of 11/29/2017. SUBJECTIVE: I met with the patient in the evening. The patient has done little better. Last dosage of Seroquel was held since he was sedated. No yelling during the day. REVIEW OF SYSTEMS: No CV, , pulmonary, eye, ENT system symptoms on review. Reliability poor. Gait unsteady. MENTAL STATUS EXAM: Oriented to herself. Insight, judgment, recent and remote memory, attention, concentration, fund of knowledge poor, consistent with his diagnosis mentioned in my initial note. PLAN: Continue current psychotropics. MAN Rosas SEPULVEDA MD DR: CHASE/wally JOB#: [id number] / [id number]
[2017-12-02 05:56] VITALS: BP 105/61
[2017-12-02] MEDS: LEVOTHYROXINE 100 MCG TABLET PO SCH (06:06)
[2017-12-02] MEDS: QUEtiapine 25 MG TABLET. PO SCH ×3 (08:00→17:07)
[2017-12-02] MEDS: CLOPIDOGREL BISULFATE 75 MG TABLET PO SCH (09:01)
[2017-12-02] MEDS: QUEtiapine 50 MG TABLET. PO SCH (09:02)
[2017-12-02] MEDS: MULTIVITAMIN I-VITE TABLET. PO SCH (09:03)
[2017-12-02] MEDS: SENNOSIDES 8.6 MG TABLET PO SCH (09:03)
[2017-12-02] MEDS: ACETAMINOPHEN 325 MG TABLET PO SCH ×2 (09:03→20:55)
[2017-12-02 15:55] VITALS: BP 98/61
[2017-12-02] MEDS: MIRTAZAPINE 15 MG TABLET PO SCH (20:55)
[2017-12-02] MEDS: MELATONIN 3 MG TABLET PO SCH (20:55)
--- NOTE | 2017-12-02 20:56 | PDOC ---
Exam Note: Slava Note: Please also refer to the separate dictated note~for this date of service dictated separately.~Patient seen individually. Discussed the patient with Nursing staff reviewed the chart.~Reviewed interim history and current functioning. Reviewed vital signs,~Labs/ Radiology~and current medications noted below. Continue current treatment with the changes noted in the dictated addendum note Assessment: Vital Signs: Vital Signs Date Time Temp Pulse Resp B/P (MAP) Pulse Ox O2 Delivery O2 Flow Rate FiO2 12/02/17 15:55 97.8 83 16 98/61 (73) 98 11/27/17 05:58 Room Air I&O Intake and Output 12/02/17 07:00 Intake Total 600 ml Balance 600 ml Intake Oral 600 ml Current Medications: Meds: Current Medications Acetaminophen (Tylenol) 650 mg PRN Q6HRS PRN PO PAIN / TEMP; Start 11/12/17 at 22:15; Stop 11/12/17 at 23:06; Status DC Al Hydroxide/Mg Hydroxide (Mylanta Plus Xs) 15 ml PRN AFTMEALHC PRN PO DYSPEPSIA; Start 11/12/17 at 22:15 Magnesium Hydroxide (Milk Of Magnesia) 2,400 mg PRN QHS PRN PO CONSTIPATION Last administered on 12/01/17at 05:33; Start 11/12/17 at 22:15 Lorazepam (Ativan) 0.5 mg TID PO Last administered on 11/14/17at 09:17; Start at 22:30; Stop 11/14/17 at 13:07; Status DC Mirtazapine (Remeron) 15 mg QHS PO Last administered on 12/01/17at 21:02; Start 11/12/17 at 22:30 Acetaminophen (Tylenol) 650 mg BID PO Last administered on 12/02/17at 09:03; Start 11/13/17 at 09:00 Acetaminophen (Tylenol) 650 mg PRN Q4HRS PRN PO PAIN / TEMP; Start 11/12/17 at 23:15 Vitamin D (Vitamin D3) 50,000 unit QTH PO Last administered on 11/28/17at 16:36 ; Start 11/14/17 at 16:00 Clopidogrel Bisulfate (Plavix) 75 mg DAILY PO Last administered on 12/02/17at 09 :01; Start 11/13/17 at 09:00 Levetiracetam (Keppra) 500 mg BID PO Last administered on 11/13/17at 08:34; Start 11/13/17 at 09:00; Stop 11/13/17 at 09:43; Status DC Levothyroxine Sodium (Synthroid) 100 mcg DAILYAC PO Last administered on at 09:17; Start 11/13/17 at 07:30; Stop 11/14/17 at 16:49; Status DC Acetaminophen/ Hydrocodone Bitart (Lortab 5/325) 1 tab PRN Q4HRS PRN PO PAIN Last administered on 11/19/17at 13:01; Start 11/12/17 at 23:15 Triamcinolone Acetonide (Kenalog) 1 jyoti PRN DAILY PRN TP ITCHING/REDNESS; Start 11/12/17 at 23:15 Multivitamins/ Minerals (I-Kevin) 1 tab DAILY PO Last administered on 12/02/17at 09:03; Start 11/13/17 at 09:00 Levetiracetam (Keppra) 500 mg BID PO Last administered on 12/02/17at 09:03; Start 11/13/17 at 10:00 Cyanocobalamin (Vitamin B-12) 1,000 mcg WEEKLY IM Last administered on at 09:29; Start 11/13/17 at 17:30 Lorazepam (Ativan) 0.5 mg BID PO ; Start 11/14/17 at 21:00; Stop 11/14/17 at 21: 00; Status DC Lorazepam (Ativan) 0.25 mg DAILY@1400 PRN PO ANXIETY / AGITATION; Start at 14:00; Stop 11/14/17 at 14:00; Status DC Lorazepam (Ativan) 0.25 mg DAILY PO Last administered on 11/23/17at 08:50; Start 11/16/17 at 09:00; Stop 11/23/17 at 09:01; Status DC Lorazepam (Ativan) 0.25 mg DAILY@1400 PO Last administered on 11/19/17at 13:00; Start 11/14/17 at 14:00; Stop 11/19/17 at 14:02; Status DC Lorazepam (Ativan) 0.5 mg QHS PO Last administered on 11/17/17 20:05; Start at 21:00; Stop 11/17/17 at 21:01; Status DC Lorazepam (Ativan) 0.25 mg QHS PO Last administered on 11/21/17 20:07; Start at 21:00; Stop 11/21/17 at 21:01; Status DC Lorazepam (Ativan) 0.5 mg DAILY PO Last administered on 11/15/17at 09:43; Start 11/15/17 at 09:00; Stop 11/15/17 at 09:01; Status DC Levothyroxine Sodium (Synthroid) 100 mcg DAILY06 PO Last administered on 06:06; Start 11/15/17 at 06:00 Quetiapine Fumarate (SEROquel) 12.5 mg DAILY PO Last administered on 11/30/17 08:07; Start 11/15/17 at 09:00; Stop 11/30/17 at 20:29; Status DC Olanzapine (ZyPREXA ZYDIS) 1.25 mg PRN Q2HR PRN PO PSYCHOSIS Last administered on 12/02/17 12:19; Start 11/14/17 at 18:15 Quetiapine Fumarate (SEROquel) 6.25 mg DAILY@1300 PO Last administered on 14:07; Start 11/20/17 at 13:00; Stop 11/30/17 at 20:29; Status DC Bisacodyl (Dulcolax Supp) 10 mg PRN DAILY PRN [place] CONSTIPATION Last administered on 11/25/17at 14:33; Start 11/20/17 at 19:15 Melatonin 3 mg HS PO Last administered on 12/01/17 21:02; Start 11/20/17 at 21: 00 Trazodone HCl (Desyrel) 25 mg PRN QHS PRN PO INSOMNIA, MAY REPEAT X1 Last administered on 11/22/17 21:03; Start 11/22/17 at 18:45 Polyethylene Glycol (miraLAX) 17 gm DAILY PO Last administered on 11/25/17 06: 28; Start 11/24/17 at 09:00; Stop 11/25/17 at 16:07; Status DC Quetiapine Fumarate (SEROquel) 6.25 mg DAILYBFRSUP PO Last administered on 11/30at 17:00; Start 11/24/17 at 19:00; Stop 11/30/17 at 20:32; Status DC Sennosides (Senna) 8.6 mg DAILY PO Last administered on 12/02/17at 09:03; Start 11/26/17 at 09:00 Quetiapine Fumarate (SEROquel) 12.5 mg TIDWMEALS PO Last administered on at 17:07; Start 12/01/17 at 08:00 Quetiapine Fumarate (SEROquel) 12.5 mg TIDWMEALS PO Last administered on at 09:02; Start 12/01/17 at 18:00; Stop 12/02/17 at 09:15; Status DC Active Scripts Active Reported D3-50 (Cholecalciferol (Vitamin D3)) 50,000 Unit Capsule 50,000 Unit PO QTH Vicodin 5-300 Mg Tablet (Hydrocodone Bit/Acetaminophen) 1 Each Tablet 1 Tab PO PRN Q4HRS PRN Tylenol (Acetaminophen) 325 Mg Tablet 650 Mg PO BID Tylenol (Acetaminophen) 325 Mg Tablet 650 Mg PO PRN Q4HRS PRN Triamcinolone Acetonide 15 Gm Cream..g. 1 Gm TP PRN DAILY PRN Remeron (Mirtazapine) 15 Mg Tablet 7.5 Mg PO QHS Preservision Areds Softgel (Vit A/Vit C/Vit E/Zinc/Copper) 1 Each Capsule 1 Cap PO DAILY Lorazepam 0.5 Mg Tablet 0.5 Mg PO TID Levothyroxine Sodium 100 Mcg Tablet 100 Mcg PO DAILYAC Keppra (Levetiracetam) 500 Mg Tablet 500 Mg PO BID Clopidogrel (Clopidogrel Bisulfate) 75 Mg Tablet 75 Mg PO DAILY I have reviewed the current psychotropics carefully including drug interactions. Risk benefit ratio favors no change other than as noted in my dictated progress note. Diagnosis: Problems: (1) Dementia (2) Combative behavior (3) Anxiety disorder (4) Dementia in Alzheimer's disease with delusions (5) Dementia in Alzheimer's disease with depression (6) Dementia, vascular, with delusions (7) Dementia, vascular, with depression (8) Impulse control disorder (9) Psychosis, atypical DERICK,MAN M MD December 02, 2017 20:55
--- NOTE | 2017-12-03 00:51 | PN ---
DATE: 12/01/2017 This is a late entry, 12/01/2017, covers the elements not covered in my initial note, 12/01/2017. SUBJECTIVE: I met with the patient in the evening. The patient has had a horrible day per nursing report. Took only Boost for breakfast; in the evening, he was yelling, calling out the F word, spitting at the staff, labile. We will check a UA to make sure he does not have a UTI, worsening his agitation. REVIEW OF SYSTEMS: No CV, , pulmonary, eye system symptoms on review. Reliability poor. Gait unsteady in wheelchair. MENTAL STATUS EXAM: Oriented to himself. Insight, judgment, recent and remote memory, attention, concentration, fund of knowledge poor, consistent with his diagnosis as mentioned in my initial note. PLAN: Check urinalysis. Continue rest unchanged with increased Seroquel noted. MAN Rosas SEPULVEDA MD DR: CHASE/wally JOB#: [id number] / [id number]
--- NOTE | 2017-12-03 00:59 | PN ---
DATE: 11/30/2017 PSYCHIATRIC PROGRESS NOTE This is a late entry for 11/30/2017, covers elements not covered in my initial note of 11/30/2017. SUBJECTIVE: I met with the patient in the evening of 11/30/2017. The patient was quite lucid in the morning. Said his him, admitted to feeling sad. Made statements that he could go in front of traffic or jump out of the window. He talked to his son, somewhat labile at times. REVIEW OF SYSTEMS: No CV, , pulmonary, eye system symptoms on review. Reliability poor. Gait unsteady in wheelchair. MENTAL STATUS EXAM: Oriented to himself. Insight, judgment, recent and remote memory, attention, concentration, fund of knowledge poor, consistent with his diagnosis mentioned in my initial note. PLAN: Increase Seroquel daytime from 12.5 mg daily to 12.5 mg t.i.d. Continue rest of the psychotropics unchanged including Keppra, Remeron, melatonin, trazodone, Zyprexa p.r.n. MAN Rosas SEPULVEDA MD DR: CHASE/wally JOB#: [id number] / [id number]
[2017-12-03] MEDS: LEVOTHYROXINE 100 MCG TABLET PO SCH (05:29)
[2017-12-03 07:59] VITALS: BP 111/67
[2017-12-03 08:12] LABS: BASO # 0.1 x10^3/uL (0.0-0.2); BASO % 1 % (0-3); EOS # 0.4 x10^3/uL (0.0-0.7); EOS % 8 % (0-3); HEMATOCRIT 32.5 % (39.0-53.0); HEMOGLOBIN 11.2 g/dL (13.0-17.5); LYMPH # 0.8 x10^3/uL (1.0-4.8); LYMPH % 17 % (24-48); MEAN CORPUSCULAR HEMOGLOBIN 33 pg (25-35); MEAN CORPUSCULAR HGB CONC 34 g/dL (31-37); MEAN CORPUSCULAR VOLUME 95 fL (79-100); MONO # 0.5 x10^3/uL (0.0-1.1); MONO % 11 % (0-9); NEUT % 63 % (31-73); PLATELET COUNT 263 x10^3/uL (140-400); RED BLOOD COUNT 3.44 x10^6/uL (4.30-5.70); WHITE BLOOD COUNT 4.8 x10^3/uL (4.0-11.0)
[2017-12-03 08:26] LABS: ALBUMIN 3.1 g/dL (3.4-5.0); ALBUMIN/GLOBULIN RATIO 0.9 (1.0-1.7); CALCIUM 8.7 mg/dL (8.5-10.1); CREATININE 0.9 mg/dL (0.7-1.3); GFR 79.5; MAGNESIUM 2.2 mg/dL (1.8-2.4); TOTAL BILIRUBIN 0.5 mg/dL (0.2-1.0); TOTAL PROTEIN 6.5 g/dL (6.4-8.2)
[2017-12-03] MEDS: CLOPIDOGREL BISULFATE 75 MG TABLET PO SCH (08:54)
[2017-12-03] MEDS: MULTIVITAMIN I-VITE TABLET. PO SCH (08:54)
[2017-12-03] MEDS: SENNOSIDES 8.6 MG TABLET PO SCH (08:54)
[2017-12-03] MEDS: ACETAMINOPHEN 325 MG TABLET PO SCH ×2 (08:54→21:09)
[2017-12-03] MEDS: QUEtiapine 25 MG TABLET. PO SCH ×3 (08:54→17:25)
[2017-12-03 16:38] VITALS: BP 121/50
--- NOTE | 2017-12-03 18:41 | PN ---
DATE: 12/02/2017 PSYCHIATRIC PROGRESS NOTE This is a late entry for 12/02/2017, covers elements not covered in my initial note of 12/02/2017. SUBJECTIVE: The patient slept 6 hours, somewhat restless. Received Zyprexa twice for the yelling, mood lability. REVIEW OF SYSTEMS: Ambulation impaired, in wheelchair. No CV, , pulmonary, eye, ENT system symptoms on review. Reliability poor. MENTAL STATUS EXAM: Oriented to himself. Insight, judgment, recent and remote memory, attention, concentration, fund of knowledge poor, consistent with his diagnosis mentioned in my initial note. IMPRESSION: Major neurocognitive disorder, Alzheimer, vascular with delusion, depression, behavioral disturbance. Rest unchanged. PLAN: Check UA to rule out urinary tract infection given his sudden change in mental status after he had been stable for several days in preparation for discharge. We have so far not been able to get a UA and nursing staff are persevering. Continue psychotropics mentioned in my initial note in the interim. MAN Rosas SEPULVEDA MD DR: CHASE/wally JOB#: [id number] / [id number]
[2017-12-03 18:58] LABS: BILIRUBIN,URINE NEG (NEG); CLARITY,URINE TURBID; COLOR,URINE YELLOW; GLUCOSE,URINE NEG (NEG); NITRITE,URINE NEG (NEG); UROBILINOGEN,URINE 0.2 mg/dL (0.2 mg/dL)
[2017-12-03 18:59] LABS: BACTERIA,URINE MANY /HPF (0-FEW); WBC,URINE OCC /HPF (0-4)
[2017-12-03 19:07] LABS: AMORPHOUS SEDIMENT,UR PRESENT /HPF
--- NOTE | 2017-12-03 20:23 | PDOC ---
Exam Note: Slava Note: Please also refer to the separate dictated note~for this date of service dictated separately.~Patient seen individually. Discussed the patient with Nursing staff reviewed the chart.~Reviewed interim history and current functioning. Reviewed vital signs,~Labs/ Radiology~and current medications noted below. Continue current treatment with the changes noted in the dictated addendum note Assessment: Vital Signs: Vital Signs Date Time Temp Pulse Resp B/P (MAP) Pulse Ox O2 Delivery O2 Flow Rate FiO2 12/03/17 16:38 97.3 81 18 121/50 (73) 96 I&O Intake and Output 12/03/17 07:00 Intake Total 540 ml Balance 540 ml Intake Oral 540 ml Labs: Laboratory Tests Test 12/03/17 07:54 12/03/17 18:03 White Blood Count 4.8 x10^3/uL (4.0-11.0) Red Blood Count 3.44 x10^6/uL (4.30-5.70) L Hemoglobin 11.2 g/dL (13.0-17.5) L Hematocrit 32.5 % (39.0-53.0) L Mean Corpuscular Volume 95 fL (79-100) Mean Corpuscular Hemoglobin 33 pg (25-35) Mean Corpuscular Hemoglobin Concent 34 g/dL (31-37) Red Cell Distribution Width 16.0 % (11.5-14.5) H Platelet Count 263 x10^3/uL (140-400) Neutrophils (%) (Auto) 63 % (31-73) Lymphocytes (%) (Auto) 17 % (24-48) L Monocytes (%) (Auto) 11 % (0-9) H Eosinophils (%) (Auto) 8 % (0-3) H Basophils (%) (Auto) 1 % (0-3) Neutrophils # (Auto) 3.0 x10^3uL (1.8-7.7) Lymphocytes # (Auto) 0.8 x10^3/uL (1.0-4.8) L Monocytes # (Auto) 0.5 x10^3/uL (0.0-1.1) Eosinophils # (Auto) 0.4 x10^3/uL (0.0-0.7) Basophils # (Auto) 0.1 x10^3/uL (0.0-0.2) Sodium Level 141 mmol/L (136-145) Potassium Level 4.0 mmol/L (3.5-5.1) Chloride Level 103 mmol/L (98-107) Carbon Dioxide Level 30 mmol/L (21-32) Anion Gap 8 (6-14) Blood Urea Nitrogen 20 mg/dL (8-26) Creatinine 0.9 mg/dL (0.7-1.3) Estimated GFR (Cockcroft-Gault) 79.5 BUN/Creatinine Ratio 22 (6-20) H Glucose Level 89 mg/dL (70-99) Calcium Level 8.7 mg/dL (8.5-10.1) Magnesium Level 2.2 mg/dL (1.8-2.4) Total Bilirubin 0.5 mg/dL (0.2-1.0) Aspartate Amino Transferase (AST) 33 U/L (15-37) Alanine Aminotransferase (ALT) 29 U/L (16-63) Alkaline Phosphatase 86 U/L (46-116) Total Protein 6.5 g/dL (6.4-8.2) Albumin 3.1 g/dL (3.4-5.0) L Albumin/Globulin Ratio 0.9 (1.0-1.7) L Urine Collection Type Unknown Urine Color Yellow Urine Clarity Turbid Urine pH 7.0 Urine Specific [place] 1.015 Urine Protein Trace (NEG-TRACE) Urine Glucose (UA) Neg mg/dL (NEG) Urine Ketones (Stick) Neg mg/dL (NEG) Urine Blood Large (NEG) Urine Nitrite Neg (NEG) Urine Bilirubin Neg (NEG) Urine Urobilinogen Dipstick 0.2 mg/dL (0.2 mg/dL) Urine Leukocyte Esterase Trace (NEG) Urine RBC 11-20 /HPF (0-2) Urine WBC Occ /HPF (0-4) Urine Squamous Epithelial Cells None /LPF Urine Amorphous Sediment Present /HPF Urine Bacteria Many /HPF (0-FEW) Current Medications: Meds: Current Medications Acetaminophen (Tylenol) 650 mg PRN Q6HRS PRN PO PAIN / TEMP; Start 11/12/17 at 22:15; Stop 11/12/17 at 23:06; Status DC Al Hydroxide/Mg Hydroxide (Mylanta Plus Xs) 15 ml PRN AFTMEALHC PRN PO DYSPEPSIA; Start 11/12/17 at 22:15 Magnesium Hydroxide (Milk Of Magnesia) 2,400 mg PRN QHS PRN PO CONSTIPATION Last administered on 12/01/17 05:33; Start 11/12/17 at 22:15 Lorazepam (Ativan) 0.5 mg TID PO Last administered on 11/14/17 09:17; Start at 22:30; Stop 11/14/17 at 13:07; Status DC Mirtazapine (Remeron) 15 mg QHS PO Last administered on 12/02/17at 20:55; Start 11/12/17 at 22:30 Acetaminophen (Tylenol) 650 mg BID PO Last administered on 12/03/17 08:54; Start 11/13/17 at 09:00 Acetaminophen (Tylenol) 650 mg PRN Q4HRS PRN PO PAIN / TEMP; Start 11/12/17 at 23:15 Vitamin D (Vitamin D3) 50,000 unit QTH PO Last administered on 11/28/17at 16:36 ; Start 11/14/17 at 16:00 Clopidogrel Bisulfate (Plavix) 75 mg DAILY PO Last administered on 12/03/17 08 :54; Start 11/13/17 at 09:00 Levetiracetam (Keppra) 500 mg BID PO Last administered on 11/13/17at 08:34; Start 11/13/17 at 09:00; Stop 11/13/17 at 09:43; Status DC Levothyroxine Sodium (Synthroid) 100 mcg DAILYAC PO Last administered on at 09:17; Start 11/13/17 at 07:30; Stop 11/14/17 at 16:49; Status DC Acetaminophen/ Hydrocodone Bitart (Lortab 5/325) 1 tab PRN Q4HRS PRN PO PAIN Last administered on 11/19/17at 13:01; Start 11/12/17 at 23:15 Triamcinolone Acetonide (Kenalog) 1 jyoti PRN DAILY PRN TP ITCHING/REDNESS; Start 11/12/17 at 23:15 Multivitamins/ Minerals (I-Kevin) 1 tab DAILY PO Last administered on 12/03/17at 08:54; Start 11/13/17 at 09:00 Levetiracetam (Keppra) 500 mg BID PO Last administered on 12/03/17at 08:58; Start 11/13/17 at 10:00 Cyanocobalamin (Vitamin B-12) 1,000 mcg WEEKLY IM Last administered on at 09:29; Start 11/13/17 at 17:30 Lorazepam (Ativan) 0.5 mg BID PO ; Start 11/14/17 at 21:00; Stop 11/14/17 at 21: 00; Status DC Lorazepam (Ativan) 0.25 mg DAILY@1400 PRN PO ANXIETY / AGITATION; Start at 14:00; Stop 11/14/17 at 14:00; Status DC Lorazepam (Ativan) 0.25 mg DAILY PO Last administered on 11/23/17at 08:50; Start 11/16/17 at 09:00; Stop 11/23/17 at 09:01; Status DC Lorazepam (Ativan) 0.25 mg DAILY@1400 PO Last administered on 11/19/17at 13:00; Start 11/14/17 at 14:00; Stop 11/19/17 at 14:02; Status DC Lorazepam (Ativan) 0.5 mg QHS PO Last administered on 11/17/17at 20:05; Start at 21:00; Stop 11/17/17 at 21:01; Status DC Lorazepam (Ativan) 0.25 mg QHS PO Last administered on 11/21/17at 20:07; Start at 21:00; Stop 11/21/17 at 21:01; Status DC Lorazepam (Ativan) 0.5 mg DAILY PO Last administered on 11/15/17at 09:43; Start 11/15/17 at 09:00; Stop 11/15/17 at 09:01; Status DC Levothyroxine Sodium (Synthroid) 100 mcg DAILY06 PO Last administered on at 05:29; Start 11/15/17 at 06:00 Quetiapine Fumarate (SEROquel) 12.5 mg DAILY PO Last administered on 11/30/17at 08:07; Start 11/15/17 at 09:00; Stop 11/30/17 at 20:29; Status DC Olanzapine (ZyPREXA ZYDIS) 1.25 mg PRN Q2HR PRN PO PSYCHOSIS Last administered on 12/03/17 15:26; Start 11/14/17 at 18:15 Quetiapine Fumarate (SEROquel) 6.25 mg DAILY@1300 PO Last administered on 14:07; Start 11/20/17 at 13:00; Stop 11/30/17 at 20:29; Status DC Bisacodyl (Dulcolax Supp) 10 mg PRN DAILY PRN [place] CONSTIPATION Last administered on 11/25/17 14:33; Start 11/20/17 at 19:15 Melatonin 3 mg HS PO Last administered on 12/02/17 20:55; Start 11/20/17 at 21: 00 Trazodone HCl (Desyrel) 25 mg PRN QHS PRN PO INSOMNIA, MAY REPEAT X1 Last administered on 11/22/17 21:03; Start 11/22/17 at 18:45 Polyethylene Glycol (miraLAX) 17 gm DAILY PO Last administered on 11/25/17at 06: 28; Start 11/24/17 at 09:00; Stop 11/25/17 at 16:07; Status DC Quetiapine Fumarate (SEROquel) 6.25 mg DAILYBFRSUP PO Last administered on 11/30 17:00; Start 11/24/17 at 19:00; Stop 11/30/17 at 20:32; Status DC Sennosides (Senna) 8.6 mg DAILY PO Last administered on 12/03/17at 08:54; Start 11/26/17 at 09:00 Quetiapine Fumarate (SEROquel) 12.5 mg TIDWMEALS PO Last administered on 17:25; Start 12/01/17 at 08:00 Quetiapine Fumarate (SEROquel) 12.5 mg TIDWMEALS PO Last administered on at 09:02; Start 12/01/17 at 18:00; Stop 12/02/17 at 09:15; Status DC Active Scripts Active Reported D3-50 (Cholecalciferol (Vitamin D3)) 50,000 Unit Capsule 50,000 Unit PO QTH Vicodin 5-300 Mg Tablet (Hydrocodone Bit/Acetaminophen) 1 Each Tablet 1 Tab PO PRN Q4HRS PRN Tylenol (Acetaminophen) 325 Mg Tablet 650 Mg PO BID Tylenol (Acetaminophen) 325 Mg Tablet 650 Mg PO PRN Q4HRS PRN Triamcinolone Acetonide 15 Gm Cream..g. 1 Gm TP PRN DAILY PRN Remeron (Mirtazapine) 15 Mg Tablet 7.5 Mg PO QHS Preservision Areds Softgel (Vit A/Vit C/Vit E/Zinc/Copper) 1 Each Capsule 1 Cap PO DAILY Lorazepam 0.5 Mg Tablet 0.5 Mg PO TID Levothyroxine Sodium 100 Mcg Tablet 100 Mcg PO DAILYAC Keppra (Levetiracetam) 500 Mg Tablet 500 Mg PO BID Clopidogrel (Clopidogrel Bisulfate) 75 Mg Tablet 75 Mg PO DAILY I have reviewed the current psychotropics carefully including drug interactions. Risk benefit ratio favors no change other than as noted in my dictated progress note. 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
[2017-12-03] MEDS: MIRTAZAPINE 15 MG TABLET PO SCH (21:09)
[2017-12-03] MEDS: MELATONIN 3 MG TABLET PO SCH (21:09)
[2017-12-04] MEDS: traZODone 50 MG TABLET. PO PRN ×2 (00:23→22:31)
[2017-12-04 05:57] VITALS: BP 135/62
[2017-12-04] MEDS: LEVOTHYROXINE 100 MCG TABLET PO SCH (10:17)
[2017-12-04] MEDS: CLOPIDOGREL BISULFATE 75 MG TABLET PO SCH (10:18)
[2017-12-04] MEDS: MULTIVITAMIN I-VITE TABLET. PO SCH (10:18)
[2017-12-04] MEDS: ACETAMINOPHEN 325 MG TABLET PO SCH ×2 (10:18→19:49)
[2017-12-04] MEDS: QUEtiapine 25 MG TABLET. PO SCH ×3 (10:18→17:00)
[2017-12-04] MEDS: SENNOSIDES 8.6 MG TABLET PO SCH (10:18)
[2017-12-04] MEDS: CYANOCOBALAMIN (VITAMIN B-12) 1,000 MCG/ML VIAL IM SCH (10:20)
[2017-12-04] MEDS: MIRTAZAPINE 15 MG TABLET PO SCH (19:49)
[2017-12-04] MEDS: MELATONIN 3 MG TABLET PO SCH (19:50)
--- NOTE | 2017-12-04 22:20 | PDOC ---
Exam Note: Slava Note: Please also refer to the separate dictated note~for this date of service dictated separately.~Patient seen individually. Discussed the patient with Nursing staff reviewed the chart.~Reviewed interim history and current functioning. Reviewed vital signs,~Labs/ Radiology~and current medications noted below. Continue current treatment with the changes noted in the dictated addendum note Assessment: Vital Signs: Vital Signs Date Time Temp Pulse Resp B/P (MAP) Pulse Ox O2 Delivery O2 Flow Rate FiO2 12/04/17 05:57 97.3 82 19 135/62 (86) 98 I&O Intake and Output 12/04/17 07:00 Intake Total 360 ml Balance 360 ml Intake Oral 360 ml Current Medications: Meds: Current Medications Acetaminophen (Tylenol) 650 mg PRN Q6HRS PRN PO PAIN / TEMP; Start 11/12/17 at 22:15; Stop 11/12/17 at 23:06; Status DC Al Hydroxide/Mg Hydroxide (Mylanta Plus Xs) 15 ml PRN AFTMEALHC PRN PO DYSPEPSIA; Start 11/12/17 at 22:15 Magnesium Hydroxide (Milk Of Magnesia) 2,400 mg PRN QHS PRN PO CONSTIPATION Last administered on 12/01/17at 05:33; Start 11/12/17 at 22:15 Lorazepam (Ativan) 0.5 mg TID PO Last administered on 11/14/17at 09:17; Start at 22:30; Stop 11/14/17 at 13:07; Status DC Mirtazapine (Remeron) 15 mg QHS PO Last administered on 12/04/17 19:49; Start 11/12/17 at 22:30 Acetaminophen (Tylenol) 650 mg BID PO Last administered on 12/04/17 19:49; Start 11/13/17 at 09:00 Acetaminophen (Tylenol) 650 mg PRN Q4HRS PRN PO PAIN / TEMP; Start 11/12/17 at 23:15 Vitamin D (Vitamin D3) 50,000 unit QTH PO Last administered on 11/28/17at 16:36 ; Start 11/14/17 at 16:00 Clopidogrel Bisulfate (Plavix) 75 mg DAILY PO Last administered on 12/04/17at 10 :18; Start 11/13/17 at 09:00 Levetiracetam (Keppra) 500 mg BID PO Last administered on 11/13/17at 08:34; Start 11/13/17 at 09:00; Stop 11/13/17 at 09:43; Status DC Levothyroxine Sodium (Synthroid) 100 mcg DAILYAC PO Last administered on at 09:17; Start 11/13/17 at 07:30; Stop 11/14/17 at 16:49; Status DC Acetaminophen/ Hydrocodone Bitart (Lortab 5/325) 1 tab PRN Q4HRS PRN PO PAIN Last administered on 11/19/17at 13:01; Start 11/12/17 at 23:15 Triamcinolone Acetonide (Kenalog) 1 jyoti PRN DAILY PRN TP ITCHING/REDNESS; Start 11/12/17 at 23:15 Multivitamins/ Minerals (I-Kevin) 1 tab DAILY PO Last administered on 12/04/17at 10:18; Start 11/13/17 at 09:00 Levetiracetam (Keppra) 500 mg BID PO Last administered on 12/04/17at 19:53; Start 11/13/17 at 10:00 Cyanocobalamin (Vitamin B-12) 1,000 mcg WEEKLY IM Last administered on at 10:20; Start 11/13/17 at 17:30 Lorazepam (Ativan) 0.5 mg BID PO ; Start 11/14/17 at 21:00; Stop 11/14/17 at 21: 00; Status DC Lorazepam (Ativan) 0.25 mg DAILY@1400 PRN PO ANXIETY / AGITATION; Start at 14:00; Stop 11/14/17 at 14:00; Status DC Lorazepam (Ativan) 0.25 mg DAILY PO Last administered on 11/23/17at 08:50; Start 11/16/17 at 09:00; Stop 11/23/17 at 09:01; Status DC Lorazepam (Ativan) 0.25 mg DAILY@1400 PO Last administered on 11/19/17at 13:00; Start 11/14/17 at 14:00; Stop 11/19/17 at 14:02; Status DC Lorazepam (Ativan) 0.5 mg QHS PO Last administered on 4/29/18at 20:05; Start at 21:00; Stop 11/17/17 at 21:01; Status DC Lorazepam (Ativan) 0.25 mg QHS PO Last administered on 11/21/17 20:07; Start at 21:00; Stop 11/21/17 at 21:01; Status DC Lorazepam (Ativan) 0.5 mg DAILY PO Last administered on 11/15/17 09:43; Start 11/15/17 at 09:00; Stop 11/15/17 at 09:01; Status DC Levothyroxine Sodium (Synthroid) 100 mcg DAILY06 PO Last administered on 10:17; Start 11/15/17 at 06:00 Quetiapine Fumarate (SEROquel) 12.5 mg DAILY PO Last administered on 11/30/17 08:07; Start 11/15/17 at 09:00; Stop 11/30/17 at 20:29; Status DC Olanzapine (ZyPREXA ZYDIS) 1.25 mg PRN Q2HR PRN PO PSYCHOSIS Last administered on 12/03/17 15:26; Start 11/14/17 at 18:15 Quetiapine Fumarate (SEROquel) 6.25 mg DAILY@1300 PO Last administered on 14:07; Start 11/20/17 at 13:00; Stop 11/30/17 at 20:29; Status DC Bisacodyl (Dulcolax Supp) 10 mg PRN DAILY PRN [place] CONSTIPATION Last administered on 11/25/17 14:33; Start 11/20/17 at 19:15 Melatonin 3 mg HS PO Last administered on 12/04/17 19:50; Start 11/20/17 at 21: 00 Trazodone HCl (Desyrel) 25 mg PRN QHS PRN PO INSOMNIA, MAY REPEAT X1 Last administered on 12/04/17at 00:23; Start 11/22/17 at 18:45 Polyethylene Glycol (miraLAX) 17 gm DAILY PO Last administered on 11/25/17 06: 28; Start 11/24/17 at 09:00; Stop 11/25/17 at 16:07; Status DC Quetiapine Fumarate (SEROquel) 6.25 mg DAILYBFRSUP PO Last administered on 11/30at 17:00; Start 11/24/17 at 19:00; Stop 11/30/17 at 20:32; Status DC Sennosides (Senna) 8.6 mg DAILY PO Last administered on 12/04/17at 10:18; Start 11/26/17 at 09:00 Quetiapine Fumarate (SEROquel) 12.5 mg TIDWMEALS PO Last administered on at 17:00; Start 12/01/17 at 08:00 Quetiapine Fumarate (SEROquel) 12.5 mg TIDWMEALS PO Last administered on at 09:02; Start 12/01/17 at 18:00; Stop 12/02/17 at 09:15; Status DC Active Scripts Active Reported D3-50 (Cholecalciferol (Vitamin D3)) 50,000 Unit Capsule 50,000 Unit PO QTH Vicodin 5-300 Mg Tablet (Hydrocodone Bit/Acetaminophen) 1 Each Tablet 1 Tab PO PRN Q4HRS PRN Tylenol (Acetaminophen) 325 Mg Tablet 650 Mg PO BID Tylenol (Acetaminophen) 325 Mg Tablet 650 Mg PO PRN Q4HRS PRN Triamcinolone Acetonide 15 Gm Cream..g. 1 Gm TP PRN DAILY PRN Remeron (Mirtazapine) 15 Mg Tablet 7.5 Mg PO QHS Preservision Areds Softgel (Vit A/Vit C/Vit E/Zinc/Copper) 1 Each Capsule 1 Cap PO DAILY Lorazepam 0.5 Mg Tablet 0.5 Mg PO TID Levothyroxine Sodium 100 Mcg Tablet 100 Mcg PO DAILYAC Keppra (Levetiracetam) 500 Mg Tablet 500 Mg PO BID Clopidogrel (Clopidogrel Bisulfate) 75 Mg Tablet 75 Mg PO DAILY I have reviewed the current psychotropics carefully including drug interactions. Risk benefit ratio favors no change other than as noted in my dictated progress note. Diagnosis: Problems: (1) Dementia (2) Combative behavior (3) Anxiety disorder (4) Dementia in Alzheimer's disease with delusions (5) Dementia in Alzheimer's disease with depression (6) Dementia, vascular, with delusions (7) Dementia, vascular, with depression (8) Impulse control disorder (9) Psychosis, atypical AYSHA SEPULVEDA MD December 04, 2017 22:20
[2017-12-04] MEDS: BISACODYL 10 MG SUPP.RECT PR PRN (22:31)
--- NOTE | 2017-12-05 03:34 | PN ---
DATE: 12/03/2017 This is a late entry for 12/03/2017 and covers elements not covered in my initial note of 12/03/2017. I met with the patient in the evening. The patient slept 7-3/4 hours previous evening, was up all night, yelling, combative, removing his clothes, anxious, agitated. UA has been collected and it is foul smelling cloudy and the patient may well have a UTI explaining the change in his mental status and the marked agitation after a period of being quite reasonably stable on his psychotropics. We will wait for the UA, C and S. REVIEW OF SYSTEMS: No CV, , pulmonary, eye, ENT system symptoms on review. Gait unsteady, in wheelchair. MENTAL STATUS EXAM: Oriented to himself. Insight, judgment, recent and remote memory, attention, concentration, fund of knowledge poor, consistent with his diagnosis as mentioned in my initial note. PLAN: Continue current psychotropics, check UA. Treat UTI per Dr. Martins. Adjust further as clinically indicated. Rest unchanged from initial note. MAN Rosas SEPULVEDA MD DR: CHASE/wally JOB#: [id number] / [id number]
[2017-12-05] MEDS: LEVOTHYROXINE 100 MCG TABLET PO SCH (05:13)
[2017-12-05 06:10] VITALS: BP 104/53
[2017-12-05] MEDS: MULTIVITAMIN I-VITE TABLET. PO SCH (08:22)
[2017-12-05] MEDS: QUEtiapine 25 MG TABLET. PO SCH ×3 (08:22→17:32)
[2017-12-05] MEDS: SENNOSIDES 8.6 MG TABLET PO SCH (08:23)
[2017-12-05] MEDS: ACETAMINOPHEN 325 MG TABLET PO SCH ×2 (08:23→20:40)
[2017-12-05] MEDS: CLOPIDOGREL BISULFATE 75 MG TABLET PO SCH (08:23)
[2017-12-05] MEDS: CHOLECALCIFEROL (VITAMIN D3) 50,000 UNIT CAPSULE PO SCH (16:16)
[2017-12-05 16:54] VITALS: BP 107/59
--- NOTE | 2017-12-05 20:22 | PDOC ---
Exam Note: Slava Note: Please also refer to the separate dictated note~for this date of service dictated separately.~Patient seen individually. Discussed the patient with Nursing staff reviewed the chart.~Reviewed interim history and current functioning. Reviewed vital signs,~Labs/ Radiology~and current medications noted below. Continue current treatment with the changes noted in the dictated addendum note Assessment: Vital Signs: Vital Signs Date Time Temp Pulse Resp B/P (MAP) Pulse Ox O2 Delivery O2 Flow Rate FiO2 12/05/17 16:54 97.3 79 16 107/59 (75) 97 Room Air I&O Intake and Output 12/05/17 07:00 Intake Total 360 ml Balance 360 ml Intake Oral 360 ml Current Medications: Meds: Current Medications Acetaminophen (Tylenol) 650 mg PRN Q6HRS PRN PO PAIN / TEMP; Start 11/12/17 at 22:15; Stop 11/12/17 at 23:06; Status DC Al Hydroxide/Mg Hydroxide (Mylanta Plus Xs) 15 ml PRN AFTMEALHC PRN PO DYSPEPSIA; Start 11/12/17 at 22:15 Magnesium Hydroxide (Milk Of Magnesia) 2,400 mg PRN QHS PRN PO CONSTIPATION Last administered on 12/01/17at 05:33; Start 11/12/17 at 22:15 Lorazepam (Ativan) 0.5 mg TID PO Last administered on 11/14/17at 09:17; Start at 22:30; Stop 11/14/17 at 13:07; Status DC Mirtazapine (Remeron) 15 mg QHS PO Last administered on 12/04/17at 19:49; Start 11/12/17 at 22:30 Acetaminophen (Tylenol) 650 mg BID PO Last administered on 12/05/17at 08:23; Start 11/13/17 at 09:00 Acetaminophen (Tylenol) 650 mg PRN Q4HRS PRN PO PAIN / TEMP; Start 11/12/17 at 23:15 Vitamin D (Vitamin D3) 50,000 unit QTH PO Last administered on 12/05/17at 16:16 ; Start 11/14/17 at 16:00 Clopidogrel Bisulfate (Plavix) 75 mg DAILY PO Last administered on 12/05/17at 08 :23; Start 11/13/17 at 09:00 Levetiracetam (Keppra) 500 mg BID PO Last administered on 11/13/17at 08:34; Start 11/13/17 at 09:00; Stop 11/13/17 at 09:43; Status DC Levothyroxine Sodium (Synthroid) 100 mcg DAILYAC PO Last administered on at 09:17; Start 11/13/17 at 07:30; Stop 11/14/17 at 16:49; Status DC Acetaminophen/ Hydrocodone Bitart (Lortab 5/325) 1 tab PRN Q4HRS PRN PO PAIN Last administered on 11/19/17at 13:01; Start 11/12/17 at 23:15 Triamcinolone Acetonide (Kenalog) 1 jyoti PRN DAILY PRN TP ITCHING/REDNESS; Start 11/12/17 at 23:15 Multivitamins/ Minerals (I-Kevin) 1 tab DAILY PO Last administered on 12/05/17at 08:22; Start 11/13/17 at 09:00 Levetiracetam (Keppra) 500 mg BID PO Last administered on 12/05/17at 08:23; Start 11/13/17 at 10:00 Cyanocobalamin (Vitamin B-12) 1,000 mcg WEEKLY IM Last administered on at 10:20; Start 11/13/17 at 17:30 Lorazepam (Ativan) 0.5 mg BID PO ; Start 11/14/17 at 21:00; Stop 11/14/17 at 21: 00; Status DC Lorazepam (Ativan) 0.25 mg DAILY@1400 PRN PO ANXIETY / AGITATION; Start at 14:00; Stop 11/14/17 at 14:00; Status DC Lorazepam (Ativan) 0.25 mg DAILY PO Last administered on 11/23/17at 08:50; Start 11/16/17 at 09:00; Stop 11/23/17 at 09:01; Status DC Lorazepam (Ativan) 0.25 mg DAILY@1400 PO Last administered on 11/19/17at 13:00; Start 11/14/17 at 14:00; Stop 11/19/17 at 14:02; Status DC Lorazepam (Ativan) 0.5 mg QHS PO Last administered on 11/17/17 20:05; Start at 21:00; Stop 11/17/17 at 21:01; Status DC Lorazepam (Ativan) 0.25 mg QHS PO Last administered on 11/21/17 20:07; Start at 21:00; Stop 11/21/17 at 21:01; Status DC Lorazepam (Ativan) 0.5 mg DAILY PO Last administered on 11/15/17 09:43; Start 11/15/17 at 09:00; Stop 11/15/17 at 09:01; Status DC Levothyroxine Sodium (Synthroid) 100 mcg DAILY06 PO Last administered on 05:13; Start 11/15/17 at 06:00 Quetiapine Fumarate (SEROquel) 12.5 mg DAILY PO Last administered on 11/30/17 08:07; Start 11/15/17 at 09:00; Stop 11/30/17 at 20:29; Status DC Olanzapine (ZyPREXA ZYDIS) 1.25 mg PRN Q2HR PRN PO PSYCHOSIS Last administered on 12/03/17 15:26; Start 11/14/17 at 18:15 Quetiapine Fumarate (SEROquel) 6.25 mg DAILY@1300 PO Last administered on 14:07; Start 11/20/17 at 13:00; Stop 11/30/17 at 20:29; Status DC Bisacodyl (Dulcolax Supp) 10 mg PRN DAILY PRN [place] CONSTIPATION Last administered on 12/04/17 22:31; Start 11/20/17 at 19:15 Melatonin 3 mg HS PO Last administered on 12/04/17 19:50; Start 11/20/17 at 21: 00 Trazodone HCl (Desyrel) 25 mg PRN QHS PRN PO INSOMNIA, MAY REPEAT X1 Last administered on 12/04/17 22:31; Start 11/22/17 at 18:45 Polyethylene Glycol (miraLAX) 17 gm DAILY PO Last administered on 11/25/17 06: 28; Start 11/24/17 at 09:00; Stop 11/25/17 at 16:07; Status DC Quetiapine Fumarate (SEROquel) 6.25 mg DAILYBFRSUP PO Last administered on 11/30at 17:00; Start 11/24/17 at 19:00; Stop 11/30/17 at 20:32; Status DC Sennosides (Senna) 8.6 mg DAILY PO Last administered on 12/05/17at 08:23; Start 11/26/17 at 09:00 Quetiapine Fumarate (SEROquel) 12.5 mg TIDWMEALS PO Last administered on at 17:32; Start 12/01/17 at 08:00 Quetiapine Fumarate (SEROquel) 12.5 mg TIDWMEALS PO Last administered on at 09:02; Start 12/01/17 at 18:00; Stop 12/02/17 at 09:15; Status DC Active Scripts Active Reported D3-50 (Cholecalciferol (Vitamin D3)) 50,000 Unit Capsule 50,000 Unit PO QTH Vicodin 5-300 Mg Tablet (Hydrocodone Bit/Acetaminophen) 1 Each Tablet 1 Tab PO PRN Q4HRS PRN Tylenol (Acetaminophen) 325 Mg Tablet 650 Mg PO BID Tylenol (Acetaminophen) 325 Mg Tablet 650 Mg PO PRN Q4HRS PRN Triamcinolone Acetonide 15 Gm Cream..g. 1 Gm TP PRN DAILY PRN Remeron (Mirtazapine) 15 Mg Tablet 7.5 Mg PO QHS Preservision Areds Softgel (Vit A/Vit C/Vit E/Zinc/Copper) 1 Each Capsule 1 Cap PO DAILY Lorazepam 0.5 Mg Tablet 0.5 Mg PO TID Levothyroxine Sodium 100 Mcg Tablet 100 Mcg PO DAILYAC Keppra (Levetiracetam) 500 Mg Tablet 500 Mg PO BID Clopidogrel (Clopidogrel Bisulfate) 75 Mg Tablet 75 Mg PO DAILY I have reviewed the current psychotropics carefully including drug interactions. Risk benefit ratio favors no change other than as noted in my dictated progress note. Diagnosis: Problems: (1) Dementia (2) Combative behavior (3) Anxiety disorder (4) Dementia in Alzheimer's disease with delusions (5) Dementia in Alzheimer's disease with depression (6) Dementia, vascular, with delusions (7) Dementia, vascular, with depression (8) Impulse control disorder (9) Psychosis, atypical AYSHA SEPULVEDA MD December 05, 2017 20:22
[2017-12-05] MEDS: MIRTAZAPINE 15 MG TABLET PO SCH (20:40)
[2017-12-05] MEDS: MELATONIN 3 MG TABLET PO SCH (20:40)
[2017-12-06] MEDS ORDERED: CEPH500T PO (02:47)
[2017-12-06 05:38] VITALS: BP 112/51
[2017-12-06] MEDS: LEVOTHYROXINE 100 MCG TABLET PO SCH (06:21)
[2017-12-06] MEDS: ACETAMINOPHEN 325 MG TABLET PO SCH ×2 (09:23→20:12)
[2017-12-06] MEDS: SENNOSIDES 8.6 MG TABLET PO SCH (09:23)
[2017-12-06] MEDS: CLOPIDOGREL BISULFATE 75 MG TABLET PO SCH (09:23)
[2017-12-06] MEDS: MULTIVITAMIN I-VITE TABLET. PO SCH (09:23)
[2017-12-06] MEDS: QUEtiapine 25 MG TABLET. PO SCH ×3 (09:25→16:45)
[2017-12-06 16:25] VITALS: BP 101/57
[2017-12-06] MEDS: MELATONIN 3 MG TABLET PO SCH (20:12)
[2017-12-06] MEDS: MIRTAZAPINE 15 MG TABLET PO SCH (20:12)
[2017-12-06] MEDS: CEPHALEXIN 250 MG CAPSULE PO SCH (20:25)
[2017-12-06] MEDS: LACTOBACILLUS RHAMNOSUS GG 1 CAPSULE. PO SCH (20:26)
--- NOTE | 2017-12-07 03:21 | PN ---
DATE: 12/04/2017 This is a late entry of 12/04/2017 covers elements not covered in my initial note of 12/04/2017. SUBJECTIVE: I met with the patient in the evening and staffed at a treatment team meeting with the entire team earlier in the day. He has been combative at times, had to be placed in the quiet room in [facility], is constipated, received suppository. UA is positive. Culture is awaited. Sleeping about 5 hours. Appetite is 50%. REVIEW OF SYSTEMS: No CV, , pulmonary, eye, ENT system symptoms on review. Reliability poor. MENTAL STATUS EXAM: Oriented to himself. Insight, judgment, recent and remote memory, attention, concentration, fund of knowledge poor, consistent with his diagnosis mentioned in my initial note. PLAN: Continue psychotropics mentioned in my initial note. Treat UTI once C and S of the urine has returned as this could be well contributing to majority of his worsening psychiatric symptoms. AYSHA SEPULVEDA MD DR: CHASE/wally JOB#: [id number] / [id number]
--- NOTE | 2017-12-07 03:26 | PN ---
DATE: 12/05/2017 This late entry 12/05/2017 covers elements not covered in my initial note 12/05/2017. I met with the patient in the evening. The patient did not sleep at all previous evening, has been sleeping off and on all day 12/05/2017, ate some breakfast. REVIEW OF SYSTEMS: No CV, , pulmonary, eye, ENT system symptoms on review. Reliability poor. Gait unsteady. MENTAL STATUS EXAM: Oriented to himself. Insight, judgment, recent and remote memory, attention, concentration, fund of knowledge poor, consistent with his diagnosis mentioned in my initial note. PLAN: Continue current psychotropics. Increase trazodone to 50 mg at bedtime, may repeat x 1 for insomnia. Rest unchanged. Await urine, C and S and treat it as indicated. MAN Rosas SEPULVEDA MD DR: CHASE/wally JOB#: [id number] / [id number]
[2017-12-07] MEDS: LEVOTHYROXINE 100 MCG TABLET PO SCH (05:28)
[2017-12-07 06:16] VITALS: BP 103/49
[2017-12-07] MEDS: CLOPIDOGREL BISULFATE 75 MG TABLET PO SCH (11:36)
[2017-12-07] MEDS: MULTIVITAMIN I-VITE TABLET. PO SCH (11:36)
[2017-12-07] MEDS: LACTOBACILLUS RHAMNOSUS GG 1 CAPSULE. PO SCH ×2 (11:36→20:02)
[2017-12-07] MEDS: CEPHALEXIN 250 MG CAPSULE PO SCH ×3 (11:36→20:03)
[2017-12-07] MEDS: QUEtiapine 25 MG TABLET. PO SCH ×3 (11:37→17:40)
[2017-12-07] MEDS: SENNOSIDES 8.6 MG TABLET PO SCH (11:37)
[2017-12-07] MEDS: ACETAMINOPHEN 325 MG TABLET PO SCH ×2 (11:37→20:02)
[2017-12-07] MEDS: HYDROcodone/APAP 5/325MG 1 TAB TABLET PO PRN (14:11)
[2017-12-07 16:40] VITALS: BP 101/54
[2017-12-07] MEDS: MELATONIN 3 MG TABLET PO SCH (20:02)
[2017-12-07] MEDS: MIRTAZAPINE 15 MG TABLET PO SCH (20:05)
--- NOTE | 2017-12-07 22:54 | PDOC ---
Exam Note: Slava Note: Late entry for date of service December 06, 2017. Please also refer to the separate dictated note~for this date of service dictated separately.~Patient seen individually. Discussed the patient with Nursing staff reviewed the chart.~ Reviewed interim history and current functioning. Reviewed vital signs,~Labs/ Radiology~and current medications noted below. Continue current treatment with the changes noted in the dictated addendum note Assessment: Vital Signs: VS - Last 72 Hours, by Label Date Time Temp Pulse Resp B/P (MAP) Pulse Ox O2 Delivery O2 Flow Rate FiO2 12/07/17 16:40 97.6 81 16 101/54 (70) 99 12/07/17 15:26 94 Room Air 12/07/17 14:11 94 Room Air 12/07/17 06:16 98.1 68 16 103/49 (67) 94 12/06/17 16:25 97.5 62 18 101/57 (72) 94 12/06/17 05:38 97.6 77 17 112/51 (71) 96 12/05/17 16:54 97.3 79 16 107/59 (75) 97 Room Air 12/05/17 06:10 97.5 85 16 104/53 (70) 93 Vital Signs Date Time Temp Pulse Resp B/P (MAP) Pulse Ox O2 Delivery O2 Flow Rate FiO2 12/07/17 16:40 97.6 81 16 101/54 (70) 99 12/07/17 15:26 Room Air I&O Intake and Output 12/07/17 07:00 Intake Total 780 ml Balance 780 ml Intake Oral 780 ml # Bowel Movements 1 Current Medications: Meds: Current Medications Acetaminophen (Tylenol) 650 mg PRN Q6HRS PRN PO PAIN / TEMP; Start 11/12/17 at 22:15; Stop 11/12/17 at 23:06; Status DC Al Hydroxide/Mg Hydroxide (Mylanta Plus Xs) 15 ml PRN AFTMEALHC PRN PO DYSPEPSIA; Start 11/12/17 at 22:15 Magnesium Hydroxide (Milk Of Magnesia) 2,400 mg PRN QHS PRN PO CONSTIPATION Last administered on 12/01/17at 05:33; Start 11/12/17 at 22:15 Lorazepam (Ativan) 0.5 mg TID PO Last administered on 11/14/17at 09:17; Start at 22:30; Stop 11/14/17 at 13:07; Status DC Mirtazapine (Remeron) 15 mg QHS PO Last administered on 12/07/17at 20:05; Start 11/12/17 at 22:30 Acetaminophen (Tylenol) 650 mg BID PO Last administered on 12/07/17at 20:02; Start 11/13/17 at 09:00 Acetaminophen (Tylenol) 650 mg PRN Q4HRS PRN PO PAIN / TEMP; Start 11/12/17 at 23:15 Vitamin D (Vitamin D3) 50,000 unit QTH PO Last administered on 12/05/17at 16:16 ; Start 11/14/17 at 16:00 Clopidogrel Bisulfate (Plavix) 75 mg DAILY PO Last administered on 12/07/17at 11 :36; Start 11/13/17 at 09:00 Levetiracetam (Keppra) 500 mg BID PO Last administered on 11/13/17at 08:34; Start 11/13/17 at 09:00; Stop 11/13/17 at 09:43; Status DC Levothyroxine Sodium (Synthroid) 100 mcg DAILYAC PO Last administered on at 09:17; Start 11/13/17 at 07:30; Stop 11/14/17 at 16:49; Status DC Acetaminophen/ Hydrocodone Bitart (Lortab 5/325) 1 tab PRN Q4HRS PRN PO PAIN Last administered on 12/07/17at 14:11; Start 11/12/17 at 23:15 Triamcinolone Acetonide (Kenalog) 1 jyoti PRN DAILY PRN TP ITCHING/REDNESS; Start 11/12/17 at 23:15 Multivitamins/ Minerals (I-Kevin) 1 tab DAILY PO Last administered on 12/07/17at 11:36; Start 11/13/17 at 09:00 Levetiracetam (Keppra) 500 mg BID PO Last administered on 12/07/17at 20:05; Start 11/13/17 at 10:00 Cyanocobalamin (Vitamin B-12) 1,000 mcg WEEKLY IM Last administered on at 10:20; Start 11/13/17 at 17:30 Lorazepam (Ativan) 0.5 mg BID PO ; Start 11/14/17 at 21:00; Stop 11/14/17 at 21: 00; Status DC Lorazepam (Ativan) 0.25 mg DAILY@1400 PRN PO ANXIETY / AGITATION; Start at 14:00; Stop 11/14/17 at 14:00; Status DC Lorazepam (Ativan) 0.25 mg DAILY PO Last administered on 11/23/17at 08:50; Start 11/16/17 at 09:00; Stop 11/23/17 at 09:01; Status DC Lorazepam (Ativan) 0.25 mg DAILY@1400 PO Last administered on 11/19/17at 13:00; Start 11/14/17 at 14:00; Stop 11/19/17 at 14:02; Status DC Lorazepam (Ativan) 0.5 mg QHS PO Last administered on 11/17/17at 20:05; Start at 21:00; Stop 11/17/17 at 21:01; Status DC Lorazepam (Ativan) 0.25 mg QHS PO Last administered on 11/21/17at 20:07; Start at 21:00; Stop 11/21/17 at 21:01; Status DC Lorazepam (Ativan) 0.5 mg DAILY PO Last administered on 11/15/17at 09:43; Start 11/15/17 at 09:00; Stop 11/15/17 at 09:01; Status DC Levothyroxine Sodium (Synthroid) 100 mcg DAILY06 PO Last administered on at 05:28; Start 11/15/17 at 06:00 Quetiapine Fumarate (SEROquel) 12.5 mg DAILY PO Last administered on 11/30/17at 08:07; Start 11/15/17 at 09:00; Stop 11/30/17 at 20:29; Status DC Olanzapine (ZyPREXA ZYDIS) 1.25 mg PRN Q2HR PRN PO PSYCHOSIS Last administered on 12/07/17at 14:11; Start 11/14/17 at 18:15 Quetiapine Fumarate (SEROquel) 6.25 mg DAILY@1300 PO Last administered on at 14:07; Start 11/20/17 at 13:00; Stop 11/30/17 at 20:29; Status DC Bisacodyl (Dulcolax Supp) 10 mg PRN DAILY PRN [place] CONSTIPATION Last administered on 12/04/17 22:31; Start 11/20/17 at 19:15 Melatonin 3 mg HS PO Last administered on 12/07/17 20:02; Start 11/20/17 at 21: 00 Trazodone HCl (Desyrel) 25 mg PRN QHS PRN PO INSOMNIA, MAY REPEAT X1 Last administered on 12/04/17 22:31; Start 11/22/17 at 18:45 Polyethylene Glycol (miraLAX) 17 gm DAILY PO Last administered on 11/25/17 06: 28; Start 11/24/17 at 09:00; Stop 11/25/17 at 16:07; Status DC Quetiapine Fumarate (SEROquel) 6.25 mg DAILYBFRSUP PO Last administered on 11/30at 17:00; Start 11/24/17 at 19:00; Stop 11/30/17 at 20:32; Status DC Sennosides (Senna) 8.6 mg DAILY PO Last administered on 12/07/17at 11:37; Start 11/26/17 at 09:00 Quetiapine Fumarate (SEROquel) 12.5 mg TIDWMEALS PO Last administered on at 17:40; Start 12/01/17 at 08:00 Quetiapine Fumarate (SEROquel) 12.5 mg TIDWMEALS PO Last administered on at 09:02; Start 12/01/17 at 18:00; Stop 12/02/17 at 09:15; Status DC Cephalexin HCl (Keflex) 500 mg TID PO Last administered on 12/07/17at 20:03; Start 12/06/17 at 21:00 Lactobacillus Rhamnosus (Culturelle) 1 cap BID PO Last administered on at 20:02; Start 12/06/17 at 21:00 Active Scripts Active Reported D3-50 (Cholecalciferol (Vitamin D3)) 50,000 Unit Capsule 50,000 Unit PO QTH Vicodin 5-300 Mg Tablet (Hydrocodone Bit/Acetaminophen) 1 Each Tablet 1 Tab PO PRN Q4HRS PRN Tylenol (Acetaminophen) 325 Mg Tablet 650 Mg PO BID Tylenol (Acetaminophen) 325 Mg Tablet 650 Mg PO PRN Q4HRS PRN Triamcinolone Acetonide 15 Gm Cream..g. 1 Gm TP PRN DAILY PRN Remeron (Mirtazapine) 15 Mg Tablet 7.5 Mg PO QHS Preservision Areds Softgel (Vit A/Vit C/Vit E/Zinc/Copper) 1 Each Capsule 1 Cap PO DAILY Lorazepam 0.5 Mg Tablet 0.5 Mg PO TID Levothyroxine Sodium 100 Mcg Tablet 100 Mcg PO DAILYAC Keppra (Levetiracetam) 500 Mg Tablet 500 Mg PO BID Clopidogrel (Clopidogrel Bisulfate) 75 Mg Tablet 75 Mg PO DAILY I have reviewed the current psychotropics carefully including drug interactions. Risk benefit ratio favors no change other than as noted in my dictated progress note. Diagnosis: Problems: (1) Dementia (2) Combative behavior (3) Anxiety disorder (4) Dementia in Alzheimer's disease with delusions (5) Dementia in Alzheimer's disease with depression (6) Dementia, vascular, with delusions (7) Dementia, vascular, with depression (8) Impulse control disorder (9) Psychosis, atypical AYSHA SEPULVEDA MD December 07, 2017 22:54
--- NOTE | 2017-12-07 23:22 | PDOC ---
Exam Note: Slava Note: Please also refer to the separate dictated note~for this date of service dictated separately.~Patient seen individually. Discussed the patient with Nursing staff reviewed the chart.~Reviewed interim history and current functioning. Reviewed vital signs,~Labs/ Radiology~and current medications noted below. Continue current treatment with the changes noted in the dictated addendum note Assessment: Vital Signs: Vital Signs Date Time Temp Pulse Resp B/P (MAP) Pulse Ox O2 Delivery O2 Flow Rate FiO2 12/07/17 16:40 97.6 81 16 101/54 (70) 99 12/07/17 15:26 Room Air I&O Intake and Output 12/07/17 07:00 Intake Total 780 ml Balance 780 ml Intake Oral 780 ml # Bowel Movements 1 Current Medications: Meds: Current Medications Acetaminophen (Tylenol) 650 mg PRN Q6HRS PRN PO PAIN / TEMP; Start 11/12/17 at 22:15; Stop 11/12/17 at 23:06; Status DC Al Hydroxide/Mg Hydroxide (Mylanta Plus Xs) 15 ml PRN AFTMEALHC PRN PO DYSPEPSIA; Start 11/12/17 at 22:15 Magnesium Hydroxide (Milk Of Magnesia) 2,400 mg PRN QHS PRN PO CONSTIPATION Last administered on 12/01/17at 05:33; Start 11/12/17 at 22:15 Lorazepam (Ativan) 0.5 mg TID PO Last administered on 11/14/17at 09:17; Start at 22:30; Stop 11/14/17 at 13:07; Status DC Mirtazapine (Remeron) 15 mg QHS PO Last administered on 12/07/17at 20:05; Start 11/12/17 at 22:30 Acetaminophen (Tylenol) 650 mg BID PO Last administered on 12/07/17at 20:02; Start 11/13/17 at 09:00 Acetaminophen (Tylenol) 650 mg PRN Q4HRS PRN PO PAIN / TEMP; Start 11/12/17 at 23:15 Vitamin D (Vitamin D3) 50,000 unit QTH PO Last administered on 12/05/17at 16:16 ; Start 11/14/17 at 16:00 Clopidogrel Bisulfate (Plavix) 75 mg DAILY PO Last administered on 12/07/17at 11 :36; Start 11/13/17 at 09:00 Levetiracetam (Keppra) 500 mg BID PO Last administered on 11/13/17at 08:34; Start 11/13/17 at 09:00; Stop 11/13/17 at 09:43; Status DC Levothyroxine Sodium (Synthroid) 100 mcg DAILYAC PO Last administered on at 09:17; Start 11/13/17 at 07:30; Stop 11/14/17 at 16:49; Status DC Acetaminophen/ Hydrocodone Bitart (Lortab 5/325) 1 tab PRN Q4HRS PRN PO PAIN Last administered on 12/07/17at 14:11; Start 11/12/17 at 23:15 Triamcinolone Acetonide (Kenalog) 1 jyoti PRN DAILY PRN TP ITCHING/REDNESS; Start 11/12/17 at 23:15 Multivitamins/ Minerals (I-Kevin) 1 tab DAILY PO Last administered on 12/07/17at 11:36; Start 11/13/17 at 09:00 Levetiracetam (Keppra) 500 mg BID PO Last administered on 12/07/17at 20:05; Start 11/13/17 at 10:00 Cyanocobalamin (Vitamin B-12) 1,000 mcg WEEKLY IM Last administered on at 10:20; Start 11/13/17 at 17:30 Lorazepam (Ativan) 0.5 mg BID PO ; Start 11/14/17 at 21:00; Stop 11/14/17 at 21: 00; Status DC Lorazepam (Ativan) 0.25 mg DAILY@1400 PRN PO ANXIETY / AGITATION; Start at 14:00; Stop 11/14/17 at 14:00; Status DC Lorazepam (Ativan) 0.25 mg DAILY PO Last administered on 11/23/17at 08:50; Start 11/16/17 at 09:00; Stop 11/23/17 at 09:01; Status DC Lorazepam (Ativan) 0.25 mg DAILY@1400 PO Last administered on 11/19/17at 13:00; Start 11/14/17 at 14:00; Stop 11/19/17 at 14:02; Status DC Lorazepam (Ativan) 0.5 mg QHS PO Last administered on 11/17/17 20:05; Start at 21:00; Stop 11/17/17 at 21:01; Status DC Lorazepam (Ativan) 0.25 mg QHS PO Last administered on 11/21/17 20:07; Start at 21:00; Stop 11/21/17 at 21:01; Status DC Lorazepam (Ativan) 0.5 mg DAILY PO Last administered on 11/15/17 09:43; Start 11/15/17 at 09:00; Stop 11/15/17 at 09:01; Status DC Levothyroxine Sodium (Synthroid) 100 mcg DAILY06 PO Last administered on 05:28; Start 11/15/17 at 06:00 Quetiapine Fumarate (SEROquel) 12.5 mg DAILY PO Last administered on 11/30/17 08:07; Start 11/15/17 at 09:00; Stop 11/30/17 at 20:29; Status DC Olanzapine (ZyPREXA ZYDIS) 1.25 mg PRN Q2HR PRN PO PSYCHOSIS Last administered on 12/07/17 14:11; Start 11/14/17 at 18:15 Quetiapine Fumarate (SEROquel) 6.25 mg DAILY@1300 PO Last administered on 14:07; Start 11/20/17 at 13:00; Stop 11/30/17 at 20:29; Status DC Bisacodyl (Dulcolax Supp) 10 mg PRN DAILY PRN [place] CONSTIPATION Last administered on 12/04/17 22:31; Start 11/20/17 at 19:15 Melatonin 3 mg HS PO Last administered on 12/07/17 20:02; Start 11/20/17 at 21: 00 Trazodone HCl (Desyrel) 25 mg PRN QHS PRN PO INSOMNIA, MAY REPEAT X1 Last administered on 12/04/17 22:31; Start 11/22/17 at 18:45 Polyethylene Glycol (miraLAX) 17 gm DAILY PO Last administered on 11/25/17 06: 28; Start 11/24/17 at 09:00; Stop 11/25/17 at 16:07; Status DC Quetiapine Fumarate (SEROquel) 6.25 mg DAILYBFRSUP PO Last administered on 11/30at 17:00; Start 11/24/17 at 19:00; Stop 11/30/17 at 20:32; Status DC Sennosides (Senna) 8.6 mg DAILY PO Last administered on 12/07/17at 11:37; Start 11/26/17 at 09:00 Quetiapine Fumarate (SEROquel) 12.5 mg TIDWMEALS PO Last administered on at 17:40; Start 12/01/17 at 08:00 Quetiapine Fumarate (SEROquel) 12.5 mg TIDWMEALS PO Last administered on at 09:02; Start 12/01/17 at 18:00; Stop 12/02/17 at 09:15; Status DC Cephalexin HCl (Keflex) 500 mg TID PO Last administered on 12/07/17at 20:03; Start 12/06/17 at 21:00 Lactobacillus Rhamnosus (Culturelle) 1 cap BID PO Last administered on at 20:02; Start 12/06/17 at 21:00 Active Scripts Active Reported D3-50 (Cholecalciferol (Vitamin D3)) 50,000 Unit Capsule 50,000 Unit PO QTH Vicodin 5-300 Mg Tablet (Hydrocodone Bit/Acetaminophen) 1 Each Tablet 1 Tab PO PRN Q4HRS PRN Tylenol (Acetaminophen) 325 Mg Tablet 650 Mg PO BID Tylenol (Acetaminophen) 325 Mg Tablet 650 Mg PO PRN Q4HRS PRN Triamcinolone Acetonide 15 Gm Cream..g. 1 Gm TP PRN DAILY PRN Remeron (Mirtazapine) 15 Mg Tablet 7.5 Mg PO QHS Preservision Areds Softgel (Vit A/Vit C/Vit E/Zinc/Copper) 1 Each Capsule 1 Cap PO DAILY Lorazepam 0.5 Mg Tablet 0.5 Mg PO TID Levothyroxine Sodium 100 Mcg Tablet 100 Mcg PO DAILYAC Keppra (Levetiracetam) 500 Mg Tablet 500 Mg PO BID Clopidogrel (Clopidogrel Bisulfate) 75 Mg Tablet 75 Mg PO DAILY I have reviewed the current psychotropics carefully including drug interactions. Risk benefit ratio favors no change other than as noted in my dictated progress note. Diagnosis: Problems: (1) Dementia (2) Combative behavior (3) Anxiety disorder (4) Dementia in Alzheimer's disease with delusions (5) Dementia in Alzheimer's disease with depression (6) Dementia, vascular, with delusions (7) Dementia, vascular, with depression (8) Impulse control disorder (9) Psychosis, atypical AYSHA SEPULVEDA MD December 07, 2017 23:21
[2017-12-08] MEDS: traZODone 50 MG TABLET. PO PRN (00:29)
[2017-12-08] MEDS: LEVOTHYROXINE 100 MCG TABLET PO SCH (05:42)
[2017-12-08 06:10] VITALS: BP 92/55
[2017-12-08] MEDS: QUEtiapine 25 MG TABLET. PO SCH ×3 (08:57→17:20)
[2017-12-08] MEDS: MULTIVITAMIN I-VITE TABLET. PO SCH (08:57)
[2017-12-08] MEDS: SENNOSIDES 8.6 MG TABLET PO SCH (08:57)
[2017-12-08] MEDS: ACETAMINOPHEN 325 MG TABLET PO SCH ×2 (08:58→20:31)
[2017-12-08] MEDS: CLOPIDOGREL BISULFATE 75 MG TABLET PO SCH (08:58)
[2017-12-08] MEDS: LACTOBACILLUS RHAMNOSUS GG 1 CAPSULE. PO SCH ×2 (08:58→20:31)
[2017-12-08] MEDS: CEPHALEXIN 250 MG CAPSULE PO SCH ×3 (08:58→20:30)
[2017-12-08 15:43] VITALS: BP 109/52
[2017-12-08] MEDS: MIRTAZAPINE 15 MG TABLET PO SCH (20:30)
[2017-12-08] MEDS: MELATONIN 3 MG TABLET PO SCH (20:31)
--- NOTE | 2017-12-08 20:52 | PDOC ---
Exam Note: Slava Note: Please also refer to the separate dictated note~for this date of service dictated separately.~Patient seen individually. Discussed the patient with Nursing staff reviewed the chart.~Reviewed interim history and current functioning. Reviewed vital signs,~Labs/ Radiology~and current medications noted below. Continue current treatment with the changes noted in the dictated addendum note Assessment: Vital Signs: Vital Signs Date Time Temp Pulse Resp B/P (MAP) Pulse Ox O2 Delivery O2 Flow Rate FiO2 12/08/17 15:43 97.4 82 17 109/52 (71) 94 12/07/17 15:26 Room Air I&O Intake and Output 12/08/17 07:00 Intake Total 1800 ml Balance 1800 ml Intake Oral 1800 ml # Voids 2 Current Medications: Meds: Current Medications Acetaminophen (Tylenol) 650 mg PRN Q6HRS PRN PO PAIN / TEMP; Start 11/12/17 at 22:15; Stop 11/12/17 at 23:06; Status DC Al Hydroxide/Mg Hydroxide (Mylanta Plus Xs) 15 ml PRN AFTMEALHC PRN PO DYSPEPSIA; Start 11/12/17 at 22:15 Magnesium Hydroxide (Milk Of Magnesia) 2,400 mg PRN QHS PRN PO CONSTIPATION Last administered on 12/01/17at 05:33; Start 11/12/17 at 22:15 Lorazepam (Ativan) 0.5 mg TID PO Last administered on 11/14/17at 09:17; Start at 22:30; Stop 11/14/17 at 13:07; Status DC Mirtazapine (Remeron) 15 mg QHS PO Last administered on 12/08/17at 20:30; Start 11/12/17 at 22:30 Acetaminophen (Tylenol) 650 mg BID PO Last administered on 12/08/17at 20:31; Start 11/13/17 at 09:00 Acetaminophen (Tylenol) 650 mg PRN Q4HRS PRN PO PAIN / TEMP; Start 11/12/17 at 23:15 Vitamin D (Vitamin D3) 50,000 unit QTH PO Last administered on 12/05/17at 16:16 ; Start 11/14/17 at 16:00 Clopidogrel Bisulfate (Plavix) 75 mg DAILY PO Last administered on 12/08/17at 08 :58; Start 11/13/17 at 09:00 Levetiracetam (Keppra) 500 mg BID PO Last administered on 11/13/17at 08:34; Start 11/13/17 at 09:00; Stop 11/13/17 at 09:43; Status DC Levothyroxine Sodium (Synthroid) 100 mcg DAILYAC PO Last administered on at 09:17; Start 11/13/17 at 07:30; Stop 11/14/17 at 16:49; Status DC Acetaminophen/ Hydrocodone Bitart (Lortab 5/325) 1 tab PRN Q4HRS PRN PO PAIN Last administered on 12/07/17at 14:11; Start 11/12/17 at 23:15 Triamcinolone Acetonide (Kenalog) 1 jyoti PRN DAILY PRN TP ITCHING/REDNESS; Start 11/12/17 at 23:15 Multivitamins/ Minerals (I-Kevin) 1 tab DAILY PO Last administered on 12/08/17at 08:57; Start 11/13/17 at 09:00 Levetiracetam (Keppra) 500 mg BID PO Last administered on 12/08/17at 20:33; Start 11/13/17 at 10:00 Cyanocobalamin (Vitamin B-12) 1,000 mcg WEEKLY IM Last administered on at 10:20; Start 11/13/17 at 17:30 Lorazepam (Ativan) 0.5 mg BID PO ; Start 11/14/17 at 21:00; Stop 11/14/17 at 21: 00; Status DC Lorazepam (Ativan) 0.25 mg DAILY@1400 PRN PO ANXIETY / AGITATION; Start at 14:00; Stop 11/14/17 at 14:00; Status DC Lorazepam (Ativan) 0.25 mg DAILY PO Last administered on 11/23/17at 08:50; Start 11/16/17 at 09:00; Stop 11/23/17 at 09:01; Status DC Lorazepam (Ativan) 0.25 mg DAILY@1400 PO Last administered on 11/19/17at 13:00; Start 11/14/17 at 14:00; Stop 11/19/17 at 14:02; Status DC Lorazepam (Ativan) 0.5 mg QHS PO Last administered on 11/17/17 20:05; Start at 21:00; Stop 11/17/17 at 21:01; Status DC Lorazepam (Ativan) 0.25 mg QHS PO Last administered on 11/21/17 20:07; Start at 21:00; Stop 11/21/17 at 21:01; Status DC Lorazepam (Ativan) 0.5 mg DAILY PO Last administered on 11/15/17 09:43; Start 11/15/17 at 09:00; Stop 11/15/17 at 09:01; Status DC Levothyroxine Sodium (Synthroid) 100 mcg DAILY06 PO Last administered on 05:42; Start 11/15/17 at 06:00 Quetiapine Fumarate (SEROquel) 12.5 mg DAILY PO Last administered on 11/30/17 08:07; Start 11/15/17 at 09:00; Stop 11/30/17 at 20:29; Status DC Olanzapine (ZyPREXA ZYDIS) 1.25 mg PRN Q2HR PRN PO PSYCHOSIS Last administered on 12/07/17at 14:11; Start 11/14/17 at 18:15 Quetiapine Fumarate (SEROquel) 6.25 mg DAILY@1300 PO Last administered on 14:07; Start 11/20/17 at 13:00; Stop 11/30/17 at 20:29; Status DC Bisacodyl (Dulcolax Supp) 10 mg PRN DAILY PRN [place] CONSTIPATION Last administered on 12/04/17at 22:31; Start 11/20/17 at 19:15 Melatonin 3 mg HS PO Last administered on 12/08/17 20:31; Start 11/20/17 at 21: 00 Trazodone HCl (Desyrel) 25 mg PRN QHS PRN PO INSOMNIA, MAY REPEAT X1 Last administered on 12/08/17at 00:29; Start 11/22/17 at 18:45 Polyethylene Glycol (miraLAX) 17 gm DAILY PO Last administered on 11/25/17at 06: 28; Start 11/24/17 at 09:00; Stop 11/25/17 at 16:07; Status DC Quetiapine Fumarate (SEROquel) 6.25 mg DAILYBFRSUP PO Last administered on 11/30at 17:00; Start 11/24/17 at 19:00; Stop 11/30/17 at 20:32; Status DC Sennosides (Senna) 8.6 mg DAILY PO Last administered on 12/08/17at 08:57; Start 11/26/17 at 09:00 Quetiapine Fumarate (SEROquel) 12.5 mg TIDWMEALS PO Last administered on at 17:20; Start 12/01/17 at 08:00 Quetiapine Fumarate (SEROquel) 12.5 mg TIDWMEALS PO Last administered on at 09:02; Start 12/01/17 at 18:00; Stop 12/02/17 at 09:15; Status DC Cephalexin HCl (Keflex) 500 mg TID PO Last administered on 12/08/17at 20:30; Start 12/06/17 at 21:00 Lactobacillus Rhamnosus (Culturelle) 1 cap BID PO Last administered on at 20:31; Start 12/06/17 at 21:00 Active Scripts Active Reported D3-50 (Cholecalciferol (Vitamin D3)) 50,000 Unit Capsule 50,000 Unit PO QTH Vicodin 5-300 Mg Tablet (Hydrocodone Bit/Acetaminophen) 1 Each Tablet 1 Tab PO PRN Q4HRS PRN Tylenol (Acetaminophen) 325 Mg Tablet 650 Mg PO BID Tylenol (Acetaminophen) 325 Mg Tablet 650 Mg PO PRN Q4HRS PRN Triamcinolone Acetonide 15 Gm Cream..g. 1 Gm TP PRN DAILY PRN Remeron (Mirtazapine) 15 Mg Tablet 7.5 Mg PO QHS Preservision Areds Softgel (Vit A/Vit C/Vit E/Zinc/Copper) 1 Each Capsule 1 Cap PO DAILY Lorazepam 0.5 Mg Tablet 0.5 Mg PO TID Levothyroxine Sodium 100 Mcg Tablet 100 Mcg PO DAILYAC Keppra (Levetiracetam) 500 Mg Tablet 500 Mg PO BID Clopidogrel (Clopidogrel Bisulfate) 75 Mg Tablet 75 Mg PO DAILY I have reviewed the current psychotropics carefully including drug interactions. Risk benefit ratio favors no change other than as noted in my dictated progress note. Diagnosis: Problems: (1) Dementia (2) Combative behavior (3) Anxiety disorder (4) Dementia in Alzheimer's disease with delusions (5) Dementia in Alzheimer's disease with depression (6) Dementia, vascular, with delusions (7) Dementia, vascular, with depression (8) Impulse control disorder (9) Psychosis, atypical AYSHA SEPULVEDA MD December 08, 2017 20:52
[2017-12-09 06:11] VITALS: BP 113/52
[2017-12-09] MEDS: LEVOTHYROXINE 100 MCG TABLET PO SCH (06:19)
--- NOTE | 2017-12-09 07:38 | PN ---
DATE: 12/06/2017 This late entry 12/06/2017 covers elements not covered in my initial note 12/06/2017. Met with the patient in the evening. The patient slept 7-3/4 hours, compliant with medications, restless, anxious, confused. Urine C and S is back, Dr. Martins had started Keflex. REVIEW OF SYSTEMS: No CV, , pulmonary, eye, ENT system symptoms on review. Reliability poor. Gait unsteady in wheelchair. MENTAL STATUS EXAM: Oriented to himself. Insight, judgment, recent and remote memory, attention, concentration, fund of knowledge poor, consistent with his diagnosis mentioned in my initial note. PLAN: Continue current psychotropics. Treat UTI. Adjust further as clinically indicated. MAN Rosas SEPULVEDA MD DR: CHASE/wally JOB#: [id number] / [id number]
[2017-12-09] MEDS: LACTOBACILLUS RHAMNOSUS GG 1 CAPSULE. PO SCH ×2 (08:09→20:25)
[2017-12-09] MEDS: CLOPIDOGREL BISULFATE 75 MG TABLET PO SCH (08:09)
[2017-12-09] MEDS: MULTIVITAMIN I-VITE TABLET. PO SCH (08:09)
[2017-12-09] MEDS: ACETAMINOPHEN 325 MG TABLET PO SCH ×2 (08:09→20:24)
[2017-12-09] MEDS: QUEtiapine 25 MG TABLET. PO SCH ×3 (08:09→17:00)
[2017-12-09] MEDS: SENNOSIDES 8.6 MG TABLET PO SCH (08:09)
[2017-12-09] MEDS: CEPHALEXIN 250 MG CAPSULE PO SCH ×3 (08:11→20:24)
--- NOTE | 2017-12-09 13:18 | PN ---
DATE: 12/07/2017 This is a late entry 12/07/2017, covers the elements not covered in my initial note 12/07/2017. Met with the patient in the evening, the patient slept 8-1/2 hours, somewhat agitated in the morning. I spoke to his son and then was crying, tearful, got some Zyprexa p.r.n., then was calmer. UA is positive for UTI. He is on Keflex for this per Dr. Martins. REVIEW OF SYSTEMS: Ambulation impaired, in wheelchair. No CV, , pulmonary, eye, ENT system symptoms on review. Reliability poor. MENTAL STATUS EXAM: Oriented to himself. Insight, judgment, recent and remote memory, attention, concentration, fund of knowledge poor, consistent with his diagnosis mentioned in my initial note. PLAN: Continue current psychotropics and Keflex for UTI, adjust as indicated. MAN Rosas SEPULVEDA MD DR: CHASE/wally JOB#: [id number] / [id number]
[2017-12-09 16:21] VITALS: BP 93/55
[2017-12-09] MEDS: MELATONIN 3 MG TABLET PO SCH (20:24)
[2017-12-09] MEDS: MIRTAZAPINE 15 MG TABLET PO SCH (20:25)
--- NOTE | 2017-12-09 20:52 | PDOC ---
Exam Note: Slava Note: Please also refer to the separate dictated note~for this date of service dictated separately.~Patient seen individually. Discussed the patient with Nursing staff reviewed the chart.~Reviewed interim history and current functioning. Reviewed vital signs,~Labs/ Radiology~and current medications noted below. Continue current treatment with the changes noted in the dictated addendum note Assessment: Vital Signs: Vital Signs Date Time Temp Pulse Resp B/P (MAP) Pulse Ox O2 Delivery O2 Flow Rate FiO2 12/09/17 16:21 97.7 85 20 93/55 (68) 96 12/07/17 15:26 Room Air I&O Intake and Output 12/09/17 07:00 Intake Total 960 ml Balance 960 ml Intake Oral 960 ml Current Medications: Meds: Current Medications Acetaminophen (Tylenol) 650 mg PRN Q6HRS PRN PO PAIN / TEMP; Start 11/12/17 at 22:15; Stop 11/12/17 at 23:06; Status DC Al Hydroxide/Mg Hydroxide (Mylanta Plus Xs) 15 ml PRN AFTMEALHC PRN PO DYSPEPSIA; Start 11/12/17 at 22:15 Magnesium Hydroxide (Milk Of Magnesia) 2,400 mg PRN QHS PRN PO CONSTIPATION Last administered on 12/01/17at 05:33; Start 11/12/17 at 22:15 Lorazepam (Ativan) 0.5 mg TID PO Last administered on 11/14/17at 09:17; Start at 22:30; Stop 11/14/17 at 13:07; Status DC Mirtazapine (Remeron) 15 mg QHS PO Last administered on 12/09/17at 20:25; Start 11/12/17 at 22:30 Acetaminophen (Tylenol) 650 mg BID PO Last administered on 12/09/17at 20:24; Start 11/13/17 at 09:00 Acetaminophen (Tylenol) 650 mg PRN Q4HRS PRN PO PAIN / TEMP; Start 11/12/17 at 23:15 Vitamin D (Vitamin D3) 50,000 unit QTH PO Last administered on 12/05/17at 16:16 ; Start 11/14/17 at 16:00 Clopidogrel Bisulfate (Plavix) 75 mg DAILY PO Last administered on 12/09/17at 08 :09; Start 11/13/17 at 09:00 Levetiracetam (Keppra) 500 mg BID PO Last administered on 11/13/17at 08:34; Start 11/13/17 at 09:00; Stop 11/13/17 at 09:43; Status DC Levothyroxine Sodium (Synthroid) 100 mcg DAILYAC PO Last administered on at 09:17; Start 11/13/17 at 07:30; Stop 11/14/17 at 16:49; Status DC Acetaminophen/ Hydrocodone Bitart (Lortab 5/325) 1 tab PRN Q4HRS PRN PO PAIN Last administered on 12/07/17at 14:11; Start 11/12/17 at 23:15 Triamcinolone Acetonide (Kenalog) 1 jyoti PRN DAILY PRN TP ITCHING/REDNESS; Start 11/12/17 at 23:15 Multivitamins/ Minerals (I-Kevin) 1 tab DAILY PO Last administered on 12/09/17at 08:09; Start 11/13/17 at 09:00 Levetiracetam (Keppra) 500 mg BID PO Last administered on 12/09/17at 20:26; Start 11/13/17 at 10:00 Cyanocobalamin (Vitamin B-12) 1,000 mcg WEEKLY IM Last administered on at 10:20; Start 11/13/17 at 17:30 Lorazepam (Ativan) 0.5 mg BID PO ; Start 11/14/17 at 21:00; Stop 11/14/17 at 21: 00; Status DC Lorazepam (Ativan) 0.25 mg DAILY@1400 PRN PO ANXIETY / AGITATION; Start at 14:00; Stop 11/14/17 at 14:00; Status DC Lorazepam (Ativan) 0.25 mg DAILY PO Last administered on 11/23/17at 08:50; Start 11/16/17 at 09:00; Stop 11/23/17 at 09:01; Status DC Lorazepam (Ativan) 0.25 mg DAILY@1400 PO Last administered on 11/19/17at 13:00; Start 11/14/17 at 14:00; Stop 11/19/17 at 14:02; Status DC Lorazepam (Ativan) 0.5 mg QHS PO Last administered on 11/17/17 20:05; Start at 21:00; Stop 11/17/17 at 21:01; Status DC Lorazepam (Ativan) 0.25 mg QHS PO Last administered on 11/21/17 20:07; Start at 21:00; Stop 11/21/17 at 21:01; Status DC Lorazepam (Ativan) 0.5 mg DAILY PO Last administered on 11/15/17 09:43; Start 11/15/17 at 09:00; Stop 11/15/17 at 09:01; Status DC Levothyroxine Sodium (Synthroid) 100 mcg DAILY06 PO Last administered on 06:19; Start 11/15/17 at 06:00 Quetiapine Fumarate (SEROquel) 12.5 mg DAILY PO Last administered on 11/30/17 08:07; Start 11/15/17 at 09:00; Stop 11/30/17 at 20:29; Status DC Olanzapine (ZyPREXA ZYDIS) 1.25 mg PRN Q2HR PRN PO PSYCHOSIS Last administered on 12/07/17at 14:11; Start 11/14/17 at 18:15 Quetiapine Fumarate (SEROquel) 6.25 mg DAILY@1300 PO Last administered on 14:07; Start 11/20/17 at 13:00; Stop 11/30/17 at 20:29; Status DC Bisacodyl (Dulcolax Supp) 10 mg PRN DAILY PRN ID CONSTIPATION Last administered on 12/04/17at 22:31; Start 11/20/17 at 19:15 Melatonin 3 mg HS PO Last administered on 12/09/17at 20:24; Start 11/20/17 at 21: 00 Trazodone HCl (Desyrel) 25 mg PRN QHS PRN PO INSOMNIA, MAY REPEAT X1 Last administered on 12/08/17at 00:29; Start 11/22/17 at 18:45 Polyethylene Glycol (miraLAX) 17 gm DAILY PO Last administered on 11/25/17at 06: 28; Start 11/24/17 at 09:00; Stop 11/25/17 at 16:07; Status DC Quetiapine Fumarate (SEROquel) 6.25 mg DAILYBFRSUP PO Last administered on 11/30at 17:00; Start 11/24/17 at 19:00; Stop 11/30/17 at 20:32; Status DC Sennosides (Senna) 8.6 mg DAILY PO Last administered on 12/09/17at 08:09; Start 11/26/17 at 09:00 Quetiapine Fumarate (SEROquel) 12.5 mg TIDWMEALS PO Last administered on at 17:00; Start 12/01/17 at 08:00 Quetiapine Fumarate (SEROquel) 12.5 mg TIDWMEALS PO Last administered on at 09:02; Start 12/01/17 at 18:00; Stop 12/02/17 at 09:15; Status DC Cephalexin HCl (Keflex) 500 mg TID PO Last administered on 12/09/17at 20:24; Start 12/06/17 at 21:00 Lactobacillus Rhamnosus (Culturelle) 1 cap BID PO Last administered on at 20:25; Start 12/06/17 at 21:00 Active Scripts Active Reported D3-50 (Cholecalciferol (Vitamin D3)) 50,000 Unit Capsule 50,000 Unit PO QTH Vicodin 5-300 Mg Tablet (Hydrocodone Bit/Acetaminophen) 1 Each Tablet 1 Tab PO PRN Q4HRS PRN Tylenol (Acetaminophen) 325 Mg Tablet 650 Mg PO BID Tylenol (Acetaminophen) 325 Mg Tablet 650 Mg PO PRN Q4HRS PRN Triamcinolone Acetonide 15 Gm Cream..g. 1 Gm TP PRN DAILY PRN Remeron (Mirtazapine) 15 Mg Tablet 7.5 Mg PO QHS Preservision Areds Softgel (Vit A/Vit C/Vit E/Zinc/Copper) 1 Each Capsule 1 Cap PO DAILY Lorazepam 0.5 Mg Tablet 0.5 Mg PO TID Levothyroxine Sodium 100 Mcg Tablet 100 Mcg PO DAILYAC Keppra (Levetiracetam) 500 Mg Tablet 500 Mg PO BID Clopidogrel (Clopidogrel Bisulfate) 75 Mg Tablet 75 Mg PO DAILY I have reviewed the current psychotropics carefully including drug interactions. Risk benefit ratio favors no change other than as noted in my dictated progress note. Diagnosis: Problems: (1) Dementia (2) Combative behavior (3) Anxiety disorder (4) Dementia in Alzheimer's disease with delusions (5) Dementia in Alzheimer's disease with depression (6) Dementia, vascular, with delusions (7) Dementia, vascular, with depression (8) Impulse control disorder (9) Psychosis, atypical AYSHA SEPULVEDA MD December 09, 2017 20:52
--- NOTE | 2017-12-10 00:22 | PN ---
DATE: 12/08/2017 PSYCHIATRIC PROGRESS NOTE This late entry 12/08/2017 covers elements not covered in my initial note of 12/08/2017. SUBJECTIVE: Met with the patient in the evening. Overall, the patient remains confused, more compliant, responding to the Augmentin for his UTI. REVIEW OF SYSTEMS: No CV, , pulmonary, eye, ENT system symptoms on review. Reliability is poor. Gait is unsteady, in his wheelchair. MENTAL STATUS EXAM: Oriented to himself. Insight, judgment, recent and remote memory, attention, concentration, fund of knowledge is poor, consistent with his diagnoses mentioned in my initial note. IMPRESSION: Major neurocognitive disorder, Alzheimer, vascular with delusion, depression, behavioral disturbance. Rest is unchanged. PLAN: Continue current psychotropics, treat the UTI and Augmentin, adjust as clinically indicated. MAN Rosas SEPULVEDA MD DR: CHASE/wally JOB#: [id number] / [id number]
--- NOTE | 2017-12-10 04:01 | PN ---
DATE: 12/09/2017 SUBJECTIVE: The patient was seen today, met with the staff, chart reviewed and also covering for Dr. Pena. Staff reports increased agitation, mood swings, confusion and also difficult to redirect. The patient is also on wheelchair. The patient has not had any falls recently. OBSERVATION: VITAL SIGNS: Temperature 97.6, blood pressure 113/52, pulse 79, respirations 16 and O2 sat 97%. Slept about 6 hours last night. The patient also has a recent yeast UTI. The patient also apparently has episodes where he becomes very emotional. MEDICATIONS: The patient's current medications include Seroquel 12.5 mg t.i.d., trazodone 25 mg at night p.r.n., melatonin 3 mg at night, olanzapine 1.25 mg q. 2 hours p.r.n., Keppra 500 mg b.i.d. and mirtazapine 15 mg at night. The patient is also on Plavix, Synthroid and Keflex. ASSESSMENT: 1. Major neurocognitive disorder, most likely Alzheimer's and vascular with depression, delusions and behavioral disturbances. 2. Anxiety disorder. 3. Impulse control disorder, unspecified. PLAN: Continue with the treatment. BOB GANDHI MD DR: JOANA/wally JOB#: [id number] / [id number]
[2017-12-10] MEDS: LEVOTHYROXINE 100 MCG TABLET PO SCH (06:07)
[2017-12-10 06:30] VITALS: BP 101/54
[2017-12-10] MEDS: SENNOSIDES 8.6 MG TABLET PO SCH (08:42)
[2017-12-10] MEDS: QUEtiapine 25 MG TABLET. PO SCH ×4 (08:43→20:20)
[2017-12-10] MEDS: ACETAMINOPHEN 325 MG TABLET PO SCH ×2 (08:43→20:16)
[2017-12-10] MEDS: CLOPIDOGREL BISULFATE 75 MG TABLET PO SCH (08:43)
[2017-12-10] MEDS: LACTOBACILLUS RHAMNOSUS GG 1 CAPSULE. PO SCH ×2 (08:43→20:16)
[2017-12-10] MEDS: MULTIVITAMIN I-VITE TABLET. PO SCH (08:44)
[2017-12-10] MEDS: CEPHALEXIN 250 MG CAPSULE PO SCH ×3 (08:44→20:16)
[2017-12-10 16:51] VITALS: BP 91/50
[2017-12-10] MEDS: MELATONIN 3 MG TABLET PO SCH (20:16)
[2017-12-10] MEDS: MIRTAZAPINE 15 MG TABLET PO SCH (20:17)
[2017-12-11] MEDS: LEVOTHYROXINE 100 MCG TABLET PO SCH (06:24)
[2017-12-11 06:43] VITALS: BP 99/50
[2017-12-11] MEDS: CLOPIDOGREL BISULFATE 75 MG TABLET PO SCH (08:09)
[2017-12-11] MEDS: MULTIVITAMIN I-VITE TABLET. PO SCH (08:09)
[2017-12-11] MEDS: LACTOBACILLUS RHAMNOSUS GG 1 CAPSULE. PO SCH ×2 (08:09→20:24)
[2017-12-11] MEDS: CEPHALEXIN 250 MG CAPSULE PO SCH ×3 (08:09→20:23)
[2017-12-11] MEDS: QUEtiapine 25 MG TABLET. PO SCH ×4 (08:10→20:24)
[2017-12-11] MEDS: ACETAMINOPHEN 325 MG TABLET PO SCH ×2 (08:11→20:25)
[2017-12-11] MEDS: SENNOSIDES 8.6 MG TABLET PO SCH (08:13)
[2017-12-11] MEDS: CYANOCOBALAMIN (VITAMIN B-12) 1,000 MCG/ML VIAL IM SCH (08:14)
[2017-12-11 16:46] VITALS: BP 96/58
--- NOTE | 2017-12-11 20:13 | PDOC ---
Exam Note: Slava Note: Late entry for date of service December 10, 2017. Please also refer to the separate dictated note~for this date of service dictated separately.~Patient seen individually. Discussed the patient with Nursing staff reviewed the chart.~ Reviewed interim history and current functioning. Reviewed vital signs,~Labs/ Radiology~and current medications noted below. Continue current treatment with the changes noted in the dictated addendum note Assessment: Vital Signs: VS - Last 72 Hours, by Label Date Time Temp Pulse Resp B/P (MAP) Pulse Ox O2 Delivery O2 Flow Rate FiO2 12/11/17 16:46 98.0 93 20 96/58 (71) 94 12/11/17 06:43 98.1 75 18 99/50 (66) 95 12/10/17 16:51 97.1 83 18 91/50 (64) 97 Room Air 12/10/17 06:30 97.9 70 16 101/54 (70) 94 12/09/17 16:21 97.7 85 20 93/55 (68) 96 12/09/17 06:11 97.6 79 16 113/52 (72) 97 Vital Signs Date Time Temp Pulse Resp B/P (MAP) Pulse Ox O2 Delivery O2 Flow Rate FiO2 12/11/17 16:46 98.0 93 20 96/58 (71) 94 12/10/17 16:51 Room Air I&O Intake and Output 12/11/17 07:00 Intake Total 1260 ml Balance 1260 ml Intake Oral 1260 ml Current Medications: Meds: Current Medications Acetaminophen (Tylenol) 650 mg PRN Q6HRS PRN PO PAIN / TEMP; Start 11/12/17 at 22:15; Stop 11/12/17 at 23:06; Status DC Al Hydroxide/Mg Hydroxide (Mylanta Plus Xs) 15 ml PRN AFTMEALHC PRN PO DYSPEPSIA; Start 11/12/17 at 22:15 Magnesium Hydroxide (Milk Of Magnesia) 2,400 mg PRN QHS PRN PO CONSTIPATION Last administered on 12/01/17at 05:33; Start 11/12/17 at 22:15 Lorazepam (Ativan) 0.5 mg TID PO Last administered on 11/14/17at 09:17; Start at 22:30; Stop 11/14/17 at 13:07; Status DC Mirtazapine (Remeron) 15 mg QHS PO Last administered on 12/10/17at 20:17; Start 11/12/17 at 22:30 Acetaminophen (Tylenol) 650 mg BID PO Last administered on 12/11/17at 08:11; Start 11/13/17 at 09:00 Acetaminophen (Tylenol) 650 mg PRN Q4HRS PRN PO PAIN / TEMP; Start 11/12/17 at 23:15 Vitamin D (Vitamin D3) 50,000 unit QTH PO Last administered on 12/05/17at 16:16 ; Start 11/14/17 at 16:00 Clopidogrel Bisulfate (Plavix) 75 mg DAILY PO Last administered on 12/11/17 08 :09; Start 11/13/17 at 09:00 Levetiracetam (Keppra) 500 mg BID PO Last administered on 11/13/17at 08:34; Start 11/13/17 at 09:00; Stop 11/13/17 at 09:43; Status DC Levothyroxine Sodium (Synthroid) 100 mcg DAILYAC PO Last administered on 09:17; Start 11/13/17 at 07:30; Stop 11/14/17 at 16:49; Status DC Acetaminophen/ Hydrocodone Bitart (Lortab 5/325) 1 tab PRN Q4HRS PRN PO PAIN Last administered on 12/07/17at 14:11; Start 11/12/17 at 23:15 Triamcinolone Acetonide (Kenalog) 1 jyoti PRN DAILY PRN TP ITCHING/REDNESS; Start 11/12/17 at 23:15 Multivitamins/ Minerals (I-Kevin) 1 tab DAILY PO Last administered on 12/11/17 08:09; Start 11/13/17 at 09:00 Levetiracetam (Keppra) 500 mg BID PO Last administered on 12/11/17 08:17; Start 11/13/17 at 10:00 Cyanocobalamin (Vitamin B-12) 1,000 mcg WEEKLY IM Last administered on at 08:14; Start 11/13/17 at 17:30 Lorazepam (Ativan) 0.5 mg BID PO ; Start 11/14/17 at 21:00; Stop 11/14/17 at 21: 00; Status DC Lorazepam (Ativan) 0.25 mg DAILY@1400 PRN PO ANXIETY / AGITATION; Start at 14:00; Stop 11/14/17 at 14:00; Status DC Lorazepam (Ativan) 0.25 mg DAILY PO Last administered on 11/23/17at 08:50; Start 11/16/17 at 09:00; Stop 11/23/17 at 09:01; Status DC Lorazepam (Ativan) 0.25 mg DAILY@1400 PO Last administered on 11/19/17at 13:00; Start 11/14/17 at 14:00; Stop 11/19/17 at 14:02; Status DC Lorazepam (Ativan) 0.5 mg QHS PO Last administered on 11/17/17at 20:05; Start at 21:00; Stop 11/17/17 at 21:01; Status DC Lorazepam (Ativan) 0.25 mg QHS PO Last administered on 11/21/17at 20:07; Start at 21:00; Stop 11/21/17 at 21:01; Status DC Lorazepam (Ativan) 0.5 mg DAILY PO Last administered on 11/15/17at 09:43; Start 11/15/17 at 09:00; Stop 11/15/17 at 09:01; Status DC Levothyroxine Sodium (Synthroid) 100 mcg DAILY06 PO Last administered on at 06:24; Start 11/15/17 at 06:00 Quetiapine Fumarate (SEROquel) 12.5 mg DAILY PO Last administered on 11/30/17at 08:07; Start 11/15/17 at 09:00; Stop 11/30/17 at 20:29; Status DC Olanzapine (ZyPREXA ZYDIS) 1.25 mg PRN Q2HR PRN PO PSYCHOSIS Last administered on 12/10/17at 18:29; Start 11/14/17 at 18:15 Quetiapine Fumarate (SEROquel) 6.25 mg DAILY@1300 PO Last administered on at 14:07; Start 11/20/17 at 13:00; Stop 11/30/17 at 20:29; Status DC Bisacodyl (Dulcolax Supp) 10 mg PRN DAILY PRN [place] CONSTIPATION Last administered on 12/04/17 22:31; Start 11/20/17 at 19:15 Melatonin 3 mg HS PO Last administered on 12/10/17 20:16; Start 11/20/17 at 21: 00 Trazodone HCl (Desyrel) 25 mg PRN QHS PRN PO INSOMNIA, MAY REPEAT X1 Last administered on 12/08/17 00:29; Start 11/22/17 at 18:45 Polyethylene Glycol (miraLAX) 17 gm DAILY PO Last administered on 11/25/17 06: 28; Start 11/24/17 at 09:00; Stop 11/25/17 at 16:07; Status DC Quetiapine Fumarate (SEROquel) 6.25 mg DAILYBFRSUP PO Last administered on 11/30 17:00; Start 11/24/17 at 19:00; Stop 11/30/17 at 20:32; Status DC Sennosides (Senna) 8.6 mg DAILY PO Last administered on 12/10/17at 08:42; Start 11/26/17 at 09:00 Quetiapine Fumarate (SEROquel) 12.5 mg TIDWMEALS PO Last administered on 17:00; Start 12/01/17 at 08:00; Stop 12/10/17 at 18:48; Status DC Quetiapine Fumarate (SEROquel) 12.5 mg TIDWMEALS PO Last administered on 09:02; Start 12/01/17 at 18:00; Stop 12/02/17 at 09:15; Status DC Cephalexin HCl (Keflex) 500 mg TID PO Last administered on 12/11/17 13:57; Start 12/06/17 at 21:00 Lactobacillus Rhamnosus (Culturelle) 1 cap BID PO Last administered on 08:09; Start 12/06/17 at 21:00 Quetiapine Fumarate (SEROquel) 12.5 mg QID PO Last administered on 12/11/17 17 :29; Start 12/10/17 at 21:00 Active Scripts Active Reported D3-50 (Cholecalciferol (Vitamin D3)) 50,000 Unit Capsule 50,000 Unit PO QTH Vicodin 5-300 Mg Tablet (Hydrocodone Bit/Acetaminophen) 1 Each Tablet 1 Tab PO PRN Q4HRS PRN Tylenol (Acetaminophen) 325 Mg Tablet 650 Mg PO BID Tylenol (Acetaminophen) 325 Mg Tablet 650 Mg PO PRN Q4HRS PRN Triamcinolone Acetonide 15 Gm Cream..g. 1 Gm TP PRN DAILY PRN Remeron (Mirtazapine) 15 Mg Tablet 7.5 Mg PO QHS Preservision Areds Softgel (Vit A/Vit C/Vit E/Zinc/Copper) 1 Each Capsule 1 Cap PO DAILY Lorazepam 0.5 Mg Tablet 0.5 Mg PO TID Levothyroxine Sodium 100 Mcg Tablet 100 Mcg PO DAILYAC Keppra (Levetiracetam) 500 Mg Tablet 500 Mg PO BID Clopidogrel (Clopidogrel Bisulfate) 75 Mg Tablet 75 Mg PO DAILY I have reviewed the current psychotropics carefully including drug interactions. Risk benefit ratio favors no change other than as noted in my dictated progress note. Diagnosis: Problems: (1) Dementia (2) Combative behavior (3) Anxiety disorder (4) Dementia in Alzheimer's disease with delusions (5) Dementia in Alzheimer's disease with depression (6) Dementia, vascular, with delusions (7) Dementia, vascular, with depression (8) Impulse control disorder (9) Psychosis, atypical AYSHA SEPULVEDA MD December 11, 2017 20:13
[2017-12-11] MEDS: MELATONIN 3 MG TABLET PO SCH (20:24)
[2017-12-11] MEDS: MIRTAZAPINE 15 MG TABLET PO SCH (20:25)
--- NOTE | 2017-12-11 20:38 | PDOC ---
Exam Note: Slava Note: Please also refer to the separate dictated note~for this date of service dictated separately.~Patient seen individually. Discussed the patient with Nursing staff reviewed the chart.~Reviewed interim history and current functioning. Reviewed vital signs,~Labs/ Radiology~and current medications noted below. Continue current treatment with the changes noted in the dictated addendum note Assessment: Vital Signs: Vital Signs Date Time Temp Pulse Resp B/P (MAP) Pulse Ox O2 Delivery O2 Flow Rate FiO2 12/11/17 16:46 98.0 93 20 96/58 (71) 94 12/10/17 16:51 Room Air I&O Intake and Output 12/11/17 07:00 Intake Total 1260 ml Balance 1260 ml Intake Oral 1260 ml Current Medications: Meds: Current Medications Acetaminophen (Tylenol) 650 mg PRN Q6HRS PRN PO PAIN / TEMP; Start 11/12/17 at 22:15; Stop 11/12/17 at 23:06; Status DC Al Hydroxide/Mg Hydroxide (Mylanta Plus Xs) 15 ml PRN AFTMEALHC PRN PO DYSPEPSIA; Start 11/12/17 at 22:15 Magnesium Hydroxide (Milk Of Magnesia) 2,400 mg PRN QHS PRN PO CONSTIPATION Last administered on 12/01/17at 05:33; Start 11/12/17 at 22:15 Lorazepam (Ativan) 0.5 mg TID PO Last administered on 11/14/17at 09:17; Start at 22:30; Stop 11/14/17 at 13:07; Status DC Mirtazapine (Remeron) 15 mg QHS PO Last administered on 12/11/17at 20:25; Start 11/12/17 at 22:30 Acetaminophen (Tylenol) 650 mg BID PO Last administered on 12/11/17at 20:25; Start 11/13/17 at 09:00 Acetaminophen (Tylenol) 650 mg PRN Q4HRS PRN PO PAIN / TEMP; Start 11/12/17 at 23:15 Vitamin D (Vitamin D3) 50,000 unit QTH PO Last administered on 12/05/17at 16:16 ; Start 11/14/17 at 16:00 Clopidogrel Bisulfate (Plavix) 75 mg DAILY PO Last administered on 12/11/17at 08 :09; Start 11/13/17 at 09:00 Levetiracetam (Keppra) 500 mg BID PO Last administered on 11/13/17at 08:34; Start 11/13/17 at 09:00; Stop 11/13/17 at 09:43; Status DC Levothyroxine Sodium (Synthroid) 100 mcg DAILYAC PO Last administered on at 09:17; Start 11/13/17 at 07:30; Stop 11/14/17 at 16:49; Status DC Acetaminophen/ Hydrocodone Bitart (Lortab 5/325) 1 tab PRN Q4HRS PRN PO PAIN Last administered on 12/07/17at 14:11; Start 11/12/17 at 23:15 Triamcinolone Acetonide (Kenalog) 1 jyoti PRN DAILY PRN TP ITCHING/REDNESS; Start 11/12/17 at 23:15 Multivitamins/ Minerals (I-Kevin) 1 tab DAILY PO Last administered on 12/11/17at 08:09; Start 11/13/17 at 09:00 Levetiracetam (Keppra) 500 mg BID PO Last administered on 12/11/17at 20:35; Start 11/13/17 at 10:00 Cyanocobalamin (Vitamin B-12) 1,000 mcg WEEKLY IM Last administered on at 08:14; Start 11/13/17 at 17:30 Lorazepam (Ativan) 0.5 mg BID PO ; Start 11/14/17 at 21:00; Stop 11/14/17 at 21: 00; Status DC Lorazepam (Ativan) 0.25 mg DAILY@1400 PRN PO ANXIETY / AGITATION; Start at 14:00; Stop 11/14/17 at 14:00; Status DC Lorazepam (Ativan) 0.25 mg DAILY PO Last administered on 11/23/17at 08:50; Start 11/16/17 at 09:00; Stop 11/23/17 at 09:01; Status DC Lorazepam (Ativan) 0.25 mg DAILY@1400 PO Last administered on 11/19/17at 13:00; Start 11/14/17 at 14:00; Stop 11/19/17 at 14:02; Status DC Lorazepam (Ativan) 0.5 mg QHS PO Last administered on 11/17/17 20:05; Start at 21:00; Stop 11/17/17 at 21:01; Status DC Lorazepam (Ativan) 0.25 mg QHS PO Last administered on 11/21/17 20:07; Start at 21:00; Stop 11/21/17 at 21:01; Status DC Lorazepam (Ativan) 0.5 mg DAILY PO Last administered on 11/15/17 09:43; Start 11/15/17 at 09:00; Stop 11/15/17 at 09:01; Status DC Levothyroxine Sodium (Synthroid) 100 mcg DAILY06 PO Last administered on 06:24; Start 11/15/17 at 06:00 Quetiapine Fumarate (SEROquel) 12.5 mg DAILY PO Last administered on 11/30/17 08:07; Start 11/15/17 at 09:00; Stop 11/30/17 at 20:29; Status DC Olanzapine (ZyPREXA ZYDIS) 1.25 mg PRN Q2HR PRN PO PSYCHOSIS Last administered on 12/10/17 18:29; Start 11/14/17 at 18:15 Quetiapine Fumarate (SEROquel) 6.25 mg DAILY@1300 PO Last administered on 14:07; Start 11/20/17 at 13:00; Stop 11/30/17 at 20:29; Status DC Bisacodyl (Dulcolax Supp) 10 mg PRN DAILY PRN [place] CONSTIPATION Last administered on 12/04/17at 22:31; Start 11/20/17 at 19:15 Melatonin 3 mg HS PO Last administered on 12/11/17 20:24; Start 11/20/17 at 21: 00 Trazodone HCl (Desyrel) 25 mg PRN QHS PRN PO INSOMNIA, MAY REPEAT X1 Last administered on 12/08/17at 00:29; Start 11/22/17 at 18:45 Polyethylene Glycol (miraLAX) 17 gm DAILY PO Last administered on 11/25/17 06: 28; Start 11/24/17 at 09:00; Stop 11/25/17 at 16:07; Status DC Quetiapine Fumarate (SEROquel) 6.25 mg DAILYBFRSUP PO Last administered on 11/30at 17:00; Start 11/24/17 at 19:00; Stop 11/30/17 at 20:32; Status DC Sennosides (Senna) 8.6 mg DAILY PO Last administered on 12/10/17at 08:42; Start 11/26/17 at 09:00 Quetiapine Fumarate (SEROquel) 12.5 mg TIDWMEALS PO Last administered on at 17:00; Start 12/01/17 at 08:00; Stop 12/10/17 at 18:48; Status DC Quetiapine Fumarate (SEROquel) 12.5 mg TIDWMEALS PO Last administered on at 09:02; Start 12/01/17 at 18:00; Stop 12/02/17 at 09:15; Status DC Cephalexin HCl (Keflex) 500 mg TID PO Last administered on 12/11/17at 20:23; Start 12/06/17 at 21:00 Lactobacillus Rhamnosus (Culturelle) 1 cap BID PO Last administered on at 20:24; Start 12/06/17 at 21:00 Quetiapine Fumarate (SEROquel) 12.5 mg QID PO Last administered on 12/11/17at 20 :24; Start 12/10/17 at 21:00 Active Scripts Active Reported D3-50 (Cholecalciferol (Vitamin D3)) 50,000 Unit Capsule 50,000 Unit PO QTH Vicodin 5-300 Mg Tablet (Hydrocodone Bit/Acetaminophen) 1 Each Tablet 1 Tab PO PRN Q4HRS PRN Tylenol (Acetaminophen) 325 Mg Tablet 650 Mg PO BID Tylenol (Acetaminophen) 325 Mg Tablet 650 Mg PO PRN Q4HRS PRN Triamcinolone Acetonide 15 Gm Cream..g. 1 Gm TP PRN DAILY PRN Remeron (Mirtazapine) 15 Mg Tablet 7.5 Mg PO QHS Preservision Areds Softgel (Vit A/Vit C/Vit E/Zinc/Copper) 1 Each Capsule 1 Cap PO DAILY Lorazepam 0.5 Mg Tablet 0.5 Mg PO TID Levothyroxine Sodium 100 Mcg Tablet 100 Mcg PO DAILYAC Keppra (Levetiracetam) 500 Mg Tablet 500 Mg PO BID Clopidogrel (Clopidogrel Bisulfate) 75 Mg Tablet 75 Mg PO DAILY I have reviewed the current psychotropics carefully including drug interactions. Risk benefit ratio favors no change other than as noted in my dictated progress note. Diagnosis: Problems: (1) Dementia (2) Combative behavior (3) Anxiety disorder (4) Dementia in Alzheimer's disease with delusions (5) Dementia in Alzheimer's disease with depression (6) Dementia, vascular, with delusions (7) Dementia, vascular, with depression (8) Impulse control disorder (9) Psychosis, atypical AYSHA SEPULVEDA MD December 11, 2017 20:38
[2017-12-12] MEDS: LEVOTHYROXINE 100 MCG TABLET PO SCH (05:08)
[2017-12-12 05:54] VITALS: BP 116/64
--- NOTE | 2017-12-12 06:57 | PN ---
DATE: 12/10/2017 PSYCHIATRIC PROGRESS NOTE This late entry 12/10/2017 covers elements not covered in my initial note 12/10/2017. SUBJECTIVE: I met with the patient evening of 12/10/2017. The patient slept 6-1/2 hours previous evening, has done reasonably well during the day, but by the evening when I met with him, he was quite agitated, labile, yelling, screaming which persisted for a long period of time. Earlier in the day; he was pleasant, joking, compliant with his medications. Previous evening, he was delusional that someone was attacking him in his wheelchair per nursing report. REVIEW OF SYSTEMS: Ambulation impaired, in wheelchair. No CV, , pulmonary, eye, ENT system symptoms on review. Reliability poor. MENTAL STATUS EXAM: Oriented to himself. Insight, judgment, recent and remote memory, attention, concentration, fund of knowledge poor, consistent with his diagnosis mentioned in my initial note. IMPRESSION: Major neurocognitive disorder, Alzheimer, vascular with delusion, depression, behavioral disturbance. Rest unchanged. PLAN: Change the Seroquel scheduled to 12.5 mg 8:00 a.m., 12:00 noon, 3:00 p.m., and 7:00 p.m. Continue rest unchanged per initial note. MAN Rosas SEPULVEDA MD DR: CHASE/wally JOB#: [id number] / [id number]
[2017-12-12] MEDS: ACETAMINOPHEN 325 MG TABLET PO SCH ×2 (08:54→21:41)
[2017-12-12] MEDS: SENNOSIDES 8.6 MG TABLET PO SCH (08:54)
[2017-12-12] MEDS: CEPHALEXIN 250 MG CAPSULE PO SCH ×3 (08:54→21:40)
[2017-12-12] MEDS: CLOPIDOGREL BISULFATE 75 MG TABLET PO SCH (08:54)
[2017-12-12] MEDS: MULTIVITAMIN I-VITE TABLET. PO SCH (08:55)
[2017-12-12] MEDS: QUEtiapine 25 MG TABLET. PO SCH ×4 (08:55→21:40)
[2017-12-12] MEDS: LACTOBACILLUS RHAMNOSUS GG 1 CAPSULE. PO SCH ×2 (08:55→21:40)
[2017-12-12] MEDS: CHOLECALCIFEROL (VITAMIN D3) 50,000 UNIT CAPSULE PO SCH (16:09)
[2017-12-12 16:11] VITALS: BP 102/58
--- NOTE | 2017-12-12 20:54 | PDOC ---
Exam Note: Slava Note: Please also refer to the separate dictated note~for this date of service dictated separately.~Patient seen individually. Discussed the patient with Nursing staff reviewed the chart.~Reviewed interim history and current functioning. Reviewed vital signs,~Labs/ Radiology~and current medications noted below. Continue current treatment with the changes noted in the dictated addendum note Assessment: Vital Signs: Vital Signs Date Time Temp Pulse Resp B/P (MAP) Pulse Ox O2 Delivery O2 Flow Rate FiO2 12/12/17 16:11 97.7 85 19 102/58 (73) 97 12/10/17 16:51 Room Air I&O Intake and Output 12/12/17 07:00 Intake Total 600 ml Balance 600 ml Intake Oral 600 ml Current Medications: Meds: Current Medications Acetaminophen (Tylenol) 650 mg PRN Q6HRS PRN PO PAIN / TEMP; Start 11/12/17 at 22:15; Stop 11/12/17 at 23:06; Status DC Al Hydroxide/Mg Hydroxide (Mylanta Plus Xs) 15 ml PRN AFTMEALHC PRN PO DYSPEPSIA; Start 11/12/17 at 22:15 Magnesium Hydroxide (Milk Of Magnesia) 2,400 mg PRN QHS PRN PO CONSTIPATION Last administered on 12/01/17at 05:33; Start 11/12/17 at 22:15 Lorazepam (Ativan) 0.5 mg TID PO Last administered on 11/14/17at 09:17; Start at 22:30; Stop 11/14/17 at 13:07; Status DC Mirtazapine (Remeron) 15 mg QHS PO Last administered on 12/11/17at 20:25; Start 11/12/17 at 22:30 Acetaminophen (Tylenol) 650 mg BID PO Last administered on 12/12/17at 08:54; Start 11/13/17 at 09:00 Acetaminophen (Tylenol) 650 mg PRN Q4HRS PRN PO PAIN / TEMP; Start 11/12/17 at 23:15 Vitamin D (Vitamin D3) 50,000 unit QTH PO Last administered on 12/12/17at 16:09 ; Start 11/14/17 at 16:00 Clopidogrel Bisulfate (Plavix) 75 mg DAILY PO Last administered on 12/12/17at 08 :54; Start 11/13/17 at 09:00 Levetiracetam (Keppra) 500 mg BID PO Last administered on 11/13/17at 08:34; Start 11/13/17 at 09:00; Stop 11/13/17 at 09:43; Status DC Levothyroxine Sodium (Synthroid) 100 mcg DAILYAC PO Last administered on at 09:17; Start 11/13/17 at 07:30; Stop 11/14/17 at 16:49; Status DC Acetaminophen/ Hydrocodone Bitart (Lortab 5/325) 1 tab PRN Q4HRS PRN PO PAIN Last administered on 12/07/17at 14:11; Start 11/12/17 at 23:15 Triamcinolone Acetonide (Kenalog) 1 jyoti PRN DAILY PRN TP ITCHING/REDNESS; Start 11/12/17 at 23:15 Multivitamins/ Minerals (I-Kevin) 1 tab DAILY PO Last administered on 12/12/17at 08:55; Start 11/13/17 at 09:00 Levetiracetam (Keppra) 500 mg BID PO Last administered on 12/12/17at 08:56; Start 11/13/17 at 10:00 Cyanocobalamin (Vitamin B-12) 1,000 mcg WEEKLY IM Last administered on at 08:14; Start 11/13/17 at 17:30 Lorazepam (Ativan) 0.5 mg BID PO ; Start 11/14/17 at 21:00; Stop 11/14/17 at 21: 00; Status DC Lorazepam (Ativan) 0.25 mg DAILY@1400 PRN PO ANXIETY / AGITATION; Start at 14:00; Stop 11/14/17 at 14:00; Status DC Lorazepam (Ativan) 0.25 mg DAILY PO Last administered on 11/23/17at 08:50; Start 11/16/17 at 09:00; Stop 11/23/17 at 09:01; Status DC Lorazepam (Ativan) 0.25 mg DAILY@1400 PO Last administered on 11/19/17at 13:00; Start 11/14/17 at 14:00; Stop 11/19/17 at 14:02; Status DC Lorazepam (Ativan) 0.5 mg QHS PO Last administered on 11/17/17 20:05; Start at 21:00; Stop 11/17/17 at 21:01; Status DC Lorazepam (Ativan) 0.25 mg QHS PO Last administered on 11/21/17 20:07; Start at 21:00; Stop 11/21/17 at 21:01; Status DC Lorazepam (Ativan) 0.5 mg DAILY PO Last administered on 11/15/17at 09:43; Start 11/15/17 at 09:00; Stop 11/15/17 at 09:01; Status DC Levothyroxine Sodium (Synthroid) 100 mcg DAILY06 PO Last administered on 05:08; Start 11/15/17 at 06:00 Quetiapine Fumarate (SEROquel) 12.5 mg DAILY PO Last administered on 11/30/17 08:07; Start 11/15/17 at 09:00; Stop 11/30/17 at 20:29; Status DC Olanzapine (ZyPREXA ZYDIS) 1.25 mg PRN Q2HR PRN PO PSYCHOSIS Last administered on 12/10/17 18:29; Start 11/14/17 at 18:15 Quetiapine Fumarate (SEROquel) 6.25 mg DAILY@1300 PO Last administered on 14:07; Start 11/20/17 at 13:00; Stop 11/30/17 at 20:29; Status DC Bisacodyl (Dulcolax Supp) 10 mg PRN DAILY PRN [place] CONSTIPATION Last administered on 12/04/17 22:31; Start 11/20/17 at 19:15 Melatonin 3 mg HS PO Last administered on 12/11/17 20:24; Start 11/20/17 at 21: 00 Trazodone HCl (Desyrel) 25 mg PRN QHS PRN PO INSOMNIA, MAY REPEAT X1 Last administered on 12/08/17at 00:29; Start 11/22/17 at 18:45 Polyethylene Glycol (miraLAX) 17 gm DAILY PO Last administered on 11/25/17 06: 28; Start 11/24/17 at 09:00; Stop 11/25/17 at 16:07; Status DC Quetiapine Fumarate (SEROquel) 6.25 mg DAILYBFRSUP PO Last administered on 11/30at 17:00; Start 11/24/17 at 19:00; Stop 11/30/17 at 20:32; Status DC Sennosides (Senna) 8.6 mg DAILY PO Last administered on 12/12/17at 08:54; Start 11/26/17 at 09:00 Quetiapine Fumarate (SEROquel) 12.5 mg TIDWMEALS PO Last administered on at 17:00; Start 12/01/17 at 08:00; Stop 12/10/17 at 18:48; Status DC Quetiapine Fumarate (SEROquel) 12.5 mg TIDWMEALS PO Last administered on at 09:02; Start 12/01/17 at 18:00; Stop 12/02/17 at 09:15; Status DC Cephalexin HCl (Keflex) 500 mg TID PO Last administered on 12/12/17 12:31; Start 12/06/17 at 21:00 Lactobacillus Rhamnosus (Culturelle) 1 cap BID PO Last administered on at 08:55; Start 12/06/17 at 21:00 Quetiapine Fumarate (SEROquel) 12.5 mg QID PO Last administered on 12/12/17at 16 :10; Start 12/10/17 at 21:00 Active Scripts Active Reported D3-50 (Cholecalciferol (Vitamin D3)) 50,000 Unit Capsule 50,000 Unit PO QTH Vicodin 5-300 Mg Tablet (Hydrocodone Bit/Acetaminophen) 1 Each Tablet 1 Tab PO PRN Q4HRS PRN Tylenol (Acetaminophen) 325 Mg Tablet 650 Mg PO BID Tylenol (Acetaminophen) 325 Mg Tablet 650 Mg PO PRN Q4HRS PRN Triamcinolone Acetonide 15 Gm Cream..g. 1 Gm TP PRN DAILY PRN Remeron (Mirtazapine) 15 Mg Tablet 7.5 Mg PO QHS Preservision Areds Softgel (Vit A/Vit C/Vit E/Zinc/Copper) 1 Each Capsule 1 Cap PO DAILY Lorazepam 0.5 Mg Tablet 0.5 Mg PO TID Levothyroxine Sodium 100 Mcg Tablet 100 Mcg PO DAILYAC Keppra (Levetiracetam) 500 Mg Tablet 500 Mg PO BID Clopidogrel (Clopidogrel Bisulfate) 75 Mg Tablet 75 Mg PO DAILY I have reviewed the current psychotropics carefully including drug interactions. Risk benefit ratio favors no change other than as noted in my dictated progress note. 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
[2017-12-12] MEDS: MIRTAZAPINE 15 MG TABLET PO SCH (21:40)
[2017-12-12] MEDS: MELATONIN 3 MG TABLET PO SCH (21:46)
[2017-12-13] MEDS: traZODone 50 MG TABLET. PO PRN (00:59)
[2017-12-13] MEDS ORDERED: BISA10SU55 RC (02:46)
[2017-12-13] MEDS ORDERED: CYAN10002 IM (02:53)
[2017-12-13] MEDS ORDERED: HYDR-2758 PO (02:55)
[2017-12-13] MEDS ORDERED: LACT1CAP21 PO (02:56)
[2017-12-13] MEDS ORDERED: MAG30ORA2 PO (02:58)
[2017-12-13] MEDS ORDERED: MAGN2400 PO (02:59)
[2017-12-13] MEDS ORDERED: MELA3TAB2 PO (03:00)
[2017-12-13] MEDS ORDERED: VIT1TABL8 PO (03:01)
[2017-12-13] MEDS ORDERED: OLAN2.5T11 PO (03:02)
[2017-12-13] MEDS ORDERED: QUET25TA5 PO (03:04)
[2017-12-13] MEDS ORDERED: SENN8.6T99 PO (03:06)
[2017-12-13] MEDS ORDERED: TRAZ50TA15 PO (03:09)
[2017-12-13] MEDS: LEVOTHYROXINE 100 MCG TABLET PO SCH (05:07)
[2017-12-13 05:17] VITALS: BP 122/60
[2017-12-13] MEDS: MULTIVITAMIN I-VITE TABLET. PO SCH (09:53)
[2017-12-13] MEDS: CLOPIDOGREL BISULFATE 75 MG TABLET PO SCH (09:53)
[2017-12-13] MEDS: CEPHALEXIN 250 MG CAPSULE PO SCH (09:54)
[2017-12-13] MEDS: QUEtiapine 25 MG TABLET. PO SCH (09:54)
[2017-12-13] MEDS: ACETAMINOPHEN 325 MG TABLET PO SCH (09:54)
[2017-12-13] MEDS: LACTOBACILLUS RHAMNOSUS GG 1 CAPSULE. PO SCH (09:54)
[2017-12-13] MEDS: SENNOSIDES 8.6 MG TABLET PO SCH (09:54)
--- NOTE | 2017-12-13 18:50 | PDOC ---
Exam Note: Slava Note: Please also refer to the separate dictated note~for this date of service dictated separately.~Patient seen individually. Discussed the patient with Nursing staff reviewed the chart.~Reviewed interim history and current functioning. Reviewed vital signs,~Labs/ Radiology~and current medications noted below. Continue current treatment with the changes noted in the dictated addendum note Assessment: Vital Signs: Vital Signs Date Time Temp Pulse Resp B/P (MAP) Pulse Ox O2 Delivery O2 Flow Rate FiO2 12/13/17 05:17 97.1 80 18 122/60 (80) 97 Room Air I&O Intake and Output 12/13/17 07:00 Intake Total 1440 ml Balance 1440 ml Intake Oral 1440 ml Current Medications: Meds: Current Medications Acetaminophen (Tylenol) 650 mg PRN Q6HRS PRN PO PAIN / TEMP; Start 11/12/17 at 22:15; Stop 11/12/17 at 23:06; Status DC Al Hydroxide/Mg Hydroxide (Mylanta Plus Xs) 15 ml PRN AFTMEALHC PRN PO DYSPEPSIA; Start 11/12/17 at 22:15; Stop 12/13/17 at 12:05; Status DC Magnesium Hydroxide (Milk Of Magnesia) 2,400 mg PRN QHS PRN PO CONSTIPATION Last administered on 12/01/17at 05:33; Start 11/12/17 at 22:15; Stop 12/13/17 at 12:05; Status DC Lorazepam (Ativan) 0.5 mg TID PO Last administered on 11/14/17at 09:17; Start at 22:30; Stop 11/14/17 at 13:07; Status DC Mirtazapine (Remeron) 15 mg QHS PO Last administered on 12/12/17at 21:40; Start 11/12/17 at 22:30; Stop 12/13/17 at 12:05; Status DC Acetaminophen (Tylenol) 650 mg BID PO Last administered on 12/13/17at 09:54; Start 11/13/17 at 09:00; Stop 12/13/17 at 12:05; Status DC Acetaminophen (Tylenol) 650 mg PRN Q4HRS PRN PO PAIN / TEMP; Start 11/12/17 at 23:15; Stop 12/13/17 at 12:05; Status DC Vitamin D (Vitamin D3) 50,000 unit QTH PO Last administered on 12/12/17at 16:09 ; Start 11/14/17 at 16:00; Stop 12/13/17 at 12:05; Status DC Clopidogrel Bisulfate (Plavix) 75 mg DAILY PO Last administered on 12/13/17at 09 :53; Start 11/13/17 at 09:00; Stop 12/13/17 at 12:05; Status DC Levetiracetam (Keppra) 500 mg BID PO Last administered on 11/13/17at 08:34; Start 11/13/17 at 09:00; Stop 11/13/17 at 09:43; Status DC Levothyroxine Sodium (Synthroid) 100 mcg DAILYAC PO Last administered on at 09:17; Start 11/13/17 at 07:30; Stop 11/14/17 at 16:49; Status DC Acetaminophen/ Hydrocodone Bitart (Lortab 5/325) 1 tab PRN Q4HRS PRN PO PAIN Last administered on 12/07/17at 14:11; Start 11/12/17 at 23:15; Stop 12/13/17 at 12:05; Status DC Triamcinolone Acetonide (Kenalog) 1 alize PRN DAILY PRN TP ITCHING/REDNESS; Start 11/12/17 at 23:15; Stop 12/13/17 at 12:05; Status DC Multivitamins/ Minerals (I-Kevin) 1 tab DAILY PO Last administered on 12/13/17at 09:53; Start 11/13/17 at 09:00; Stop 12/13/17 at 12:05; Status DC Levetiracetam (Keppra) 500 mg BID PO Last administered on 12/13/17at 10:00; Start 11/13/17 at 10:00; Stop 12/13/17 at 12:05; Status DC Cyanocobalamin (Vitamin B-12) 1,000 mcg WEEKLY IM Last administered on at 08:14; Start 11/13/17 at 17:30; Stop 12/13/17 at 12:05; Status DC Lorazepam (Ativan) 0.5 mg BID PO ; Start 11/14/17 at 21:00; Stop 11/14/17 at 21: 00; Status DC Lorazepam (Ativan) 0.25 mg DAILY@1400 PRN PO ANXIETY / AGITATION; Start at 14:00; Stop 11/14/17 at 14:00; Status DC Lorazepam (Ativan) 0.25 mg DAILY PO Last administered on 11/23/17at 08:50; Start 11/16/17 at 09:00; Stop 11/23/17 at 09:01; Status DC Lorazepam (Ativan) 0.25 mg DAILY@1400 PO Last administered on 11/19/17at 13:00; Start 11/14/17 at 14:00; Stop 11/19/17 at 14:02; Status DC Lorazepam (Ativan) 0.5 mg QHS PO Last administered on 11/17/17at 20:05; Start at 21:00; Stop 11/17/17 at 21:01; Status DC Lorazepam (Ativan) 0.25 mg QHS PO Last administered on 11/21/17at 20:07; Start at 21:00; Stop 11/21/17 at 21:01; Status DC Lorazepam (Ativan) 0.5 mg DAILY PO Last administered on 11/15/17at 09:43; Start 11/15/17 at 09:00; Stop 11/15/17 at 09:01; Status DC Levothyroxine Sodium (Synthroid) 100 mcg DAILY06 PO Last administered on 05:07; Start 11/15/17 at 06:00; Stop 12/13/17 at 12:05; Status DC Quetiapine Fumarate (SEROquel) 12.5 mg DAILY PO Last administered on 11/30/17at 08:07; Start 11/15/17 at 09:00; Stop 11/30/17 at 20:29; Status DC Olanzapine (ZyPREXA ZYDIS) 1.25 mg PRN Q2HR PRN PO PSYCHOSIS Last administered on 12/10/17at 18:29; Start 11/14/17 at 18:15; Stop 12/13/17 at 12:05; Status DC Quetiapine Fumarate (SEROquel) 6.25 mg DAILY@1300 PO Last administered on at 14:07; Start 11/20/17 at 13:00; Stop 11/30/17 at 20:29; Status DC Bisacodyl (Dulcolax Supp) 10 mg PRN DAILY PRN [place] CONSTIPATION Last administered on 12/04/17at 22:31; Start 11/20/17 at 19:15; Stop 12/13/17 at 12:05 ; Status DC Melatonin 3 mg HS PO Last administered on 12/12/17at 21:46; Start 11/20/17 at 21: 00; Stop 12/13/17 at 12:05; Status DC Trazodone HCl (Desyrel) 25 mg PRN QHS PRN PO INSOMNIA, MAY REPEAT X1 Last administered on 12/13/17at 00:59; Start 11/22/17 at 18:45; Stop 12/13/17 at 12:05 ; Status DC Polyethylene Glycol (miraLAX) 17 gm DAILY PO Last administered on 11/25/17at 06: 28; Start 11/24/17 at 09:00; Stop 11/25/17 at 16:07; Status DC Quetiapine Fumarate (SEROquel) 6.25 mg DAILYBFRSUP PO Last administered on 11/30at 17:00; Start 11/24/17 at 19:00; Stop 11/30/17 at 20:32; Status DC Sennosides (Senna) 8.6 mg DAILY PO Last administered on 12/13/17at 09:54; Start 11/26/17 at 09:00; Stop 12/13/17 at 12:05; Status DC Quetiapine Fumarate (SEROquel) 12.5 mg TIDWMEALS PO Last administered on at 17:00; Start 12/01/17 at 08:00; Stop 12/10/17 at 18:48; Status DC Quetiapine Fumarate (SEROquel) 12.5 mg TIDWMEALS PO Last administered on at 09:02; Start 12/01/17 at 18:00; Stop 12/02/17 at 09:15; Status DC Cephalexin HCl (Keflex) 500 mg TID PO Last administered on 12/13/17at 09:54; Start 12/06/17 at 21:00; Stop 12/13/17 at 12:05; Status DC Lactobacillus Rhamnosus (Culturelle) 1 cap BID PO Last administered on at 09:54; Start 12/06/17 at 21:00; Stop 12/13/17 at 12:05; Status DC Quetiapine Fumarate (SEROquel) 12.5 mg QID PO Last administered on 12/13/17at 09 :54; Start 12/10/17 at 21:00; Stop 12/13/17 at 12:05; Status DC Active Scripts Active Reported Trazodone Hcl 50 Mg Tablet 25 Mg PO PRN QHS PRN Senokot (Sennosides) 8.6 Mg Tablet 8.6 Mg PO DAILY Seroquel (Quetiapine Fumarate) 25 Mg Tablet 12.5 Mg PO QID 0600, 0900, 1300, 1700 Olanzapine 2.5 Mg Tablet 1.25 Mg PO PRN Q2HR PRN dissolve in mouth. max 5mg/24hrs. I-Kevin Tablet (Vit A,C & E/Lutein/Minerals) 1 Each Tablet 1 Each PO DAILY Melatonin 3 Mg Tablet 3 Mg PO QHS Milk Of Magnesia (Magnesium Hydroxide) 2,400 Mg/10 Ml Oral.susp 2,400 Mg PO PRN QHS PRN Mag-Al Plus Xs Suspension (Mag Hydrox/Al Hydrox/Simeth) 30 Ml Oral.susp 15 Ml PO PRN AFTMEALHC PRN Culturelle (Lactobacillus Rhamnosus Gg) 1 Each Capsule 1 Each PO BID Hydrocodone-Apap 5-325 (Hydrocodone Bit/Acetaminophen) 1 Each Tablet 1 Tab PO PRN Q4HRS PRN Cyanocobalamin Injection (Cyanocobalamin (Vitamin B-12)) 1,000 Mcg/1 Ml Vial 1, 000 Mcg IM QMONTH next due 01/10/18 Cephalexin 500 Mg Tablet 500 Mg PO TID for 10 days Dulcolax (Bisacodyl) 10 Mg Supp.rect 10 Mg RC PRN DAILY PRN D3-50 (Cholecalciferol (Vitamin D3)) 50,000 Unit Capsule 50,000 Unit PO QTH Tylenol (Acetaminophen) 325 Mg Tablet 650 Mg PO BID Max 4000mg/24hrs from all sources. Tylenol (Acetaminophen) 325 Mg Tablet 650 Mg PO PRN Q4HRS PRN Max 4000mg/24hrs from all sources. Triamcinolone Acetonide 15 Gm Cream..g. 1 Alize TP PRN DAILY PRN Remeron (Mirtazapine) 15 Mg Tablet 15 Mg PO QHS Levothyroxine Sodium 100 Mcg Tablet 100 Mcg PO DAILY06 Keppra (Levetiracetam) 500 Mg Tablet 500 Mg PO BID Clopidogrel (Clopidogrel Bisulfate) 75 Mg Tablet 75 Mg PO DAILY I have reviewed the current psychotropics carefully including drug interactions. Risk benefit ratio favors no change other than as noted in my dictated progress note. Diagnosis: Problems: (1) Psychosis, atypical (2) Impulse control disorder (3) Dementia, vascular, with depression (4) Dementia, vascular, with delusions (5) Dementia in Alzheimer's disease with depression (6) Dementia in Alzheimer's disease with delusions (7) Anxiety disorder AYSHA SEPULVEDA MD December 13, 2017 18:50
--- NOTE | 2017-12-13 22:02 | PN ---
DATE: 12/11/2017 This is a late entry, 12/11/2017, covers the elements not covered in my initial note, 12/11/2017. SUBJECTIVE: I met with the patient in the evening. The patient slept 6-3/4 hours, had a good day, less yelling. REVIEW OF SYSTEMS: Ambulation impaired, in wheelchair. No CV, , pulmonary, eye, ENT system symptoms on review. Reliability poor. MENTAL STATUS EXAM: Oriented to himself. Insight, judgment, recent and remote memory, attention, concentration, fund of knowledge poor, consistent with his diagnosis as mentioned in my initial note. PLAN: Continue current psychotropics. Adjust as indicated. MAN Rosas SEPULVEDA MD DR: CHASE/wally JOB#: [id number] / [id number]
--- NOTE | 2017-12-13 22:05 | PN ---
DATE: 12/12/2017 PSYCHIATRIC PROGRESS NOTE This is a late entry 12/12/2017 covers elements not covered in my initial note 12/12/2017. SUBJECTIVE: I met with the patient in the evening, staffed at a treatment team meeting with the entire team in the morning and the patient's son, Celestino attended the conference. Reviewed his history, diagnosis, current medications, UTI which had recurred worsening his symptoms and this is since being treated on Keflex. REVIEW OF SYSTEMS: Ambulation impaired, in wheelchair. No CV, , pulmonary, eye, ENT system symptoms on review. MENTAL STATUS EXAM: Oriented to himself. Insight, judgment, recent and remote memory, attention, concentration, fund of knowledge poor, consistent with his diagnosis mentioned in my initial note. PLAN: Continue psychotropics mentioned in my initial note. MAN Rosas SEPULVEDA MD DR: CHASE/wally JOB#: [id number] / [id number]
--- NOTE | 2017-12-17 23:12 | DS ---
DATE OF DISCHARGE: 12/13/2017 This is a late entry, 12/13/2017, covers the elements not covered in my initial note, 12/13/2017. REASON FOR ADMISSION: Please refer to the admission history for details. Briefly, the patient is an 87-year-old male referred to us from [facility] by his primary care physician and psychiatrist on account of worsening confusion, being combative, marked restlessness, increased falls, and worsening disorientation. He had failed outpatient psychiatric interventions resulting in this referral. SIGNIFICANT FINDINGS AND CLINICAL COURSE: Following admission, the patient was seen daily individually by myself from a psychiatric standpoint, medical followup per Dr. Martins/Dr. Martin. The patient was extremely confused, withdrawn, irritable, and labile. Multiple changes in his medications were made in gradually escalating manner. He finally seemed to respond to a combination of Seroquel 12.5 mg 0600, 0900, 1300, 1700; melatonin 3 mg at bedtime; trazodone 25 mg at bedtime p.r.n., may repeat x 1; Zyprexa p.r.n.; Remeron 7.5 mg at bedtime; and was also on Keppra 500 mg b.i.d. He did have a UTI, which made his behaviors much worse with marked mood lability, postponed the discharge significantly, but then all of this seemed to resolve with further adjustments of his psychotropics in addition to treating the UTI. He was significantly improved at discharge, but still confused. REVIEW OF SYSTEMS: Prior to discharge, 12/13/2017, notes ambulation impaired, in a wheelchair. No CV, , pulmonary, eye, ENT system symptoms on review. MENTAL STATUS EXAM: Oriented to himself. Insight, judgment, recent and remote memory, attention, concentration, fund of knowledge poor, and consistent with his diagnosis. FINAL DIAGNOSES: Major neurocognitive disorder, Alzheimer, vascular with delusion, depression, behavioral disturbance; anxiety disorder, unspecified; impulse control disorder, unspecified. Rest unchanged from admission. DISCHARGE MEDICATIONS: Please refer to the [facility]. DISCHARGE INSTRUCTIONS: Outpatient psychiatric and medical followup at the [facility]. AYSHA SEPULVEDA MD DR: CHASE/wally JOB#: [id number] / [id number]
== END 2017-12-13 11:10 | disposition home or self-care (01) | DRG 57 ==
LOC: ER 19:06 → GEROPSY 21:13
PROVIDERS: ADMIT Psychiatry & Neurology Psychiatry; ATTEND Psychiatry & Neurology Psychiatry
DX: G30.9 Alzheimer's disease, unspecified (principal); F01.51 Vascular dementia, unspecified severity, with behavioral disturbance; G40.909 Epilepsy, unspecified, not intractable, without status epilepticus; F02.81 Dementia in other diseases classified elsewhere, unspecified severity, with behavioral disturbance; N39.0 Urinary tract infection, site not specified; F32.9 Major depressive disorder, single episode, unspecified; E03.9 Hypothyroidism, unspecified; F41.1 Generalized anxiety disorder; F63.9 Impulse disorder, unspecified; H35.30 Unspecified macular degeneration; K59.00 Constipation, unspecified; R29.6 Repeated falls; Z66 Do not resuscitate; Z79.899 Other long term (current) drug therapy; Z87.442 Personal history of urinary calculi; Z88.6 Allergy status to analgesic agent
CPT/HCPCS: 36415; 74018; 80053; 80061; 80307; 81001; 82306; 82607; 82947; 83036; 83540; 83550; 83735; 84436; 84443; 84480; 85025; 86593; 87086; 93005; J3420; G0479